=== PATIENT | male | born 1945 | race Caucasian/White ===

== ENCOUNTER 2023-02-03 17:55 | Outpatient (RCR) | payer MEDICARE, SELFPAY | END 2023-02-28 23:59 | disposition home or self-care (01) | LOC: MM 17:55 | PROVIDERS: PCP Internal Medicine; Visit Provider Internal Medicine | DX: Z51.81 Encounter for therapeutic drug level monitoring (principal); Z79.01 Long term (current) use of anticoagulants; I48.91 Unspecified atrial fibrillation | CPT/HCPCS: 85610; G0463 ==

== ENCOUNTER 2023-03-05 10:58 | Outpatient (RCR) | payer MEDICARE, SELFPAY | END 2023-03-31 16:46 | disposition home or self-care (01) | LOC: MM 10:58 | PROVIDERS: PCP Internal Medicine; Visit Provider Internal Medicine | DX: Z51.81 Encounter for therapeutic drug level monitoring (principal); Z79.01 Long term (current) use of anticoagulants; I48.91 Unspecified atrial fibrillation ==

== ENCOUNTER 2023-04-01 08:58 | Outpatient (RCR) | payer MEDICARE, SELFPAY | END 2023-05-01 15:48 | disposition home or self-care (01) | LOC: MM 08:58 | PROVIDERS: Visit Provider Internal Medicine | DX: Z51.81 Encounter for therapeutic drug level monitoring (principal); Z79.01 Long term (current) use of anticoagulants; I48.91 Unspecified atrial fibrillation | CPT/HCPCS: 85610; G0463 ==

== ENCOUNTER 2023-05-02 08:03 | Outpatient (RCR) | payer MEDICARE, SELFPAY | END 2023-05-30 16:32 | disposition home or self-care (01) | LOC: MM 08:03 | PROVIDERS: Visit Provider Internal Medicine | DX: Z51.81 Encounter for therapeutic drug level monitoring (principal); Z79.01 Long term (current) use of anticoagulants; I48.91 Unspecified atrial fibrillation | CPT/HCPCS: 85610; G0463 ==

== ENCOUNTER 2023-06-02 01:28 | Outpatient (RCR) | payer MEDICARE, SELFPAY | END 2023-07-01 17:11 | disposition home or self-care (01) | LOC: MM 01:28 | PROVIDERS: Visit Provider Internal Medicine | DX: Z51.81 Encounter for therapeutic drug level monitoring (principal); Z79.01 Long term (current) use of anticoagulants; I48.91 Unspecified atrial fibrillation | CPT/HCPCS: 85610; G0463 ==

== ENCOUNTER 2023-07-02 00:33 | Outpatient (RCR) | payer MEDICARE, SELFPAY | END 2023-07-31 16:35 | disposition home or self-care (01) | LOC: MM 00:33 | PROVIDERS: Visit Provider Internal Medicine | DX: Z51.81 Encounter for therapeutic drug level monitoring (principal); Z79.01 Long term (current) use of anticoagulants; I48.91 Unspecified atrial fibrillation ==

== ENCOUNTER 2023-08-01 08:57 | Outpatient (RCR) | payer MEDICARE, SELFPAY | END 2023-08-29 15:00 | disposition home or self-care (01) | LOC: MM 08:57 | PROVIDERS: Visit Provider Internal Medicine | DX: Z51.81 Encounter for therapeutic drug level monitoring (principal); Z79.01 Long term (current) use of anticoagulants; I48.91 Unspecified atrial fibrillation | CPT/HCPCS: 85610; G0463 ==

== ENCOUNTER 2023-08-14 09:03 | Outpatient (OUT) | payer MEDICARE, SELFPAY ==
[2023-08-14 09:14] LABS: Basophils Absolute Auto 0.1 10^3/uL (0.0-0.1); Basophils Percent Auto 1.1 % (0.2-2.0); Eosinophils Absolute Auto 0.1 10^3/uL (0.0-0.7); Eosinophils Percent Auto 1.8 % (0.9-7.0); Hematocrit 47.2 % (42.0-54.0); Hemoglobin 15.5 g/dL (14.0-18.0); Immature Granulocytes Abs Auto 0.02 10^3/uL (0.00-0.03); Immature Granulocytes Pct Auto 0.4 % (0.0-0.5); Lymphocytes Absolute Auto 1.3 10^3/uL (1.2-3.8); Lymphocytes Percent Auto 22.4 % (20.5-60.0); Mean Corpuscular HGB Conc 32.8 g/dL (29.9-35.2); Mean Corpuscular Volume 97.3 fL (80.0-94.0); Mean Platelet Volume 10.3 fL (9.5-13.5); Monocytes Absolute Auto 0.5 10^3/uL (0.3-0.8); Monocytes Percent Auto 9.3 % (1.7-12.0); Neutrophils Absolute Auto 3.7 10^3/uL (1.4-6.5); Platelet Count 161 10^3/uL (150-450); Red Blood Count 4.85 10^6/uL (4.70-6.10); Red Cell Distribution Width 12.5 % (11.0-15.0); White Blood Count 5.7 10^3/uL (4.0-11.0)
[2023-08-14 09:49] LABS: Anion Gap 10.3; BUN Creatinine Ratio 14.2; Calcium 8.8 mg/dL (8.5-10.1); Carbon Dioxide 29.8 mmol/L (21.0-32.0); Chloride 102 mmol/L (98-107); Chol HDL Ratio 3.8; Cholesterol 226 mg/dL (<=200); Estimated GFR (African America >60 (>=60); Estimated GFR (Non-African Ame >60 (>=60); Glucose 100 mg/dL (74-106); HDL Cholesterol 60 mg/dL (40-60); Potassium 4.1 mmol/L (3.5-5.1); Sodium 138 mmol/L (136-145); Triglycerides 73 mg/dL (<=150); VLDL CHOLESTEROL 14.6 mg/dL
== END 2023-08-14 09:04 | disposition home or self-care (01) ==
LOC: LAB 09:03
PROVIDERS: PCP Internal Medicine; Visit Provider Internal Medicine
DX: E78.00 Pure hypercholesterolemia, unspecified (principal); I25.10 Atherosclerotic heart disease of native coronary artery without angina pectoris; Z12.5 Encounter for screening for malignant neoplasm of prostate; Z79.01 Long term (current) use of anticoagulants; Z79.899 Other long term (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
CPT/HCPCS: 36415; 80048; 80061; 85025; G0103

== ENCOUNTER 2023-09-01 00:32 | Outpatient (RCR) | payer MEDICARE, SELFPAY | END 2023-10-01 15:44 | disposition home or self-care (01) | LOC: MM 00:32 | PROVIDERS: PCP Internal Medicine; Visit Provider Internal Medicine | DX: Z51.81 Encounter for therapeutic drug level monitoring (principal); Z79.01 Long term (current) use of anticoagulants | CPT/HCPCS: 85610; G0463 ==

== ENCOUNTER 2023-10-02 01:27 | Outpatient (RCR) | payer MEDICARE, SELFPAY | END 2023-10-30 17:07 | disposition home or self-care (01) | LOC: MM 01:27 | PROVIDERS: PCP Internal Medicine; Visit Provider Internal Medicine | DX: Z51.81 Encounter for therapeutic drug level monitoring (principal); Z79.01 Long term (current) use of anticoagulants ==

== ENCOUNTER 2023-10-31 01:02 | Outpatient (RCR) | payer MEDICARE, SELFPAY | END 2023-11-28 12:59 | disposition home or self-care (01) | LOC: MM 01:02 | PROVIDERS: PCP Internal Medicine; Visit Provider Internal Medicine | DX: Z51.81 Encounter for therapeutic drug level monitoring (principal); Z79.01 Long term (current) use of anticoagulants | CPT/HCPCS: 85610; G0463 ==

== ENCOUNTER 2023-12-01 00:04 | Outpatient (RCR) | payer MEDICARE, SELFPAY | END 2023-12-30 17:44 | disposition home or self-care (01) | LOC: MM 00:04 | PROVIDERS: PCP Internal Medicine; Visit Provider Internal Medicine | DX: Z51.81 Encounter for therapeutic drug level monitoring (principal); Z79.01 Long term (current) use of anticoagulants | CPT/HCPCS: 85610; G0463 ==

== ENCOUNTER 2023-12-11 11:00 | Outpatient (OUT) | payer MEDICARE, SELFPAY ==
--- NOTE | 2023-12-11 11:08 | XR_ITS ---
The [address] [address] Patient Name: MCKAYLA JAMA MRN: [id number] date: 1945 Sex: M Assigned Patient Location: [facility] Current Patient Location: Accession/Order Number: [id number] Exam Date: 12/11/2023 11:10 Report Date: 12/12/2023 07:06 At the request of: HEIKE BACON Procedure: XR knee LT 4V PROCEDURE: XR knee LT 4V HISTORY: left knee pain M25.562 ; chronic COMPARISON: None. FINDINGS: BONES:Mild and medial joint space and small periarticular degenerative osteophytes involving all 3 compartments. Prominent degenerative enthesophyte at quadriceps tendon insertion into the patella. No fracture, dislocation, bone lesion. SOFT TISSUES:No visible soft tissue swelling. EFFUSION:Small joint effusion. OTHER: Negative. XR/XR knee LT 4V IMPRESSION: 1. Mild to moderate degenerative joint disease and small joint effusion. Electronically authenticated by: KELLE FISHER Date: 12/12/2023 07:06
== END 2023-12-11 11:01 | disposition home or self-care (01) ==
LOC: RAD 11:02
PROVIDERS: PCP Internal Medicine; Visit Provider Internal Medicine
DX: M25.562 Pain in left knee (principal); M17.12 Unilateral primary osteoarthritis, left knee; M25.462 Effusion, left knee
CPT/HCPCS: 73564

== ENCOUNTER 2023-12-31 00:13 | Outpatient (RCR) | payer MEDICARE, SELFPAY | END 2024-01-30 11:07 | disposition home or self-care (01) | LOC: MM 00:13 | PROVIDERS: PCP Internal Medicine; Visit Provider Internal Medicine | DX: Z51.81 Encounter for therapeutic drug level monitoring (principal); Z79.01 Long term (current) use of anticoagulants ==

== ENCOUNTER 2024-01-07 08:24 | Outpatient (OUT) | payer MEDICARE, SELFPAY ==
--- NOTE | 2024-01-07 08:00 | NM_ITS ---
Patient Name: MCKAYLA JAMA MR#: [id number] : 1945 Exam Date: 01/07/2024 Ordering Doctor: DR Domingo Patterson D.O. RADIOLOGY REPORT PROCEDURE: NM SHANTE PERF SPECT REST STR COMPARISON: None. INDICATIONS: DYSPNEA, CORONARY ARTERY DISEASE, ATRIAL FIBRILLATION TECHNIQUE: Exam Description: Stress/Rest two day protocol gated SPECT Rest Imagin.5 mCi Tc-99m Cardiolite IV on 01/07/2024 Stress Imaging 27.0 mCi Tc-99m Cardiolite IV on 01/08/2024 Exercise Protocol: 0.4 mg Lexiscan given IV Heart Rate (bpm): Rest: 82 Max: 105 PMHR: 73 Blood Pressure: Rest: 172/86 Max: 192/102 Symptoms: Chest pain Rest and peak stress ECG findings were abnormal and the exercise portion of the study was abnormal per attending physician Dr. Walter Patterson due toEKG changes. For more details please see separate cardiac stress test report. FINDINGS: QUALITY OF STUDY: Good. PERFUSION DEFECT: LOCATION: Basal inferolateral. Mid-inferior. Mid-anterolateral. Apical lateral. SIZE: SEVERITY: Moderate. TYPE: Reversible. WALL MOTION: Dyskinesis: Mid-anterior. LV SIZE: Enlarged; EDV 124 mL. TID / TCD: None; 1.1 LVEF: Abnormal. Calculated EF 51%. SUMMARY: Myocardial perfusion imaging study has ABNORMAL findings. CONCLUSION: 1. Reversible moderate acute ischemia involving mid inferior and basal inferior lateral segments. 2. Reversible mild acute ischemia involving mid anterior lateral and apically lateral segments. 3. Wall motion demonstrates dyskinesis of mid anterior wall. 4. Borderline enlarged left ventricle, 124 mL. 5. Low left ventricle ejection fraction, 51%. Dictated by: Benji Louie M.D. on 01/08/2024 at 15:55 Approved by: Benji Louie M.D. on 01/08/2024 at 16:04
--- NOTE | 2024-01-07 08:30 | CA_ITS ---
Patient Name: MCKAYLA JAMA MR#: [id number] : 1945 Exam Date: 01/07/2024 Ordering Doctor: DR Domingo Patterson D.O. ECHOCARDIOGRAM REPORT PROCEDURE: CA ECHO DOPPLER COMPLETE INDICATIONS: Chest pain, atrial fibrillation, CABGx2. hypertension COMPARISON: None. DESCRIPTION: COMPLETE ECHOCARDIOGRAM Real-time transthoracic echocardiography with 2D, M-mode, spectral and color flow Doppler performed. QUALITY: Technical quality was limited due to poor sound transmission. 71 , 230#, BSA 2.24 m2, BP 162/88 LEFT VENTRICLE: Normal chamber size. Thickened septal wall. Abnormal septal motion, not uncommonly seen post open heart status. Systolic function is difficult to assess but appears at the lower limits of normal. LV EF: Lower limits of normal left ventricular ejection fraction, (50%). DIASTOLIC: Not adequately assessed due to heart rhythm. ATRIAL SEPTUM: Visually appears intact. LEFT ATRIUM: Mild dilatation. RIGHT ATRIUM: Moderate dilatation. RIGHT VENTRICLE: Mild dilatation. Low normal right ventricular systolic function. TRICUSPID VALVE: Normal mobility and thickness. No stenosis with trivial regurgitation. Doppler studies reveal moderately (45-60) elevated right sided pressures. RVSP 55 mmHg MITRAL VALVE: Normal mobility and thickness. No evidence of mitral valve stenosis. There is no mitral annular calcification. Trivial mitral regurgitation. AORTIC VALVE: Normal trileaflet appearance. Mildly calcified aortic valve. Mildly diminished mobility. No evidence of aortic valve stenosis. DVI 0.5, JOSE DANIEL 2.1 cm2. No aortic regurgitation. AORTIC ROOT: Normal diameter and appearance. PULMONIC VALVE: Not well visualized. PERICARDIUM: No evidence of pericardial effusion. IVC: IVC is dilated (3.4 cm), does not fully collapse. PLEURA: CONCLUSION: 1. Technically limited study due to poor sound transmission. 2. Left ventricular systolic function is at the lower limits of normal. LVEF is 50%. 3. The right ventricle is moderately dilated with low normal systolic function. 4. No significant valvular dysfunction. 5. Mild to moderate biatrial dilatation. 6. Moderately elevated right sided pressures. RVSP is 55 mmHg. 7. The patient appears to be in atrial fibrillation during the exam. Adult Echocardiography Procedure Report Left Ventricle LVEDD (3.7 - 5.6 cm): 5.23 cm LVESD (2.2 - 4.0 cm): 3.92 cm LVIVS thickness (0.6 - 1.2 cm): 1.16 cm LVPW thickness (0.5 - 1.0 cm): 0.95 cm LVOT Max Gradient: 2.32 mm[Hg] LVOT Area (cm2): 0.76 m/s Peak Velocity (LVOT): 0.76 m/s Mean Velocity (LVOT): 0.54 m/s LVOT Diameter 2.08 cm Left Atrium LA Volume Index (2D A2C): 40.76 ml/m2 Left Atrium Systolic Dimension: 4.53 cm Mitral Valve Mitral Valve E-Wave Peak Velocity: 0.97 m/s Right Ventricle Aorta AO Root Diam: 3.04 cm Aortic Valve AoV Area (Peak Servando): 1.84 cm2, 1.84 cm2, 3.34 cm2, 3.34 cm2 AoV Area (VTI): 2.08 cm2, 2.08 cm2 Peak Velocity(Antegrade Flow): 1.41 m/s, 0.78 m/s Peak Gradient(Antegrade Flow): 2.40 mm[Hg], 7.94 mm[Hg] Mean Velocity(Antegrade Flow): 0.99 m/s Mean Gradient(Antegrade Flow): 4.49 mm[Hg] Velocity Time Integral: 28.88 cm Tricuspid Valve Peak Velocity (Regurgitant Flow): 3.16 m/s, 3.07 m/s Pulmonic Valve Peak Velocity: 0.51 m/s Peak Gradient: 1.06 mm[Hg] Right Atrium Right Atrium Systolic Pressure: 121.32 ml, 121.32 ml Dictated by: Colton Weiss M.D. on 01/08/2024 at 17:17 Approved by: Colton Weiss M.D. on 01/08/2024 at 17:28
--- OUTSIDE RECORDS SUMMARY | 2024-01-07 08:44 | XMS_ITS | CCD ---
Author Organization [facility] Care Team Providers Care Head Of Data Name Role Phone DOMINGO PATTERSON Primary Care Physician JOAQUÍN SAUL Attending Unavailable MAURO COELHO Referring Unavailab MYA Baird Attending Unavailable MAURO COELHO Referring Unavailab Domingo Quesada Primary Care Unavailable Ilir Mack Jr Admitting Unavailable Ilir Mack Jr Attending Unavailable Ilir Mack Jr Admitting Unavailable Domingo Patterson Primary Care Unavailable Ilir Mack Jr Attending Unavailable Domingo Patterson Primary Care Unavailable Frederick Cabrera, Ilir Attending Unavailable Frederick Cabrera, Ilir Admitting Unavailable Domingo Patterson Unavailable Sukhjinder MONTEMAYOR Attending Unavailable Sukhjinder MONTEMAYOR Attending Unavailable LEONARDO, DR BURROUGHS Primary Care Unavailable FAWWAD, DA SILVA H Admitting Unavailable ASHISHWVALERIED, DA SILVA H Attending Unavailable LEONARDO, DR BURROUGHS Primary Care Unavailable FAWWAD, DA SILVA H Admitting Unavailable FAWWAD, DA SILVA H Attending Unavailable LEONARDO, DR BURROUGHS Primary Care Unavailable FAWWAD, DA SILVA H Admitting Unavailable FAWWAD, DA SILVA H Attending Unavailable FAWWAD, DA SILVA H Admitting Unavailable BALL, DR BURROUGHS Primary Care Unavailable FAWWAD, DA SILVA H Attending Unavailable FAWWAD, DA SILVA H Attending Unavailable BALL, DR BURROUGHS Primary Care Unavailable FAWWAD, DA SILVA H Admitting Unavailable FAWWAD, DA SILVA H Attending Unavailable BALL, DR BURROUGHS Primary Care Unavailable FAWWAD, DA SILVA H Admitting Unavailable BALL, DR BURROUGHS Primary Care Unavailable FAWWAD, DA SILVA H Attending Unavailable FAWWAD, DA SILVA H Admitting Unavailable FAWWAD, DA SILVA H Attending Unavailable LEONARDO, DR BURROUGHS Primary Care Unavailable FAWWAD, DA SILVA H Admitting Unavailable BALL, DR BURROUGHS Admitting Unavailable BALL, DR BURROUGHS Attending Unavailable BALL, DR BURROUGHS Consulting Unavailable BALL, DR BURROUGHS Primary Care Unavailable WADESBORO, DR LEDA Dennis Consulting Unavailable PETROS, DA SILVA H Attending Unavailable LEONARDO, DR BURROUGHS Primary Care Unavailable FAWWAD, DA SILVA H Admitting Unavailable FAWVALERIED, DA SILVA H Attending Unavailable LEONARDO, DR BURROUGHS Primary Care Unavailable FAWFABIAN, DA SILVA H Admitting Unavailable LEONARDO, DR BURRUOGHS Primary Care Unavailable FAWVALERIED, DA SILVA H Admitting Unavailable FAWWAD, DA SILVA H Attending Unavailable RUI DORSEY Attending Unavailable WILEY ABAD Attending Unavailable Allergies Allergy Classification Reported Allergen(s) Allergy Type Date of Onset Reaction(s) Facility (4 sources) atorvastatin Drug Allergy Unknown Clip Other (1 source) patient allergy list reviewed by nurse or physicia Propensity to adverse reactions 3 Comment:Done Clip Other Medications Current Medications Medication Drug Class(es) Dates Sig (Normalized) Sig (Original) ALPRAZolam 0.25 mg oral tablet (20 sources) Benzodiazepine Start: 12-04-2023 take 0.25 mg by mouth every six hours Alprazolam Active 0.25 MG PO Every 6 hours December 04, 2023 12:00am Start: 08-21-2023 ALPRAZolam 0.2 5 mg TAKE 1 TABLET BY MOUTH EVERY 6 HOURS NEEDED FOR ANXIETY *MUST LAST 30 DAYS* for 30 Aug, Active Start: 02-18-2023 take 1 tablet by daryl th every six hours as needed for anxiety ALPRAZolam 0.25 mg 1 tablet orally EVERY 6 HOURS NEEDED FOR ANXIETY MUST LAST 30 DAYS Jan, Active Start: 11-02-2021 End: 12-04-2023 take 1 tablet by mouth twice daily Alprazolam (Xanax) 0.25 mg Tablet Discontinued 0.25 MG PO Twice daily November 02, 2021 1:00am December 04, 2023 10:43am Start: 09-30-2019 Xanax Oral, TI D, Refills(s) 0 Start Date: 09/30/19 Status: Ordered aspirin 81 mg delayed release oral tablet (13 sources) Platelet Aggregation Inhibitor, Nonsteroidal Anti-inflammatory Drug Start: 11-02-2021 take 1 tablet by mouth once daily Aspirin (Aspirin Low Dose) 81 mg Tablet,Delayed Release (Dr/Ec) Active 81 MG PO Daily November 02, 2021 1:00am Start: 09-30-2019 aspirin Refill s(s) 0 Start Date: 09/30/19 Status: Ordered Aspirin 81 Activ e Losartan (17 sources) Angiotensin 2 Receptor Fabiola Start: 10-28-2023 take 1 tablet by mouth once daily Losartan Active 0 .ROUTE .COMPLEX 90 October 28, 2023 2:37pm TAKE 1 TABLET BY MOUTH EVERY DAY Start: 11-02-2021 End: 10-28-2023 take 25 mg by mouth once daily in the morning Losartan Discontinued 25 MG PO Every morning November 02, 2021 1:00am October 28, 2023 2:37pm Start: 09-30-2019 losartan Oral, Daily, Refills(s) 0 Start Date: 09/30/19 Status: Ordered metoprolol tartrate 75 mg oral tablet (17 sources) beta-Adrenergic Fabiola Start: 10-28-2023 take 1 tablet by mouth twice daily at mealtime Metoprolol Tartrate Active 0 .ROUTE .COMPLEX 180 October 28, 2023 2:36pm TAKE 1 TABLET BY MOUTH TWICE DAILY WITH FOOD Start: 11-02-2021 End: 10-28-2023 take 75 mg by mouth twice daily Metoprolol Tartrate Di scontinued 75 MG PO Twice daily November 02, 2021 1:00am October 28, 2023 2:37pm Start: 09-30-2019 take 1 mg by mouth once daily metoprolol 25 mg ER Tab mg tab(s), Oral, Daily, Refills(s) 0 Start Date: 09/30/19 Status: Ordered take 1 tablet by daryl th every twelve hours Metoprolol Tartrate 75 MG 1 tablet with food Orally Twice a day Active Multi Vitamin+ (2 sources) Start: 09-30-2019 Multi Vitamin+ Refill(s) 0 Start Date: 09/30/19 Status: Ordered Camden 3 (7 sources) Camden 3 Active Camden-3 (2 sources) Start: 09-30-2019 Camden-3 Refill (s) 0 Start Date: 09/30/19 Status: Ordered paxlovid (300/100) 20 x 150 mg & 10 x 100mg tablet therapy pack (3 sources) Start: 12-03-2022 take 3 tablets by mouth every twelve hours Paxlovid (300/100) 20 x 150 MG & 10 x 100MG 3 tablets Orally Twice a day for 5 day(s) Nov, Active warfarin sodium 4 mg oral tablet (17 sources) Vitamin K Antagonist Start: 11-02-2021 take 4 mg by mouth five times weekly Warfarin Active 4 MG PO 5 TIMES PER WEEK November 02, 2021 1:00am Sun/Fri/Fri/Fri/S at Start: 11-02-2021 take 6 mg by mouth t wo times weekly Warfarin Active 6 MG PO Twice a Week November 02, 2021 1:00am Tue and Thurs Start: 09-30-2019 warfarin Oral, Daily, Refills(s) 0 Start Date: 09/30/19 Status: Ordered take 1 tablet by mouth once chata y Warfarin Sodium 4 mg TAKE 1 & 1/2 (ONE AND ONE-HALF) TABLETS BY MOUTH ONCE DAILY Active {20 (nirmatrelvir 150 MG Oral Tablet) / 10 (ritonavir 100 MG Oral Tablet) } Pack [Paxlovid 5-Day] (4 sources) Start: 12-03-2022 take 3 tablets by mouth every twelve hours Paxlovid (300/100) 20 x 150 MG & 10 x 100MG 3 tablets Orally Twice a day for 5 day(s) Nov, Active Completed/Discontinued Medications Medication Drug Class(es) Dates Sig (Normalized) Sig (Original) cephalexin 500 mg oral capsule (4 sources) Cephalosporin Antibacterial Start: 11-07-2021 End: 12-04-2023 take 500 mg by mouth every twelve hours Cephalexin Discontinued 500 MG PO Q12H 4 2 November 07, 2021 1:00am December 04, 2023 10:44am Multivitamin preparation (11 sources) Start: 11-02-2021 End: 12-04-2023 take 1 tablet by mouth once daily Multivitamin Discontinued 1 TAB PO Daily November 02, 2021 1:00am December 04, 2023 10:44am Multivitamin Act josh Triamcinolone (7 sources) Corticosteroid Start: 10-09-2021 Kenalog -40 mg Oct, 40 mg Problems Active Problems Problem Classification Problem Date Documented Da te Episodic/Chronic Acute bronchitis (1 source) Acute bronchitis; Translations: [Acute bronchitis due to other specified organisms] Episodic Acute posthemorrhagic anemia (1 source) Acute posthemorrhagic anemia; Translations: [Acute posthemorrhagic anemia] Episodic Anxiety disorders (11 sources) Anxiety; Translations: [Generalized anxiety disorder] 09-30-2019 Chronic Cardiac dysrhythmias (10 sources) Permanent atrial fibrillation; Translations: [Permanent atrial fibrillation] Chronic Cataract (1 source) Other secondary cataract, bilateral; Translations: [PCO (posterior capsular opacification), bilateral] Onset: 08-13-2022 Chronic Coronary atherosclerosis and other heart disease (16 sources) Coronary arteriosclerosis; Translations: [Atherosclerotic heart disease of [place] coronary artery without angina pectoris] Onset: 03-23-2019 Chronic Disorders of lipid metabolism (13 sources) Hyperlipidemia; Translations: [Pure hypercholesterolemia] Onset: 08-01-2018 09-30-2019 Chronic Essential hypertension (4 sources) Hypertensive disorder; Translations: [Essential (primary) hypertension] 12-04-2023 Chronic Genitourinary symptoms and ill-defined conditions (2 sources) Post-micturition incontinence 10-05-2019 Chronic Genitourinary symptoms and ill-defined conditions (8 sources) Microscopic hematuria; Translations: [Asymptomatic microscopic hematuria] Onset: 11-27-2021 Episodic Hyperplasia of prostate (5 sources) Benign prostatic hypertrophy with outflow obstruction; Translations: [Benign prostatic hyperplasia with lower urinary tract symptoms] Onset: 11-27-2021 Chronic Immunizations and screening for infectious disease (1 source) Vaccination given; Translations: [Encounter for immunization] Episodic Joint disorders and dislocations; trauma-related (1 source) Current tear of medial cartilage AND/OR meniscus of knee; Translations: [Other tear of medial meniscus, current injury, unspecified knee, initial encounter] Episodic Nonspecific chest pain (1 source) Chest pain; Translations: [Chest pain, unspecified] Episodic Osteoarthritis (12 sources) Arthritis of right wrist; Translations: [Primary osteoarthritis, right wrist] 12-05-2023 Chronic Other aftercare (1 source) Long-term current use of anticoagulant; Translations: [long term care pharmacist (current) use of anticoagulants] Onset: 11-27-2021 Episodic Other aftercare (5 sources) Encounter for therapeutic drug level monitoring; Translations: [ENC THERAPEUTC DRUG LEVL MONITORING] Onset: 12-28-2022 Episodic Other aftercare (6 sources) [facility] (current) use of anticoagulants; Translations: [Long-term (current) use of anticoagulants] Onset: 01-29-2023 Episodic Other aftercare (1 source) Long-term current use of drug therapy; Translations: [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] Episodic Other aftercare (3 sources) Anticoagulant effect; Translations: [long term care pharmacist (current) use of anticoagulants] Episodic Other aftercare (1 source) Other fci (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 Episodic Other circulatory disease (1 source) Cardiovascular symptoms; Translations: [Other specified symptoms and signs involving the circulatory and respiratory systems] Episodic Other ear and sense organ disorders (1 source) Sensorineural hearing loss; Translations: [Unspecified sensorineural hearing loss] Chronic Other ear and sense organ disorders (1 source) Tinnitus; Translations: [Tinnitus, unspecified ear] Episodic Other gastrointestinal disorders (3 sources) Irritable bowel syndrome; Translations: [Irritable bowel syndrome] 09-30-2019 Chronic Other injuries and conditions due to external causes (2 sources) History of fall; Translations: [Personal history of fall] Onset: 09-24-2016 Episodic Other lower respiratory disease (1 source) Disorder of lung; Translations: [Other diseases of lung, not elsewhere classified] Episodic Other lower respiratory disease (1 source) Solitary nodule of lung; Translations: [Solitary pulmonary nodule] Episodic Other lower respiratory disease (1 source) Dyspnea; Translations: [Dyspnea, unspecified] Episodic Other non-traumatic joint disorders (1 source) Pain in wrist; Translations: [Pain in right wrist] Episodic Other non-traumatic joint disorders (1 source) Arthralgia of the lower leg; Translations: [Pain in right knee] Episodic Other non-traumatic joint disorders (4 sources) Pain in left knee; Translations: [Pain in joint, lower leg] 12-05-2023 Episodic Other nutritional; endocrine; and metabolic disorders (1 source) Body mass index 30+ - obesity; Translations: [Body mass index 30.0-30.9, adult] Onset: 09-24-2016 Chronic Other nutritional; endocrine; and metabolic disorders (1 source) Obese class I; Translations: [Body mass index 33.0-33.9, adult] Onset: 09-24-2016 Chronic Other nutritional; endocrine; and metabolic disorders (1 source) Obesity; Translations: [Obesity, unspecified] Chronic Other nutritional; endocrine; and metabolic disorders (1 source) Simple obesity ; Translations: [Other obesity due to excess calories] Onset: 07-31-2018 Chronic Other screening for suspected conditions (not mental disorders or infectious disease) (6 sources) Raised prostate specific antigen; Translations: [Elevated prostate specific antigen [PSA]] Onset: 11-27-2021 Episodic Poisoning by other medications and drugs (1 source) Poisoning by cardiotonic glycoside; Translations: [Poisoning by cardiotonic glycosides and drugs of similar action] Episodic Pulmonary heart disease (2 sources) H/O: pulmonary embolus; Translations: [Personal history of pulmonary embolism] Episodic Residual codes; unclassified (1 source) Other specified personal risk factors, not elsewhere classified; Translations: [Personal risk factor] Episodic Spondylosis; intervertebral disc disorders; other back problems (2 sources) Lumbosacral spondylosis without myelopathy; Translations: [Lumbosacral spondylosis without myelopathy] Chronic Sprains and strains (1 source) Sprain of left knee; Translations: [Sprain of other specified parts of left knee, initial encounter] Episodic Unclassified (2 sources) Asymptomatic microscopic hematuria 11-27-2021 Unclassified (2 sources) Drug therapy finding 11-27-2021 Unclassified (1 source) R97.20 - Elevated prostate specific antigen [PSA]; Translations: [R97.20 - Elevated prostate specific antigen [PSA]] Onset: 11-07-2021 Unclassified (1 source) Z01.812 - Encounter for preprocedural laboratory examination; Translations: [Z01.812 - Encounter for preprocedural laboratory examination] Onset: 11-05-2021 Unclassified (5 sources) Chronic atrial fibrillation, unspecified; Translations: [CHRONIC ATRIAL FIBRILLATION UNSPEC] Onset: 12-02-2022 Past or Other Problems Problem Classification Problem Date Documented Da te Episodic/Chronic Abdominal pain (1 source) Left lower quadrant pain; Translations: [Left lower quadrant pain] Onset: 06-22-2015 Episodic Anxiety disorders (1 source) Anhedonia; Translations: [Anhedonia] Onset: 06-22-2015 Episodic Bacterial infection; unspecified site (1 source) Bacterial infectious disease; Translations: [Bacterial infection, unspecified, in conditions classified elsewhere and of unspecified site] Onset: 09-24-2016 Episodic Malaise and fatigue (1 source) Malaise and fatigue; Translations: [Other malaise and fatigue] Onset: 06-21-2016 Episodic Other circulatory disease (4 sources) Other specified symptoms and signs involving the circulatory and respiratory systems; Translations: [OTH SPEC SX SIGNS INVLV CIRC RS] Onset: 07-05-2022 Episodic Other upper respiratory infections (1 source) Acute maxillary sinusitis; Translations: [Acute maxillary sinusitis, unspecified] Onset: 09-24-2016 Episodic Residual codes; unclassified (1 source) Requires influenza virus vaccination; Translations: [Need for prophylactic vaccination and inoculation, Influenza] Onset: 06-30-2017 Episodic Residual codes; unclassified (1 source) Tobacco user; Translations: [Nondependent tobacco use disorder] Onset: 05-21-2013 Episodic Screening and history of mental health and substance abuse codes (1 source) History of tobacco use; Translations: [Personal history of tobacco use, presenting hazards to health] Onset: 09-24-2016 Episodic Unclassified (3 sources) Permanent atrial fibrillation Unclassified (1 source) Long-term current use of drug therapy; Translations: [Long-term (current) use of other medications] Onset: 06-30-2017 Viral infection (2 sources) COVID-19 Results Test Name Value Interpretation Reference Range Facil ity Provider Letteron 11-21-2022 Provider Letter November 21, 2022 DAVID JAMA [id number] [id number] DAVID JAMA 1945 Dear Roselia Jama, We have been trying to reach you with no success. You have an appointment with Dr. Ilir Mack on December 03, 3022 at 8am which will need to be rescheduled since he will be out of the office that day. Please contact the office at the number listed below to get this appointment rescheduled at your earliest convenience. Thank you for your prompt attention to this matter. Please call [phone] before end october to reschedule! Sincerely, [facility] [address], [place] [address] [facility] US CAROTID ART BILon 2 022 US CAROTID ART MICH EXAMINATION: US CAROTID ART MICH HISTORY: Cardiovascular symptoms COMPARISON: No relevant comparison available. TECHNIQUE: Duplex Doppler ultrasound analysis of carotid and vertebral arteries. . Bilateral carotid arterial duplex examination was performed using B-mode, color flow and spectral analysis. Carotid stenosis is reported according to validated velocity parameters, similar to NASCET criteria. FINDINGS: RIGHT CAROTID ARTERY Mild atherosclerotic plaque Subclavian: PSV: 80.1 cm/s cm/s EDV: 0.0 cm/s cm/s CCA: Prox: PSV: 86.6 cm/s cm/s EDV: 18.0 cm/s cm/s Mid: PSV: 84.9 cm/s cm/s EDV: 16.3 cm/s cm/s Distal: PSV: 69.3 cm/s cm/s EDV: 25.4 cm/s cm/s BULB: PSV: 67.7 cm/s cm/s EDV: 19.3 cm/s cm/s ICA: Prox: PSV: 77.6 cm/s cm/s EDV: 22.6 cm/s cm/s Mid: PSV: 68.8 cm/s cm/s EDV: 22.6 cm/s cm/s Distal: PSV: 79.8 cm/s cm/s EDV: 27.0 cm/s cm/s ECA: PSV: 109.2 cm/s cm/s EDV: 26.8 cm/s cm/s VERTEBRAL: PSV: 38.2 cm/s cm/s EDV: 12.5 cm/s cm/s ICA/CCA ratio: PSV: 0.9 EDV: 1.7 LEFT CAROTID ARTERY Mild atherosclerotic plaque Subclavian: PSV: 92.7 cm/s cm/s EDV: 0.0 cm/s CCA: Prox: PSV: 106.0 cm/s cm/s EDV: 26.8 cm/s Mid: PSV: 94.7 cm/s cm/s EDV: 26.8 cm/s Distal: PSV: 78.4 cm/s cm/s EDV: 21.5 cm/s BULB: PSV: 70.7 cm/s cm/s EDV: 16.3 cm/s ICA: Prox: PSV: 66.8 cm/s cm/s EDV: 22.8 cm/s Mid: PSV: 69.9 cm/s cm/s EDV: 25.9 cm/s Distal: PSV: 75.4 cm/s cm/s EDV: 27.0 cm/s ECA: PSV: 109.2 cm/s cm/s EDV: 20.4 cm/s VERTEBRAL: PSV: 46.8 cm/s cm/s EDV: 14.5 cm/s ICA/CCA ratio: PSV: 0.8 EDV: 1.0 IMPRESSION: 0-49% flow stenosis bilateral internal carotid arteries Spectral Doppler US Thresholds (Reference: José Manuel EG, et al. Radiology 2000; 214:247-252) Stenosis (%) PSV (cm/sec) VICA/VCCA 0-49 <150 <2.5 50-69 150-225 2.5-4.0 >70 >225 >4.0 Electronically authenticated by: LEDA MORALES Date: 2022-07-05 17:14 Normal [facility] RAD - CT Reporton 01-30-2022 RAD - CT Report [id number] Normal [facility] 11-07-2021 L - -------- Specimen: [id number] Received: 11/07/21 Status: RODRIGO Rose Num: [id number] Spec Type: Surgical Subm Dr: Ilir Mack Jr, MD, FACS Tissues: A Prostate - Needle Biopsy (REGION OF INTEREST) Procedures: HE Stain/2, Gross/Micro L4 -------- Patient Age/Sex Location Account Attending Physician -------- David Jama 76/M [place] [id number] Ilir Mack Jr, MD, FACS -------- SPEC NUM: [id number] RECD: 11/07/21 STATUS: RODRIGO ROSE NUM: [id number] YOVANI: 11/07/21- DR: Ilir Mack Jr, MD, FACS ENTERED: 11/07/[address]: FELICITA TYPE: Surgical DEPT: S ORDERED: HE Stain/2, Gross/Micro L4 ORDERED: HE Stain/2, Gross/Micro L4, Unstained Slide/2 Pathological Diagnosis Prostate biopsy: - Benign prostatic tissue, areas of glandular atrophy and chronic prostatitis. Clinical Information BPH Gross Description Received in formalin labeled with the patient's name, number and region of interest are multiple tamayo, cylindrical tissue fragments, 0.1 cm to 1.7 cm in length x 0.1 cm in diameter. The specimen is entirely submitted in one cassette labeled A1. (/WK) Microscopic Description Two H E reviewed. PIN immunostain cocktail demonstrates absence of adenocarcinoma. Immunostain control is adequate. CPT Codes 19651, 22104 -------- -------- Specimen: [id number] Received: 11/07/21 Status: RODRIGO Milton Num: [id number] Spec Type: Surgical Subm Dr: Ilir Mack Jr, MD, FACS Tissues: A Prostate - Needle Biopsy (REGION OF INTEREST) Procedures: HE Stain/2, Gross/Micro L4 -------- Patient: David Jama [id number] (Continued) -------- Signed (signature on file) Kamari Candelario MD 11/08/21 [address] [facility] Partial Thromboplastin Timeo n 11-07-2021 aPTT Coag (Bld) [Time] 29.9 s Normal 25.1-36.5 [facility] Comment on above: Result Comment: PERF ORMED BY: [place] [address] PATHOLOGIST FINANCIAL PLANNER ERICK AMARO M.D. Performed By: #### P T, PTT #### [facility] [address] [place] [address] Prothrombin Time INRon 11-07 INR Coag (PPP) [Relative time] 1.2 {INR} Normal [facility] Comment on above: Result Comment: INR Therapeutic Range A) Pre- and Peroperative OAT started two weeks before surgery. NOT HIP SURGERY: 1.5 - 2.5 HIP SURGERY: 2 - 3 B) Primary and secondary prevention of venous THROMBOSIS: 2 - 3 C) Active venous thrombosis, pulmonary embolism and prevention of recurrent venous thrombosis: 2 - 3 D) Prevention of arterial thromboembolism including patients with mechanical heart valves: 3 - 4.5 Performed By: #### P T, PTT #### [facility] [address] [place] [address] PT Coag (PPP) [Time] 13.1 s High 9.0-12.9 [facility] Comment on above: Performed By: #### P T, PTT #### [address] COVID-19 FRMCon 11-05-2021 SARS-CoV-2 (COVID-19) RNA MAC+probe Ql (Unsp spec) Negative Normal Negative [facility] Comment on above: Order Comment: Healt hcare Worker?: N Result Comment: Testing for SARS-CoV-2 by RT-PCR This test was developed and its performance characteristics determined by [employer] and validated at the [facility]. This test has not been FDA cleared or approved. This test has been authorized by FDA under an Emergency Use Authorization (EUA). This test has been validated in accordance with the FDA's Guidance Document (Policy for Diagnostics Testing in Laboratories Certified to Perform High Complexity Testing under CLIA prior to Emergency Use Authorization for Coronavirus Disease-2019 during the Public Health Emergency) issued on December 02, 2019. This test is only authorized for the duration of time the declaration that circumstances exist justifying the authorization of the emergency use of in vitro diagnostic tests for detection of SARS-CoV-2 virus and/or diagnosis of COVID-19 infection under section 564(b)(1) of the Act, 21 U.S.C. 360bbb-3(b)(1), unless the authorization is terminated or revoked sooner. PERFORMED BY: [place] [address] PATHOLOGIST FINANCIAL PLANNER ERICK AMARO M.D. Performed By: #### C OVID 19 [facility] #### [address] Basic Metabolic Panelon 03-0 Calcium [Mass/Vol] 9.5 mg/dL Normal 8.2-10.2 [facility] Comment on above: Result Comment: PERF ORMED BY: [place] [address] PATHOLOGIST FINANCIAL PLANNER ERICK AMARO M.D. Performed By: #### C BC, BMP #### [address] Chloride [Moles/Vol] 99 mmol/L Normal 95-114 [facility] Comment on above: Performed By: #### C BC, BMP #### [place] [id number] [facility] CO2 [Moles/Vol] 28.7 mmol/L Normal 22.0-30.0 [facility] Comment on above: Performed By: #### C BC, BMP #### [address] Creatinine [Mass/Vol] 1.23 mg/dL Normal 0.64-1.27 [facility] Comment on above: Performed By: #### C BC, BMP #### [facility] [address] Estimated GFR ( An > 60 Normal [facility] Comment on above: Result Comment: GFR estimated reference range: According to KDOQI guidelines, <60 ml/min/1.73m2 is sufficient to diagnose a patient with chronic kidney disease. Performed By: #### C BC, BMP #### [address] Estimated GFR (Non- Am 57 Normal [facility] Comment on above: Performed By: #### C BC, BMP #### [address] Glucose [Mass/Vol] 83 mg/dL Normal 70-100 [facility] Comment on above: Result Comment: [place] Glucose Reference Range is dependent on time and content of last meal. Glucose of more than 200 mg/dL in a nonstressed, ambulatory subject supports the diagnosis of Diabetes Mellitus. ADA recommended reference range Performed By: #### C BC, BMP #### [address] Potassium [Moles/Vol] 4.7 mmol/L Normal 3.5-5.1 [facility] Comment on above: Performed By: #### C BC, BMP #### [address] Sodium [Moles/Vol] 136 mmol/L Normal 136-146 [facility] Comment on above: Performed By: #### C BC, BMP #### [address] Urea nitrogen [Mass/Vol] 18 mg/dL Normal 9-23 [facility] Comment on above: Performed By: #### C BC, BMP #### [address] Complete Blood Count Auto Di ffon 11-02-2021 Basophils (Bld) [#/Vol] 0.0 10*3/uL Normal 0.0-0.2 [facility] Comment on above: Result Comment: PERF ORMED BY: [place] [address] PATHOLOGIST [employer]CIAL PLANNER ERICK AMARO M.D. Performed By: #### C BC, BMP #### [place] [address] [place] Basophils/100 WBC (Bld) 0.7 % Normal . [facility] Comment on above: Performed By: #### C BC, BMP #### [facility] [address] [place] [address] [place] Eosinophils (Bld) [#/Vol] 0.1 10*3/uL Normal 0.0-0.45 [facility] Comment on above: Performed By: #### C BC, BMP #### [facility] [address] [place] [address] [place] Eosinophils/100 WBC (Bld) 1.7 % Normal . [facility] Comment on above: Performed By: #### C BC, BMP #### [address] Erythrocyte distribution width (RBC) [Ratio] 13.1 % Normal 12.0-14.8 [facility] Comment on above: Performed By: #### C BC, BMP #### [address] Hematocrit (Bld) [Volume fraction] 47.8 % Normal 38.8-50.0 [facility] Comment on above: Performed By: #### C BC, BMP #### [address] Hemoglobin (Bld) [Mass/Vol] 16.3 g/dL Normal 13.0-17.0 [facility] Comment on above: Performed By: #### C BC, BMP #### [place] [address] [place] Lymphocytes (Bld) [#/Vol] 1.3 10*3/uL Normal 1.00-4.8 [facility] Comment on above: Performed By: #### C BC, BMP #### [place] [address] [place] Lymphocytes/100 WBC (Bld) 19.6 % Normal . [facility] Comment on above: Performed By: #### C BC, BMP #### [address] MCH (RBC) [Entitic mass] 32.5 pg Normal 27.5-35.2 [facility] Comment on above: Performed By: #### C BC, BMP #### [facility] [address] MCV (RBC) [Entitic vol] 95.0 fL Normal 83.5-101 [facility] Comment on above: Performed By: #### C BC, BMP #### [facility] [address] Mean Corpuscular HGB Conc 34.2 g/dL Normal 32.5-35.6 [facility] Comment on above: Performed By: #### C BC, BMP #### [facility] [address] Monocytes (Bld) [#/Vol] 0.7 10*3/uL Normal 0.0-0.8 [facility] Comment on above: Performed By: #### C BC, BMP #### [facility] [address] Monocytes/100 WBC (Bld) 10.0 % Normal . [facility] Comment on above: Performed By: #### C BC, BMP #### [facility] [address] [place] [address] [place] Neutrophils (Bld) [#/Vol] 4.4 10*3/uL Normal 1.8-7.7 [facility] Comment on above: Performed By: #### C BC, BMP #### [facility] [address] [place] [address] [place] Neutrophils/100 WBC (Bld) 68.0 % Normal . [facility] Comment on above: Performed By: #### C BC, BMP #### [facility] [address] [place] [address] [place] Nucleated RBC/100 WBC (Bld) [Ratio] 0.2 % Normal 0-0.5 [facility] Comment on above: Performed By: #### C BC, BMP #### [facility] [address] Platelet mean volume (Bld) [Entitic vol] 8.9 fL Normal 6.6-10.1 [facility] Comment on above: Performed By: #### C BC, BMP #### [facility] [address] Platelets (Bld) [#/Vol] 173 10*3/uL Normal 150-450 [facility] Comment on above: Performed By: #### C BC, BMP #### [facility] [address] RBC (Bld) [#/Vol] 5.03 10*6/uL Normal 3.90-5.60 [facility] Comment on above: Performed By: #### C BC, BMP #### [facility] [address] [place] [id number] [facility] WBC (Bld) [#/Vol] 6.5 10*3/uL Normal 4.5-11.0 [facility] Comment on above: Performed By: #### C BC, BMP #### [facility] [address] ECG 12 lead ECGon 11-02-2021 ECG 12 lead ECG [facility] [address] [place] [address] [place] [address] Electrocardiograph Report Signed Patient: David Jama MR#: [id number] : 1945 Acct:[id number] Age/Sex: 76 / M ADM Date: 11/02/21 Loc: Room: Type: [facility] Attending Dr: Ilir Mack Jr, MD Ordering Provider: Ilir Mack Jr, MD, FACS Date of Service: 11/02/2112/21/699 ECG/ECG 12 lead ECG: Urology Surgery Copies to: Test Reason : Blood Pressure : / mmHG Vent. Rate : 079 BPM Atrial Rate : 089 BPM P-R Int : 000 ms QRS Dur : 080 ms QT Int : 378 ms P-R-T Axes : 000 048 -07 degrees QTc Int : 433 ms Atrial fibrillation Abnormal ECG No previous ECGs available Confirmed by KRISTEN GARSIA, ROBERTO ([id number]) on 11/02/2021 8:55:32 PM Referred By: LEONARDO MACK Electronically Signed By:ROBERTO PINTO MD Transcribed By: MUS Signed By Roberto Pinto MD 0 11/02/212054 Normal [facility] Vital Signs Date Time Vital Sign Value Performing Clinician Facility 12-15-2023 15:16-0400 Body height 180.[address] [facility] 12-15-2023 15:16-0400 Body mass index (BMI) [Ratio] 32.8 kg/m2 [facility] 12-15-2023 15:16-0400 Body weight 106.[address] [facility] 12-15-2023 15:16-0400 Diastolic blood pressure 74 mm[Hg] [facility] 12-15-2023 15:16-0400 Heart rate 85 /min [facility] 12-15-2023 15:16-0400 Respiratory rate 12 /min [facility] 12-15-2023 15:16-0400 Systolic blood pressure 170 mm[Hg] [facility] 12-05-2023 13:33-0400 Body height 180.[address] [facility] 12-05-2023 13:33-0400 Body mass index (BMI) [Ratio] 34 kg/m2 [facility] 12-05-2023 13:33-0400 Body weight 110.[address] [facility] 12-05-2023 13:33-0400 Diastolic blood pressure 88 mm[Hg] [facility] 12-05-2023 13:33-0400 Heart rate 80 /min [facility] 12-05-2023 13:33-0400 Respiratory rate 12 /min [facility] 12-05-2023 13:33-0400 Systolic blood pressure 138 mm[Hg] [facility] 08-13-2023 09:00-0500 Body height 180.34 cm Domingo Ball Other [employer] [facility] [employer] Other 08-13-2023 09:00-0500 Body mass index (BMI) [Ratio] 32.66 kg/m2 Domingo Ball Other [employer] Other 08-13-2023 09:00-0500 Body weight 106.23 kg Domingo Ball Other [employer] Other 08-13-2023 09:00-0500 Diastolic blood pressure 88 mm[Hg] Domingo Ball Other [employer] Other 08-13-2023 09:00-0500 Respiratory rate 12 /min Domingo Ball Other [employer] Other 08-13-2023 09:00-0500 Systolic blood pressure 139 mm[Hg] Domingo Patterson Other [employer] Other Encounters Encounter Date Encounter Type Care Provider Facility Start: 12-22-2023 End: 12-22-2023 ambulatory RUI B APLING Not Available Start: 12-15-2023 End: 12-15-2023 ambulatory [facility] Work Phone: Start: 12-15-2023 End: 12-15-2023 Patient encounter procedure [facility] [employer] [facility] Work Phone: Start: 12-12-2023 ambulatory [facility] Work Phone: Start: 12-12-2023 Non-patient / Non-visit [facility] Physician [facility] [employer] Work Phone: Start: 12-10-2023 ambulatory [facility] Work Phone: Start: 12-10-2023 Non-patient / Non-visit [facility] Phys[facility] [employer] Work Phone: Start: 12-05-2023 End: 12-05-2023 ambulatory [facility] Work Phone: Start: 12-05-2023 End: 12-05-2023 Patient encounter procedure [facility] Physician [facility] [employer] [facility] Work Phone: Start: 09-30-2023 End: 09-30-2023 ambulatory Domingo Ball Other [employer] Other Start: 09-30-2023 Telephone encounter Domingo DELGADO [facility] Start: 08-21-2023 End: 08-21-2023 ambulatory WILEY ABAD Not Available Start: 08-15-2023 End: 08-15-2023 ambulatory Domingo Patterson Other [employer] Other Start: 08-15-2023 Telephone encounter Domingo DELGADO [facility] Start: 08-13-2023 End: 08-13-2023 ambulatory Domingo Patterson Other [employer] Other Start: 08-13-2023 Patient encounter procedure Domingo Patterson [facility] Start: 07-29-2023 End: 07-29-2023 ambulatory Domingo Patterson Other [employer] Other Start: 07-29-2023 Telephone encounter Domingo DELGADO [facility] Start: 02-18-2023 End: 02-18-2023 ambulatory Domingo Patterson Other [employer] Other Start: 02-18-2023 Telephone encounter Domingo DELGADO [facility] Start: 12-30-2022 End: 01-29-2023 ambulatory SHAIKH Reilly MORRELL Facility:[facility] Start: 12-03-2022 Office outpatient vi sit 15 minutes Domingo Patterson [facility] Start: 12-03-2022 End: 12-04-[address] [facility] [employer] Other Start: 12-03-2022 End: 12-03-2022 Patient encounter procedure Ilir Mack Jr. [facility] Start: 12-02-2022 End: 12-27-2022 ambulatory SHAIKH Reilly MORRELL Facility:[facility] Start: 10-30-2022 End: 03-31-[address] DOMINGO PATTERSON Facility:[facility] Start: 10-02-2022 End: 10-30-2022 ambulatory SHAIKH Reilly MORRELL Facility:[facility] Start: 09-02-2022 End: 10-02-2022 ambulatory SHAIKH Reilly MORRELL Facility:[facility] Start: 08-13-2022 End: 08-13-2022 ambulatory MYA ODEN Facility:[facility] Start: 08-01-2022 End: 09-01-2022 ambulatory SHAIKH Reilly MORRELL Facility:[facility] Start: 07-08-2022 End: 07-08-2022 ambulatory JOAQUÍN A CLAIRE Facility:[facility] Start: 07-05-2022 End: 07-06-[address] DOMINGO PATTERSON Facility:[facility] Start: 07-02-2022 End: 07-31-[address] DOMINGO PATTERSON Facility:[facility] Start: 06-02-2022 End: 07-01-[address] DOMINGO PATTERSON Facility:[facility] Start: 05-02-2022 End: 06-01-[address] DOMINGO PATTERSON Facility:[facility] Start: 04-01-2022 End: 05-01-[address] DOMINGO PATTERSON Facility:[facility] Start: 03-01-2022 End: 03-29-2022 ambulatory SHAIKH Reilly MORRELL Facility:[facility] Start: 02-19-2022 ambulatory Sukhjinder Acevedo ty:[employer] [place] Start: 11-27-2021 End: 11-27-2021 Patient encounter procedure Ilir Mack Jr. [facility] Start: 11-07-2021 End: 11-07-2021 ambulatory Domingo Patterson Facility:[facility] Start: 11-05-2021 End: 11-05-2021 ambulatory Ilir Mack Jr Facility:[facility] Start: 11-02-2021 End: 11-02-2021 ambulatory Domingo Patterson Facility:[facility] Start: 09-20-2021 Adult health examination Domingo Patterson Other [employer] Other Procedures Date Procedure Procedure Detail Performing Clinician Start: 11-07-2021 Transrectal biopsy o f prostate using ultrasound guidance Ilir Mack Jr. Comment on above: MRI fusion bx Start: 06-21-2016 Screening for malign ant neoplasm of colon Domingo Patterson Other Start: 06-21-2016 Screening for malign ant neoplasm of prostate Domingo Patterson Other Start: 07-15-2015 Screening for malign ant neoplasm of colon Domingo Patterson Other Start: 11-16-2014 cysto/bladder fulgeration Ilir Mack Jr. Start: 07-08-2014 Cystoscopy Ilir Julia iqbal Start: 05-09-2010 Cysto/ TURP Ilir iqbal Jr. Start: 04-24-2010 Cystoscopy [address] [facility] Start: 04-20-2010 Urodynamic studies Jyothi aMck Jr. Start: 04-06-2010 TRUS/BX Ilir Julia iqbal Start: 09-01-2001 TRUS/BX Ilir [facility] Coronary artery bypa ss graft operation planned Ilir Mack Jr. Depression screening Vern Patterson Other Plan of Treatment Date Care Activity Detail Author Start: 12-12-2023 Patient referral [facility] Work Phone: Start: 12-10-2023 Patient referral [facility] Work Phone: Patient referral [facility] Work Phone: Immunizations Immunization Date Immunization Notes Care Provider Ashish cervantes 06-09-2023 influenza virus vaccine, unspecified formulation [facility] 06-09-2023 influenza, high dose seasonal, preservative-free Domingo Patterson Other [employer] Other 06-24-2022 influenza virus vaccine, split virus (incl. purified surface antigen) Domingo Patterson Other [facility] [employer] Other 06-24-2022 influenza virus vaccine, unspecified formulation [facility] 07-09-2021 influenza virus vaccine, split virus (incl. purified surface antigen) Domingo Patterson Other [facility] [employer] Other 07-09-2021 influenza virus vaccine, unspecified formulation [facility] 06-10-2021 COVID-19 mRNA, Comirnaty (Pfizer) [facility] 06-03-2021 SARS-CoV-2 (COVID-19 ) Ad26 vaccine, recombinant Ilir Mack Jr. [facility] 11-10-2020 SARS-CoV-2 (COVID-19 ) Ad26 vaccine, recombinant Ilir Mack Jr. [facility] 10-27-2020 COVID-19 mRNA, Comirnaty (Pfizer) [facility] 10-13-2020 SARS-CoV-2 (COVID-19 ) Ad26 vaccine, recombinant Ilir Mack Jr. [facility] 10-06-2020 COVID-19 mRNA, Comirnaty (Pfizer) [facility] 06-06-2020 influenza virus vaccine, split virus (incl. purified surface antigen) Domingo Patterson Other [facility] [employer] Other 06-06-2020 influenza virus vaccine, unspecified formulation [facility] 06-04-2019 influenza virus vaccine, split virus (incl. purified surface antigen) Domingo Patterson Other [facility] [employer] Other 06-04-2019 influenza virus vaccine, unspecified formulation [facility] 06-12-2018 influenza virus vaccine, split virus (incl. purified surface antigen) Domingo Patterson Other [facility] [employer] Other 06-12-2018 influenza virus vaccine, unspecified formulation [facility] 06-30-2017 influenza virus vaccine, split virus (incl. purified surface antigen) Domingo Patterson Other [facility] [employer] Other 06-30-2017 influenza virus vaccine, unspecified formulation [facility] 06-27-2016 influenza virus vaccine, split virus (incl. purified surface antigen) Domingo Patterson Other [facility] [employer] Other 06-27-2016 influenza virus vaccine, unspecified formulation [facility] 08-21-2015 pneumococcal conjuga te vaccine, 13 valent Domingo Patterson Other [facility] 06-22-2015 tetanus and diphther ia toxoids, adsorbed, preservative free, for adult use (5 Lf of tetanus toxoid and 2 Lf of diphtheria toxoid) Domingo Leonardo Other [facility] 07-08-2014 influenza virus vaccine, split virus (incl. purified surface antigen) Domingo Leonardo Other [facility] [employer] Other 07-08-2014 influenza virus vaccine, unspecified formulation [facility] 07-08-2014 pneumococcal Conjuga te, unspecified formulation; Translations: [Need for prophylactic vaccination against Streptococcus pneumoniae (pneumococcus)] Domingo Leonardo Other [facility] [employer] Other 07-08-2014 pneumococcal polysaccharide vaccine, 23 valent Domingo Patterson Other [facility] Payers Date Payer Category Payer Self-pay 1958 Medicare [id number] 1945 Unknown [id number] 2.16.8 [id number] 1945 Unknown [id number] 2.16.8 40.1.286621.3.579.2.727 1945 Unknown [id number] 2.16.84 0.1.782947.3.579.2.593 1945 Unknown [id number] 2.16.84 0.1.206850.3.579.2.593 1945 Unknown [id number] 2.16.84 0.1.082803.3.579.2.593 1945 Unknown [id number] 2.16.84 0.1.235574.3.579.2.593 1945 Unknown [id number] 2.16.84 0.1.565768.3.579.2.593 1945 Unknown [id number] 2.16.84 0.1.085881.3.579.2.593 1945 Unknown [id number] 2.16.84 0.1.204336.3.579.2.593 1945 Unknown [id number] 2.16.84 0.1.255172.3.579.2.593 1945 Unknown [id number] 2.16.84 0.1.332419.3.579.2.593 1945 Unknown [id number] 2.16.84 0.1.464629.3.579.2.593 1945 Unknown [id number] 2.16.84 0.1.439063.3.579.2.593 1945 Unknown [id number] 2.16.84 0.1.319416.3.579.2.593 1945 Unknown [id number] 2.16.84 0.1.355840.3.579.2.1259 1945 Unknown [id number] 2.16.840 .1.888792.3.579.2.1259 Unknown [id number] 2.16.8 40.1.165475.3.579.2.531 Unknown [id number] 2.16.8 40.1.474244.3.579.2.531 Unknown [id number] 2.16.8 40.1.513972.3.579.2.531 Social History Date Type Detail Facility Start: 08-14-2021 End: 11-07-2021 Tobacco smoking status Ex-smoker (finding) [facility] Sex Assigned At Male [facility] Start: 1945 Sex Assigned At Male [facility] Clinical Notes 11-27-2021 to 08-13-2023 Note Date & Type Note Facility 08-13-2023 Evaluation note Encounter Date Diagnosis Assessment Notes Aug, Medicare annual wellness visit, subsequent (ICD-10 - Z00.00) Personalized health advice was given to the beneficiary including a written plan for screenings discussed and provided. Advanced care planning reviewed and/or information given as requested. Additional counseling was provided here today in regards to, [ ]. The above visit was performed by [ ], under direct supervision of [ ]. Document reviewed and amended by provider signed below. Aug, ASHD (arteriosclerotic heart disease) (ICD-10 - I25.10) This patient is stable without activity related CP, dyspnea or lightheadedness. They are instructed to continue exercise and AHA diet plan. Continue secondary prevention measures. Aug, Permanent atrial fibrillation (ICD-10 - I48.21) This patient is in NSR or rate controlled. This patient is anticoagulated to prevent thromboembolic events. They are maintaining regular scheduled appts with their lay out carpenter. Aug, Hypercholesteremia (ICD-10 - E78.00) Instructed on diet and exercise with continued statin therapy.Discussed the beneficial effects of lowering cholesterol in reducing the risk for cerebrovascular and cardiovascular disease. Aug, CHRISTINE (generalized anxiety disorder) (ICD-10 - F41.1) Healthy diet and exercise. Aug, Warfarin anticoagulation (ICD-10 - Z79.01) No bleeding complications. Continue w/ goal INR 2-3. f/u Coumadin clinic Aug, Screening PSA (prostate specific antigen) (ICD-10 - Z12.5) Yearly PSA - hx of elevate PSA - s/p TRUS/Bx and TURP w/o dx of malignancy Aug, High risk medication use (ICD-10 - Z79.899) Check labs: CBC [facility] Other 04-04-2023 Evaluation note* Encounter Date Diagnosis Assessment Notes Treatment Notes Treatment Clinical Notes Nov, COVID (ICD-10 - U07.1) Aware of quarantine guidelines. Self isolate at home. - Cannot work - avoid contact with others - avoid pets - wipe counters, door knobs if touched - if can't avoid leaving home, must wear mask to protect others - need to stay isolated for 10 days from onset of symptoms or contact with COVID positive individual - to discontinue isolation must be 10 days AND must be without fever for 24 hours AND symptoms must be improving. Always wear a mask in public places. Nov, ASHD (arteriosclerotic heart disease) (ICD-10 - I25.10) This patient is stable without activity related CP, dyspnea or lightheadedness. They are instructed to continue exercise and AHA diet plan. Nov, Permanent atrial fibrillation (ICD-10 - I48.21) Instructed to notify Coumadin clinic as Warfarin can be affected by Paxlovid [facility] Other 12-13-2022 NoteHNO ID: [id number] Author: Mya Oden V, MD Service: ? Author Type: Physician Type: Progress Notes Filed: 08/13/2022 12:32 PM Note Text: The documentation for this note was completed by Lisa Baez, COA acting as a scribe for Mya ODEN MD. 08/13/2022 12:27 PM. ASSESSMENT / PLAN: 1. Posterior capsular opacity Both eyes -YAG capsulotomy Both eyes today (surgical care only; -54 modifier) -Patient educated on posterior capsular opacity following cataract surgery. The risks, benefits, alternatives, personnel, and possible complications related to yttrium aluminum garnet (YAG) capsulotomy discussed with patient. Explained that risks include but are not limited to: increase in intraocular pressure, retinal tears/detachment, dislocation of the intraocular lens, and/or need for further procedures. Patient expresses understanding and elects to proceed with YAG capsulotomy of Both eyes performed by Dr. Oden. Informed consent form signed by physician and patient. Literature regarding signs and symptoms of retinal detachment offered. -The patient was offered a surgery/procedure at a [facility] facility. The surgeon/proceduralist and patient have discussed in detail the risk of exposure to and/or potential harm posed by the COVID-19 virus with having a surgery/procedure at this time versus the risk of delaying the surgery/procedure. It is not possible to know either the risk of delaying the surgery or procedure or chance of getting an infection with perfect accuracy, but a joint decision was made between the patient and the surgeon/proceduralist to proceed at this time with the scheduled surgery/procedure as indicated on the consent form. -F/U [address] Coelho ([facility]) The documentation recorded by the scribe accurately reflects the service I personally performed and the decisions made by me. I have confirmed and edited as necessary the relevant ophthalmic history, ROS, and the exam findings as obtained by others. I have seen and examined David Jama. I also have reviewed and agree with the assessment and plan as stated above and agree with all of its relevant components. Mya ODEN MD August 13, 2022 12:27 [facility]12-13-2022 NoteHNO ID: [id number] Author: Chon Andersen OD Service: ? Author Type: COMMERCIAL COUNSEL Type: Progress Notes Filed: 08/13/2022 12:32 PM Note Text: ASSESSMENT/PLAN: 1. 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 Pseudophakia of both eyes - ICD9: V43.1, ICD10: Z96.1 Dr Mya Oden YAG evaluation today 3. 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 I have seen and examined this patient. I also have reviewed and agree with the assessment and plan as stated above and agree with all of its relevant components. Chon Andersen, OD August 13, 2022 12:05 [facility]11-07-2022 NoteHNO ID: [id number] Author: Joaquín Saul MD Service: ? Author Type: Physician Type: Progress Notes Filed: 07/08/2022 2:54 PM Note Text: Referred by Dr. 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 I have seen and examined this patient. I have discussed the case and the management of this patient's care with the Resident, if applicable. I also have reviewed and agree with the assessment and plan as stated above and agree with all of its relevant components. Joaquín Saul MD Vitreoretinal Surgery AND Ocular Inflammatory Diseases [facility]03-29-2022 Hospital Discharge instructions Patient Education 11/27/2021 12:13:58 Benign Prostatic Hyperplasia Benign Prostatic Hyperplasia Benign prostatic hyperplasia (BPH) is an enlarged prostate gland that is caused by the normal agingprocess and not by cancer. The prostate is a walnut-sized gland that is involved in the production of semen. It is located in front of the rectum and below the bladder. The bladder stores urine and the urethra is the tube that carries the urine out of the body. The prostate may get bigger as a man gets older. An enlarged prostate can press on the urethra. This can make it harder to pass urine. The build-up of urine in the bladder can cause infection. Back pressure and infection may progress to bladder damage and kidney (renal) failure. What are the causes? This condition is part of a normal aging process. However, not all men develop problems from this condition. If the prostate enlarges away from the urethra, urine flow will not be blocked. If it enlarges toward the urethra and compresses it, there will be problems passing urine. What increases the risk? This condition is more likely to develop in men over the age of 50 years. What are the signs or symptoms? Symptoms of this condition include: Getting up often during the night to urinate. Needing to urinate frequently during the day. Difficulty starting urine flow. Decrease in size and strength of your urine stream. Leaking (dribbling) after urinating. Inability to pass urine. This needs immediate treatment. Inability to completely empty your bladder. Pain when you pass urine. This is more common if there is also an infection. Urinary tract infection (UTI). How is this diagnosed? This condition is diagnosed based on your medical history, a physical exam, and your symptoms. Tests will also be done, such as: A post-void bladder scan. This measures any amount of urine that may remain in your bladder after you finish urinating. A digital rectal exam. In a rectal exam, your health care provider checks your prostate by putting a lubricated, gloved finger into your rectum to feel the back of your prostate gland. This exam detects the size of your gland and any abnormal lumps or growths. An exam of your urine (urinalysis). A prostate specific antigen (PSA) screening. This is a blood test used to screen for prostate cancer. An ultrasound. This test uses sound waves to electronically produce a picture of your prostate gland. Your health care provider may refer you to a specialist in kidney and prostate diseases (urologist). How is this treated? Once symptoms begin, your health care provider will monitor your condition (active surveillance or watchful waiting). Treatment for this condition will depend on the severity of your condition. Treatment may include: Observation and yearly exams. This may be the only treatment needed if your condition and symptoms are mild. Medicines to relieve your symptoms, including: ?Medicines to shrink the prostate. ?Medicines to relax the muscle of the prostate. Surgery in severe cases. Surgery may include: ?Prostatectomy. In this procedure, the prostate tissue is removed completely through an open incision or with a laparoscope or robotics. ?Transurethral resection of the prostate (TURP). In this procedure, a tool is inserted through the opening at the tip of the penis (urethra). It is used to cut away tissue of the inner core of the prostate. The pieces are removed through the same opening of the penis. This removes the blockage. ?Transurethral incision (TUIP). In this procedure, small cuts are made in the prostate. This lessens the prostate's pressure on the urethra. ?Transurethral microwave thermotherapy (TUMT). This procedure uses microwaves to create heat. The heat destroys and removes a small amount of prostate tissue. ?Transurethral needle ablation (TUNA). This procedure uses radio frequencies to destroy and remove a small amount of prostate tissue. ?Interstitial laser coagulation (ILC). This procedure uses a laser to destroy and remove a small amount of prostate tissue. ?Transurethral electrovaporization (TUVP). This procedure uses electrodes to destroy and remove a small amount of prostate tissue. ?Prostatic urethral lift. This procedure inserts an implant to push the lobes of the prostate away from the urethra. Follow these instructions at home: Take eida-qvw-vlmpdka and prescription medicines only as told by your health care provider. Monitor your symptoms for any changes. Contact your health care provider with any changes. Avoid drinking large amounts of liquid before going to bed or out in public. Avoid or reduce how much caffeine or alcohol you drink. Give yourself time when you urinate. Keep all follow-up visits as told by your health care provider. This is important. Contact a health care provider if: You have unexplained back pain. Your symptoms do not get better with treatment. You develop side effects from the medicine you are taking. Your urine becomes very dark or has a bad smell. Your lower abdomen becomes distended and you have trouble passing your urine. Get help right away if: You have a fever or chills. You suddenly cannot urinate. You feel lightheaded, or very dizzy, or you faint. There are large amounts of blood or clots in the urine. Your urinary problems become hard to manage. You develop moderate to severe low back or flank pain. The flank is the side of your body between the ribs and the hip. These symptoms may represent a serious problem that is an emergency. Do not wait to see if the symptoms will go away. Get medical help right away. Call your local emergency services (911 in the [place] Do not drive yourself to the hospital. Summary Benign prostatic hyperplasia (BPH) is an enlarged prostate that is caused by the normal aging process and not by cancer. An enlarged prostate can press on the urethra. This can make it hard to pass urine. This condition is part of a normal aging process and is more likely to develop in men over the age of 50 years. Get help right away if you suddenly cannot urinate. This information is not intended to replace advice given to you by your health care provider. Make sure you discuss any questions you have with your health care provider. Document Released: 08/18/2006 Document Revised: 07/13/2019 Document Reviewed: 09/22/2017 [employer] Patient Education [employer] Follow Up Care 11/05/2021 16:15:55 With:Frederick Eckert MD, Ilir Leach, URO Address: When:1 year Comments:w/psa [facility] evaluation + Plan note Future Appointments Appointment Date:12/03/2022 08:00:00 AM Scheduled Provider:Ilir Mack Jr., MD Location:[facility] Appointment Type:URO Office Visit Diagnostic Tests Pending * PSA Total 11/27/21 [facility] evalfqetqh noteNo InformationNort Appy Couple Other Evaluation note* Diagnosis Onset Date Resolution Status Primary osteoarthritis of left knee noneactive Left knee pain noneactive Anticoagulated on Coumadin n oneactive [facility] Work Phone: Histvvq general Narrative - Reported* Type Description Date Medical History hypertension Medical History BPH Surgical History open heart surgery 2008 Surgical History prostate surgery Clip Other History general Narrative - Reported* Type Description Date Medical History hypertension Medical History BPH Surgical History open heart surgery 2007 Surgical History prostate surgery Hospitalization History see surgical hx Clip Other Hospital course Narrative No data available for this section [facility] Hospital Discharge instructions No data available for this section [facility] Hospital Discharge instructionsAmbulatory Orders* Referral to Orthopedic Surgery Location: None Selected [facility] Work Phone: Progress note No data available for this section [facility] Summary Purpose Family History No Family History Records Found Relationship Condition Age at Onset Recorded Date/T [place] Not Specified Cerebrovascular accident (CVA) Unknown father Cerebrovascular accident (CVA) Unknown brother Carotid artery disease Unknown Advance Directives No Advanced Directives Records Found Advance Directive Response Recorded Date/ Time Advance Directives No August 10:49am Chief Complaint and Reason for Visit Chief Complaint Pain in Knee Reason for Visit Primary osteoarthrit is of left knee Left knee pain Anticoagulated on Coumadin Chief Complaint Pain in Knee increased BP Reason for Visit Primary osteoarthrit is of left knee Left knee pain Anticoagulated on Coumadin Additional Source Comments (unrecognized sect ion and content) No Status Records FoundNo Status Records FoundNo Status Records FoundNo Status Records FoundNo Status Records Found INFORMATION SOURCE (unrecogn ized section and content) DATE CREATED AUTHOR 08/14/2022 [facility] DATE CREATED AUTHOR AUTHOR'S ORGANIZ ATION 10/05/2022 [facility] DATE CREATED AUTHOR AUTHOR'S ORGANIZ ATION 12/04/2022 [facility] DATE CREATED AUTHOR AUTHOR'S ORGANIZ ATION 02/07/2023 [facility] DATE CREATED AUTHOR AUTHOR'S ORGANIZ ATION 12/22/2023 [facility] EPIC REASON FOR VISIT (unrecogniz ed section and content) [phone] COVID [phone] COVID +RefillNo InformationWellnessLab resultsMedication Question Patient Care team informatio n (unrecognized section and content) Team Status: Active Member Role Status Dates Domingo Patterson DO Primary Care Provider Active Team Status: Inactive Member Role Status Dates Domingo Patterson DO Primary Care Provide r, Attending Provider Active Start: December 05, 2023 End: Fannie 5th, 2024 Team Status: Active Member Role Status Dates Domingo Patterson , DO Primary Care Provide r, Attending Provider Active Start: December 10, 2023 Team Status: Active Member Role Status Dates Domingo Patterson , DO Primary Care Provide r, Attending Provider Active Start: December 12, 2023 Team Status: Inactive Member Role Status Dates Domingo Patterson , DO Primary Care Provide r, Attending Provider Active Start: December 15, 2023 End: December 15, 2023 Goals (unrecognized section and content) Goals may be documented in a n alternate section FOR RECORDS PERTAINING TO PATIENTS WHO ARE OR HAVE BEEN ENROLLED IN A CHEMICAL DEPENDENCY/SUBSTANCEABUSE PROGRAM, SOME INFORMATION MAY BE OMITTED. This clinical summary was aggregated from multiple sources. Caution should be exercised in using it in the provision of clinical care. This summary normalizes information from multiple sources, and as a consequence, information in this document may materially change the coding, format and clinical context of patient data. In addition, data may be omitted in some cases. CLINICAL DECISIONS SHOULD BE BASED ON THE PRIMARY CLINICAL RECORDS. [facility]. provides no warranty or guarantee of the accuracy or completeness of information in this document.
[2024-01-07 10:34] LABS: Alanine Aminotransferase 38 U/L (16-63); Albumin Globulin Ratio 1.1; Albumin Level 3.7 g/dL (3.4-5.0); Alkaline Phosphatase 85 U/L (46-116); Anion Gap 9.3; Aspartate Amino Transferase 29 U/L (15-37); Bilirubin Total 0.8 mg/dL (0.2-1.0); Calcium 9.1 mg/dL (8.5-10.1); Carbon Dioxide 31.4 mmol/L (21.0-32.0); Chloride 104 mmol/L (98-107); Estimated GFR (African America >60 (>=60); Estimated GFR (Non-African Ame >60 (>=60); Globulin 3.3 g/dL; Glucose 100 mg/dL (74-106); Potassium 4.7 mmol/L (3.5-5.1); Sodium 140 mmol/L (136-145); Thyroid Stimulating Hormone 1.839 uIU/mL (0.358-3.740)
[2024-01-07 10:45] LABS: Basophils Absolute Auto 0.1 10^3/uL (0.0-0.1); Basophils Percent Auto 0.8 % (0.2-2.0); Eosinophils Absolute Auto 0.1 10^3/uL (0.0-0.7); Hematocrit 47.3 % (42.0-54.0); Hemoglobin 15.6 g/dL (14.0-18.0); Immature Granulocytes Abs Auto 0.03 10^3/uL (0.00-0.03); Immature Granulocytes Pct Auto 0.4 % (0.0-0.5); Lymphocytes Absolute Auto 1.1 10^3/uL (1.2-3.8); Lymphocytes Percent Auto 15.3 % (20.5-60.0); Mean Corpuscular Hemoglobin 31.6 pg (25.9-34.0); Mean Corpuscular Volume 95.7 fL (80.0-94.0); Mean Platelet Volume 10.3 fL (9.5-13.5); Monocytes Absolute Auto 0.6 10^3/uL (0.3-0.8); Monocytes Percent Auto 7.5 % (1.7-12.0); Neutrophils Absolute Auto 5.5 10^3/uL (1.4-6.5); Platelet Count 172 10^3/uL (150-450); Red Blood Count 4.94 10^6/uL (4.70-6.10); Red Cell Distribution Width 12.4 % (11.0-15.0); White Blood Count 7.3 10^3/uL (4.0-11.0)
== END 2024-01-07 08:25 | disposition home or self-care (01) ==
LOC: NM 08:24
PROVIDERS: PCP Internal Medicine; Visit Provider Internal Medicine
DX: I25.10 Atherosclerotic heart disease of native coronary artery without angina pectoris (principal); I10 Essential (primary) hypertension; I48.91 Unspecified atrial fibrillation; R53.83 Other fatigue; R07.9 Chest pain, unspecified
CPT/HCPCS: 36415; 78452; 80053; 84443; 85025; 93306; A9500

== ENCOUNTER 2024-01-08 11:46 | Outpatient (OUT) | payer MEDICARE, SELFPAY ==
--- OUTSIDE RECORDS SUMMARY | 2024-01-08 12:00 | XMS_ITS | CCD ---
Author Organization [facility] Care Team Providers Care Editor Name Role Phone DOMINGO PATTERSON Primary Care Physician [phone] JOAQUÍN SAUL Attending Unavailable MAURO COELHO Referring [...] Unavailable BALL, DR BURROUGHS Primary Care Unavailable DAYTON, DR LEDA Dennis Consulting Unavailable PETROS, DA SILVA H Attending Unavailable LEONARDO, DR BURROUGHS Primary Care Unavailable FAWWAD, DA SILVA H Admitting Unavailable FAWVALERIED, DA SILVA H Attending Unavailable LEONARDO, DR BURROUGHS Primary Care Unavailable FAWFABIAN, DA SILVA H Admitting Unavailable LEONARDO, DR BURROUGHS Primary Care Unavailable FAWVALERIED, DA SILVA H Admitting Unavailable FAWWAD, DA SILVA H Attending Unavailable RUI DORSEY Attending Unavailable WILEY ABAD Attending Unavailable Allergies Allergy Classification Reported Allergen(s) Allergy Type Date of Onset Reaction(s) Facility (4 sources) atorvastatin Drug Allergy Unknown [facility] Other (1 source) patient allergy list reviewed by nurse or physicia Propensity to adverse reactions 3 Comment:Done [facility] Other Medications Current Medications Medication Drug Class(es) [...] Refill(s) 0 Start Date: 09/30/19 Status: Ordered [place] 3 (7 sources) [place] 3 Active [place]-3 (2 sources) Start: 09-30-2019 [place]-3 Refill (s) 0 Start Date: 09/30/19 Status: [...] Coronary arteriosclerosis; Translations: [Atherosclerotic heart disease of [place] coronary artery without angina pectoris] Onset: 03-23-2019 [...] source) Long-term current use of anticoagulant; Translations: [intermediate card tender (current) use of anticoagulants] Onset: 11-27-2021 Episodic Other aftercare (5 sources) Encounter for therapeutic drug level monitoring; Translations: [ENC THERAPEUTC DRUG LEVL MONITORING] Onset: 12-28-2022 Episodic Other aftercare (6 sources) penitentiary (current) use of anticoagulants; Translations: [Long-term (current) use of anticoagulants] Onset: 01-29-2023 Episodic Other aftercare (1 source) Long-term current use of drug therapy; Translations: [Other intermodal customer service (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] Episodic Other aftercare (3 sources) Anticoagulant effect; Translations: [intermediate card tender (current) use of anticoagulants] Episodic Other aftercare (1 source) Other chcf (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 Episodic Other circulatory disease [...] Provider Letter November 21, 2022 DAVID JAMA [address] [address] DAVID JAMA 1945 Dear Roselia Jama, We [...] prompt attention to this matter. Please call [phone] before end october to reschedule! Sincerely, [facility] [address] [facility], [place] [address] [facility] US CAROTID ART BILon 2 022 [...] by: LEDA MORALES Date: 2022-07-05 17:14 Normal [facility] RAD - CT Reporton 01-30-2022 RAD - CT Report [id number] Normal [facility] Calixto 11-07-2021 L - -------- Specimen: [id number] Received: 11/07/21 Status: RODRIGO Rose Num: [id number] Spec Type: Surgical Subm Dr: Ilir Mack Jr, MD, FACS Tissues: A Prostate - Needle Biopsy (REG[place]) Procedures: HE Stain/2, Gross/Micro L4 -------- Patient Age/Sex Location Account Attending Physician -------- David Jama 76/M [place] [id number] Ilir Mack Jr, MD, FACS -------- SPEC NUM: [id number] RECD: 11/07/21 STATUS: RODRIGO ROSE NUM: [id number] YOVANI: 11/07/21- DR: Ilir Mack Jr, MD, [...] adenocarcinoma. Immunostain control is adequate. CPT Codes 44829, 32134 -------- -------- Specimen: [id number] Received: 11/07/21 Status: RODRIGO [place] Num: [id number] Spec Type: Surgical Subm Dr: Ilir Mack Jr, MD, FACS Tissues: A Prostate - Needle Biopsy ([place]) Procedures: HE Stain/2, Gross/Micro L4 -------- Patient: David Jama [id number] (Continued) -------- Signed (signature on file) Kamari Candelario MD 11/08/21 0545 [facility] Partial Thromboplastin Timeo n 11-07-2021 aPTT Coag (Bld) [Time] 29.9 s Normal 25.1-36.5 [facility] Comment on above: Result Comment: PERF ORMED BY: [place] [address] PATHOLOGIST COLORING CHECKER ERICK AMARO M.D. Performed By: #### P T, PTT #### [facility] [address] [place] [address] Prothrombin Time INRon 11-07 INR Coag (PPP) [Relative time] 1.2 {INR} Normal [facility] Comment on above: Result Comment: INR Therapeutic [...] Performed By: #### P T, PTT #### [facility] [address] [place] [address] PT Coag (PPP) [Time] 13.1 s High 9.0-12.[address] [facility] Comment on above: Performed By: #### P T, PTT #### [address] COVID-19 FRMCon 11-05-2021 SARS-CoV-2 (COVID-19) RNA MAC+probe Ql (Unsp spec) Negative Normal Negative [facility] Comment on above: Order Comment: Healt hcare Worker?: N Result Comment: Testing for SARS-CoV-2 by RT-PCR This test was developed and its performance characteristics determined by [employer]) and validated at the [facility]. This test has not been FDA cleared [...] is terminated or revoked sooner. PERFORMED BY: [place] [address] PATHOLOGIST COLORING CHECKER ERICK AMARO M.D. Performed By: #### C OVID 19 [facility] #### [address] Basic Metabolic Panelon 03-0 Calcium [Mass/Vol] 9.5 mg/dL Normal 8.2-10.2 [facility] Comment on above: Result Comment: PERF ORMED BY: [place] [address] PATHOLOGIST COLORING CHECKER ERICK AMARO M.D. Performed By: #### C BC, BMP #### [address] Chloride [Moles/Vol] 99 mmol/L Normal 95-[address] [facility] Comment on above: Performed By: #### C BC, BMP #### [place] [id number] [facility] CO2 [Moles/Vol] 28.7 mmol/L Normal 22.0-30.0 [facility] Comment on above: Performed By: #### C BC, BMP #### [address] Creatinine [Mass/Vol] 1.23 mg/dL Normal 0.64-1.27 [facility] Comment on above: Performed By: #### C BC, BMP #### [facility] [address] Estimated GFR ( An > 60 Normal [facility] Comment on above: Result Comment: GFR estimated reference range: According to KDOQI guidelines, <60 ml/min/1.73m2 is sufficient to diagnose a patient with chronic kidney disease. Performed By: #### C BC, BMP #### [address] Estimated GFR (Non- Am 57 Normal [facility] Comment on above: Performed By: #### C BC, BMP #### [address] Glucose [Mass/Vol] 83 mg/dL Normal 70-100 [facility] Comment on above: Result Comment: [place] Glucose Reference Range is dependent on time and content of last meal. Glucose of more than 200 mg/dL in a nonstressed, ambulatory subject supports the diagnosis of Diabetes Mellitus. ADA recommended reference range Performed By: #### C BC, BMP #### [address] Potassium [Moles/Vol] 4.7 mmol/L Normal 3.5-5.1 [facility] Comment on above: Performed By: #### C BC, BMP #### [address] Sodium [Moles/Vol] 136 mmol/L Normal 136-146 [facility] Comment on above: Performed By: #### C BC, BMP #### [address] Urea nitrogen [Mass/Vol] 18 mg/dL Normal 9-23 [facility] Comment on above: Performed By: #### C BC, BMP #### [address] Complete Blood Count Auto Di ffon 11-02-2021 Basophils (Bld) [#/Vol] 0.0 10*3/uL Normal 0.0-0.2 [facility] Comment on above: Result Comment: PERF ORMED BY: [place] [address] PATHOLOGIST COLORING CHECKER ERICK AMARO M.D. Performed By: #### C BC, BMP #### [place] [address] [place] Basophils/100 WBC (Bld) 0.7 % Normal . [facility] Comment on above: Performed By: #### C BC, BMP #### [facility] [address] [place] [address] [place] Eosinophils (Bld) [#/Vol] 0.1 10*3/uL Normal 0.0-0.45 [facility] Comment on above: Performed By: #### C BC, BMP #### [facility] [address] [place] [address] [place] Eosinophils/100 WBC (Bld) 1.7 % Normal . [facility] Comment on above: Performed By: #### C BC, BMP #### [address] Erythrocyte distribution width (RBC) [Ratio] 13.1 % Normal 12.0-14.8 [facility] Comment on above: Performed By: #### C BC, BMP #### [address] Hematocrit (Bld) [Volume fraction] 47.8 % Normal 38.8-50.0 [facility] Comment on above: Performed By: #### C BC, BMP #### [address] Hemoglobin (Bld) [Mass/Vol] 16.3 g/dL Normal 13.0-17.0 [facility] Comment on above: Performed By: #### C BC, BMP #### [place] [address] [place] Lymphocytes (Bld) [#/Vol] 1.3 10*3/uL Normal 1.00-4.8 [facility] Comment on above: Performed By: #### C BC, BMP #### [place] [address] [place] Lymphocytes/100 WBC (Bld) 19.6 % Normal . [facility] Comment on above: Performed By: #### C BC, BMP #### [address] MCH (RBC) [Entitic mass] 32.5 pg Normal 27.5-35.2 [facility] Comment on above: Performed By: #### C BC, BMP #### [facility] [address] MCV (RBC) [Entitic vol] 95.0 fL Normal 83.5-101 [facility] Comment on above: Performed By: #### C BC, BMP #### [facility] [address] Mean Corpuscular HGB Conc 34.2 g/dL Normal 32.5-35.6 [facility] Comment on above: Performed By: #### C BC, BMP #### [facility] [address] Monocytes (Bld) [#/Vol] 0.7 10*3/uL Normal 0.0-0.8 [facility] Comment on above: Performed By: #### C BC, BMP #### [facility] [address] Monocytes/100 WBC (Bld) 10.0 % Normal . [facility] Comment on above: Performed By: #### C BC, BMP #### [facility] [address] [place] [address] [place] Neutrophils (Bld) [#/Vol] 4.4 10*3/uL Normal 1.8-7.7 [facility] Comment on above: Performed By: #### C BC, BMP #### [facility] [address] [place] [address] [place] Neutrophils/100 WBC (Bld) 68.0 % Normal . [facility] Comment on above: Performed By: #### C BC, BMP #### [facility] [address] [place] [address] [place] Nucleated RBC/100 WBC (Bld) [Ratio] 0.2 % Normal 0-0.5 [facility] Comment on above: Performed By: #### C BC, BMP #### [facility] [address] Platelet mean volume (Bld) [Entitic vol] 8.9 fL Normal 6.6-10.1 [facility] Comment on above: Performed By: #### C BC, BMP #### [facility] [address] Platelets (Bld) [#/Vol] 173 10*3/uL Normal 150-450 [facility] Comment on above: Performed By: #### C BC, BMP #### [facility] [address] RBC (Bld) [#/Vol] 5.03 10*6/uL Normal 3.90-5.60 [facility] Comment on above: Performed By: #### C BC, BMP #### [facility] [address] [place] [id number] [facility] WBC (Bld) [#/Vol] 6.5 10*3/uL Normal 4.5-11.0 [facility] Comment on above: Performed By: #### C BC, BMP #### [facility] [address] ECG 12 lead ECGon 11-02-2021 ECG 12 lead ECG [facility] [place] [address] [place] [address] Electrocardiograph Report Signed Patient: David Jama MR#: [id number] : 1945 Acct:[id number] Age/Sex: 76 / M ADM Date: 11/02/21 Loc: Room: Type: [facility] Attending Dr: Ilir Mack Jr, MD [...] By Roberto Pinto MD 0 11/02/212054 Normal [facility] Vital Signs Date Time Vital Sign Value Performing Clinician Facility 12-15-2023 15:16-0400 Body height 180.34 cm [facility] 12-15-2023 15:16-0400 Body mass index (BMI) [Ratio] 32.8 kg/m2 [facility] 12-15-2023 15:16-0400 Body weight 106.7 kg [facility] 12-15-2023 15:16-0400 Diastolic blood pressure 74 mm[Hg] [facility] 12-15-2023 15:16-0400 Heart rate 85 /min [facility] 12-15-2023 15:16-0400 Respiratory rate 12 /min [facility] 12-15-2023 15:16-0400 Systolic blood pressure 170 mm[Hg] [facility] 12-05-2023 13:33-0400 Body height 180.34 cm [facility] 12-05-2023 13:33-0400 Body mass index (BMI) [Ratio] 34 kg/m2 [facility] 12-05-2023 13:33-0400 Body weight 110.67 kg [facility] 12-05-2023 13:33-0400 Diastolic blood pressure 88 mm[Hg] [facility] 12-05-2023 13:33-0400 Heart rate 80 /min [facility] 12-05-2023 13:33-0400 Respiratory rate 12 /min [facility] 12-05-2023 13:33-0400 Systolic blood pressure 138 mm[Hg] [facility] 08-13-2023 09:00-0500 Body height 180.34 cm Domingo Ball Other [employer] [facility] [employer] Other 08-13-2023 09:00-0500 Body mass index (BMI) [Ratio] 32.66 kg/m2 Domingo Ball Other [facility] Other 08-13-2023 09:00-0500 Body weight 106.23 kg Domingo Ball Other [facility] Other 08-13-2023 09:00-0500 Diastolic blood pressure 88 mm[Hg] Domingo Ball Other [facility] Other 08-13-2023 09:00-0500 Respiratory rate 12 /min Domingo Ball Other [facility] Other 08-13-2023 09:00-0500 Systolic blood pressure 139 mm[Hg] Domingo Patterson Other [facility] Other Encounters Encounter Date Encounter Type Care Provider Facility Start: 12-22-2023 End: 12-22-2023 ambulatory RUI B APLING Not Available Start: 12-15-2023 End: 12-15-2023 ambulatory [facility] Work Phone: Start: 12-15-2023 End: 12-15-2023 Patient encounter procedure [facility] Physician [facility] Work Phone: Start: 12-12-2023 ambulatory [facility] Work Phone: Start: 12-12-2023 Non-patient / Non-visit [facility] Physician [facility] Work Phone: Start: 12-10-2023 ambulatory [facility] Work Phone: Start: 12-10-2023 Non-patient / Non-visit [facility] Physician [facility] Work Phone: Start: 12-05-2023 End: 12-05-2023 ambulatory [facility] Work Phone: Start: 12-05-2023 End: 12-05-2023 Patient encounter procedure [facility] Physician [facility] Work Phone: Start: 09-30-2023 End: 09-30-2023 ambulatory Domingo Ball Other [facility] Other Start: 09-30-2023 Telephone encounter Domingo DELGADO G [facility] Start: 08-21-2023 End: 08-21-2023 ambulatory WILEY ABAD Not Available Start: 08-15-2023 End: 08-15-2023 ambulatory Domingo Patterson Other [facility] Other Start: 08-15-2023 Telephone encounter Domingo DELGADO G [facility] Start: 08-13-2023 End: 08-13-2023 ambulatory Domingo Patterson Other [facility] Other Start: 08-13-2023 Patient encounter procedure Domingo Patterson [facility] Start: 07-29-2023 End: 07-29-2023 ambulatory Domingo Patterson Other [facility] Other Start: 07-29-2023 Telephone encounter Domingo DELGADO G [facility] Start: 02-18-2023 End: 02-18-2023 ambulatory Domingo Patterson Other [facility] Other Start: 02-18-2023 Telephone encounter Domingo DELGADO G [facility] Start: 12-30-2022 End: 01-29-2023 ambulatory SHAIKH Reilly MORRELL Facility:[facility] Start: 12-03-2022 Office outpatient vi sit 15 minutes Domingo Patterson [facility] Start: 12-03-2022 End: 12-04-2022 ambulatory Sukhjinder MONTEMAYOR [facility] [employer] Other Start: 12-03-2022 End: 12-03-2022 Patient encounter procedure Ilir Mack Jr. [facility] Start: 12-02-2022 End: 12-27-2022 ambulatory SHAIKH Reilly MORRELL Facility:[facility] Start: 10-30-2022 End: 03-31-[address] DOMINGO PATTERSON Facility:[facility] Start: 10-02-2022 End: 10-30-2022 ambulatory SHAIKH Reilly MORRELL Facility:[facility] Start: 09-02-2022 End: 10-02-2022 ambulatory SHAIKH Reilly MORRELL Facility:[facility] Start: 08-13-2022 End: 08-13-2022 ambulatory MYA ODEN Facility:[facility] Start: 08-01-2022 End: 09-01-2022 ambulatory SHAIKH Reilly MORRELL Facility:[facility] Start: 07-08-2022 End: 07-08-2022 ambulatory JOAQUÍN A CLAIRE Facility:[facility] Start: 07-05-2022 End: 07-06-[address] DOMINGO PATTERSON Facility:[facility] Start: 07-02-2022 End: 07-31-[address] DOMINGO PATTERSON Facility:[facility] Start: 06-02-2022 End: 07-01-[address] DOMINGO PATTERSON Facility:[facility] Start: 05-02-2022 End: 06-01-[address] DOMINGO PATTERSON Facility:[facility] Start: 04-01-2022 End: 05-01-[address] DOMINGO PATTERSON Facility:[facility] Start: 03-01-2022 End: 03-29-2022 ambulatory SHAIKH Reilly MORRELL Facility:[facility] Start: 02-19-2022 ambulatory Sukhjinder Acevedo ty:[facility] [place] Start: 11-27-2021 End: 11-27-2021 Patient encounter procedure Ilir Mack Jr. [facility] Start: 11-07-2021 End: 11-07-2021 ambulatory Domingo Patterson Facility:[facility] Start: 11-05-2021 End: 11-05-2021 ambulatory Ilir Mack Jr Facility:[facility] Start: 11-02-2021 End: 11-02-2021 ambulatory Domingo Patterson Facility:[facility] Start: 09-20-2021 Adult health examination Domingo Patterson Other [facility] Other Procedures Date Procedure Procedure Detail Performing [...] Ilir iqbal Jr. Start: 04-24-2010 Cystoscopy Ilir [facility] [place] Start: 04-20-2010 Urodynamic studies Jyothi Mack Jr. Start: 04-06-2010 TRUS/BX Ilir Julia iqbal Start: 09-01-2001 TRUS/BX Ilir [facility] [place] Coronary artery bypa ss graft operation planned Ilir Mack Jr. Depression screening Vern Patterson Other Plan of Treatment Date Care Activity Detail Author Start: 12-12-2023 Patient referral [facility] Work Phone: Start: 12-10-2023 Patient referral [facility] Work Phone: Patient referral [facility] Work Phone: Immunizations Immunization Date Immunization Notes Care Provider Ashish cervantes 06-09-2023 influenza virus vaccine, unspecified formulation [facility] 06-09-2023 influenza, high dose seasonal, preservative-free Domingo Patterson Other [facility] Other 06-24-2022 influenza virus vaccine, split virus (incl. purified surface antigen) Domingo Patterson Other [facility] [employer] Other 06-24-2022 influenza virus vaccine, unspecified formulation [facility] 07-09-2021 influenza virus vaccine, split virus (incl. purified surface antigen) Domingo Patterson Other [facility] [employer] Other 07-09-2021 influenza virus vaccine, unspecified formulation [facility] 06-10-2021 COVID-19 mRNA, Comirnaty (Pfizer) [facility] 06-03-2021 SARS-CoV-2 (COVID-19 ) Ad26 vaccine, recombinant Ilir Mack Jr. [facility] 11-10-2020 SARS-CoV-2 (COVID-19 ) Ad26 vaccine, recombinant Ilir Mack Jr. [facility] 10-27-2020 COVID-19 mRNA, Comirnaty (Pfizer) [facility] 10-13-2020 SARS-CoV-2 (COVID-19 ) Ad26 vaccine, recombinant Ilir Mack Jr. [facility] 10-06-2020 COVID-19 mRNA, Comirnaty (Pfizer) [facility] 06-06-2020 influenza virus vaccine, split virus (incl. purified surface antigen) Domingo Patterson Other [facility] [employer] Other 06-06-2020 influenza virus vaccine, unspecified formulation [facility] 06-04-2019 influenza virus vaccine, split virus (incl. purified surface antigen) Domingo Patterson Other [facility] [employer] Other 06-04-2019 influenza virus vaccine, unspecified formulation [facility] 06-12-2018 influenza virus vaccine, split virus (incl. purified surface antigen) Domingo Patterson Other [facility] [employer] Other 06-12-2018 influenza virus vaccine, unspecified formulation [facility] 06-30-2017 influenza virus vaccine, split virus (incl. purified surface antigen) Domingo Patterson Other [facility] [employer] Other 06-30-2017 influenza virus vaccine, unspecified formulation [facility] 06-27-2016 influenza virus vaccine, split virus (incl. purified surface antigen) Domingo Patterson Other [facility] [employer] Other 06-27-2016 influenza virus vaccine, unspecified formulation [facility] 08-21-2015 pneumococcal conjuga te vaccine, 13 valent Domingo Patterson Other [facility] 06-22-2015 tetanus and diphther ia toxoids, adsorbed, preservative free, for adult use (5 Lf of tetanus toxoid and 2 Lf of diphtheria toxoid) Domingo Leonardo Other [facility] 07-08-2014 influenza virus vaccine, split virus (incl. purified surface antigen) Domingo Leonardo Other [facility] [employer] Other 07-08-2014 influenza virus vaccine, unspecified formulation [facility] 07-08-2014 pneumococcal Conjuga te, unspecified formulation; Translations: [Need for prophylactic vaccination against Streptococcus pneumoniae (pneumococcus)] Domingo Leonardo Other [facility] [employer] Other 07-08-2014 pneumococcal polysaccharide vaccine, 23 valent Domingo Patterson Other [facility] Payers Date Payer Category Payer Self-pay 1958 Medicare [id number] 1945 Unknown [id number] 2.16.8 [id number] 1945 Unknown [id number] 2.16.8 40.1.920117.3.579.2.727 1945 Unknown [id number] 2.16.84 0.1.048933.3.579.2.593 1945 Unknown [id number] 2.16.84 0.1.375154.3.579.2.593 1945 Unknown [id number] 2.16.84 0.1.840455.3.579.2.593 1945 Unknown [id number] 2.16.84 0.1.053460.3.579.2.593 1945 Unknown [id number] 2.16.84 0.1.064322.3.579.2.593 1945 Unknown [id number] 2.16.84 0.1.316282.3.579.2.593 1945 Unknown [id number] 2.16.84 0.1.552258.3.579.2.593 1945 Unknown [id number] 2.16.84 0.1.237244.3.579.2.593 1945 Unknown [id number] 2.16.84 0.1.015559.3.579.2.593 1945 Unknown [id number] 2.16.84 0.1.139623.3.579.2.593 1945 Unknown [id number] 2.16.84 0.1.591423.3.579.2.593 1945 Unknown [id number] 2.16.84 0.1.920731.3.579.2.593 1945 Unknown [id number] 2.16.84 0.1.660184.3.579.2.1259 1945 Unknown [id number] 2.16.840 .1.904890.3.579.2.1259 Unknown [id number] 2.16.8 40.1.931901.3.579.2.531 Unknown [id number] 2.16.8 40.1.265667.3.579.2.531 Unknown [id number] 2.16.8 40.1.300470.3.579.2.531 Social History Date Type Detail Facility Start: 08-14-2021 End: 11-07-2021 Tobacco smoking status Ex-smoker (finding) [facility] Sex Assigned At Male [facility] Start: 1945 Sex Assigned At Male F [facility] Clinical Notes 11-27-2021 to 08-13-2023 Note [...] are maintaining regular scheduled appts with their legal research analyst. Aug, Hypercholesteremia (ICD-10 - E78.00) Instructed on [...] use (ICD-10 - Z79.899) Check labs: CBC [facility] Other 04-04-2023 Evaluation note* Encounter Date Diagnosis [...] as Warfarin can be affected by [employer] Other 12-13-2022 NoteHNO ID: [id number] Author: Mya Oden V, MD Service: ? [...] patient was offered a surgery/procedure at a [facility] facility. The surgeon/proceduralist and patient have [...] form. -F/U [address] Coelho ([facility]) The documentation recorded by the scribe [...] Mya ODEN MD August 13, 2022 12:27 [facility]12-13-2022 NoteHNO ID: [id number] Author: Chon Andersen OD Service: ? Author Type: LEGAL EXECUTIVE Type: Progress Notes Filed: 08/13/2022 12:32 PM [...] Chon Andersen, OD August 13, 2022 12:05 [facility]11-07-2022 NoteHNO ID: [id number] Author: Joaquín Saul MD Service: ? Author [...] at night; likely PVD related - Outside agricultural engineering technician recommend carotids, they were normal I have [...] MD Vitreoretinal Surgery AND Ocular Inflammatory Diseases [facility]03-29-2022 Hospital Discharge instructions Patient Education 11/27/2021 12:13:58 [...] urethra. Follow these instructions at home: Take [id number]-ugl-xlwtcjy and prescription medicines only as told by [...] 08/18/2006 Document Revised: 07/13/2019 Document Reviewed: 09/22/2017 [employer] Patient Education [employer]. Follow Up Care 11/05/2021 16:15:55 With:Frederick Eckert MD, Ilir Leach, URO Address: When:1 year Comments:w/psa [facility] evaluation + Plan note Future Appointments Appointment Date:12/03/2022 08:00:00 AM Scheduled Provider:Ilir Mack Jr., MD Location:[facility] Appointment Type:URO Office Visit Diagnostic Tests Pending * PSA Total 11/27/21 [facility] evalnnamdy noteNo InformationNort Dom[employer] Other Evaluation note* Diagnosis Onset Date Resolution Status Primary osteoarthritis of left knee noneactive Left knee pain noneactive Anticoagulated on Coumadin n oneactive [facility] Work Phone: Hise[employer] general Narrative - Reported* Type Description Date Medical History hypertension Medical History BPH Surgical History open heart surgery 2008 Surgical History prostate surgery [employer] Other History general Narrative - Reported* Type Description Date Medical History hypertension Medical History BPH Surgical History open heart surgery 2007 Surgical History prostate surgery Hospitalization History see surgical hx [employer] Other Hospital course Narrative No data available for this section [facility] Hospital Discharge instructions No data available for this section [facility] Hospital Discharge instructionsAmbulatory Orders* Referral to Orthopedic Surgery Location: None Selected [facility] Work Phone: Progress note No data available for this section [facility] Summary Purpose Family History No Family History [...] section and content) DATE CREATED AUTHOR 08/14/2022 [facility] DATE CREATED AUTHOR AUTHOR'S ORGANIZ ATION 10/05/2022 [facility] DATE CREATED AUTHOR AUTHOR'S ORGANIZ ATION 12/04/2022 [facility] DATE CREATED AUTHOR AUTHOR'S ORGANIZ ATION 02/07/2023 [facility] DATE CREATED AUTHOR AUTHOR'S ORGANIZ ATION 12/22/2023 [facility] EPIC REASON FOR VISIT (unrecogniz ed section and content) [phone] COVID [phone] COVID +RefillNo InformationWellnessLab resultsMedication Question Patient Care [...] BE BASED ON THE PRIMARY CLINICAL RECORDS. [facility] [employer] [facility]. provides no warranty or guarantee of the accuracy or completeness of information in this document.
[2024-01-08] MEDS: REGADENOSON 0.4 MG/5 ML SYRINGE 0.400000000000000022 MG IV (12:59)
[2024-01-08] MEDS: AMINOPHYLLINE 250 MG/10 ML VIAL 25 MG IVP (13:05)
[2024-01-08] MEDS: NITROGLYCERIN 0.4 MG BOTTLE 0.400000000000000022 MG SL (13:06)
--- NOTE | 2024-01-08 13:25 | P.STRESS_ITS ---
Stress Test Stress Test Requesting physician: Domingo Patterson Procedure: Treadmill exercise test General Information: Reason for Stress Test: Evaluation of a patient with known coronary disease and symptoms of substernal chest discomfort described as burning and shortness of breath. Cardiac History and Risk Factors: Mr. Cai is a 78-year-old patient with known coronary arrtery disease. He is status post coronary artery bypass gerald ting ?2 with associated risk factors of essential hypertension, hyperlipidemia and persistent atrial fibrillation. Resting 12 - Lead Electrocardiogram: Atrial fibrillation with a ventricular rate of 75 bpm. 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 There is nonspecific ST-T wave changes noted in the inferior leads. Stress Test: Protocol: Lexiscan protocol Exercise Capacity: not applicable Blood Pressure Response: Mr. Cai's heart rate increased with a slight decrease in blood pressure which is appropriate for Lexiscan infusion. Rhythm: Patient remained in atrial fibrillation during infusion with occasional ventricular couplets and PVCs ST - Response: During infusion the patient developed ST elevation in lead III with downsloping ST depression in leads I, aVL, V4-6. Aminophylline and sublin gual nitroglycerin were given with complete resolution of the ST/T wave abnormalities. Patient Response: The patient complained of substernal chest tightness with shortness of breath during infusion, which resolved prior to giving NTG. Interpretation: There was both subjective and objective evidence suspicious for myocardial ischemia during infusion. Aminophylline and sublingual nitroglycerin were required to reverse the ischemic EKG changes. Cardilate images and interpretation are pending
== END 2024-01-08 11:47 | disposition home or self-care (01) ==
LOC: CARD 11:47
PROVIDERS: PCP Internal Medicine; Visit Provider Internal Medicine
DX: I25.10 Atherosclerotic heart disease of native coronary artery without angina pectoris (principal); I10 Essential (primary) hypertension; I48.91 Unspecified atrial fibrillation; R53.83 Other fatigue; R07.9 Chest pain, unspecified
CPT/HCPCS: 93017; J2785

== ENCOUNTER 2024-01-20 16:52 | Emergency (ER) | payer MEDICARE, SELFPAY ==
[2024-01-20 16:57] VITALS: BP 167/86; PULSE 75; TEMP 36.5; O2SAT 98; BMI 32.1
--- OUTSIDE RECORDS SUMMARY | 2024-01-20 17:02 | XMS_ITS | CCD ---
Author Organization [facility] Care Team Providers Care Manuscript Editor Name Role Phone DOMINGO PATTERSON Primary Care Physician JOAQUÍN SAUL Attending Unavailable MAURO COELHO Referring Unavailab MYA Baird Attending Unavailable MAURO COELHO Referring Unavailab Domingo Quesada Unavailable Sukhjinder MONTEMAYOR Attending Unavailable Sukhjinder MONTEMAYOR Attending Unavailable ARLEEN, DR BURROUGHS Primary Care Unavailable FAWWAD, DA [...] Unavailable BALL, DR BURROUGHS Primary Care Unavailable WEST, DR LEDA Dennis Consulting Unavailable FAWWAD, DA SILVA H Attending Unavailable BALL, DR BURROUGHS Primary Care Unavailable FAWWAD, DA SILVA H Admitting Unavailable CINDI MORRELLIKH H Attending Unavailable DR DOMINGO PATTERSON Primary Care Unavailable PETROS, H Admitting Unavailable ARLEEN, DR BURROUGHS Primary Care Unavailable FATANGELA, DA SILVA H Admitting Unavailable FANICHOLASD, DA SILVA H Attending Unavailable RUI DORSEY Attending Unavailable WILEY ABAD Attending Unavailable Yolanda Barrientos Admitting Unavailable Yolanda Barrientos Attending Unavailable Domingo Patterson Primary Care Unavailable Allergies Allergy Classification Reported Allergen(s) Allergy Type Date of Onset Reaction(s) Facility (4 sources) atorvastatin Drug Allergy Unknown [employer] Other (1 source) patient allergy list reviewed by nurse or physicia Propensity to adverse reactions 3 Comment:Done [employer] Other (1 source) atorvastatin Drug Allergy 4 [place] Repository (1 source) Egeefnq-[id number]-CsD Reductase Inhibitor Drug allergy (disorder) [address] [place] [address] Repository Medications Current Medications Medication Drug Class(es) Dates [...] aspirin 81 mg delayed release oral tablet (14 sources) Platelet Aggregation Inhibitor, Nonsteroidal Anti-inflammatory Drug Start: 11-02-2021 take 1 tablet by mouth once daily Aspirin (Aspirin Low Dose) 81 mg Tablet,Delayed Release (Dr/Ec) Active 81 MG PO Daily November 02, 2021 1:00am Start: 09-30-2019 aspirin Refill s(s) 0 Start Date: 09/30/19 Status: Ordered Aspirin 81 Activ e 24 hr isosorbide mononitrate 30 mg extended release oral tablet (1 source) Nitrate Vasodilator Start: 01-08-2024 take 30 mg by mouth once daily Isosorbide Mononitrate Active 30 MG PO Daily January 08, 2024 12:00am losartan potassium 25 mg oral tablet (20 sources) Angiotensin 2 Receptor [employer] Start: 12-25-2023 take 25 mg by mouth twice daily Losartan Active 25 MG PO Twice daily 180 December 25, 2023 5:13pm Start: 10-28-2023 End: 12-25-2023 take 1 tablet by mouth once daily Losartan Discontinued 0 .ROUTE .COMPLEX 90 October 28, 2023 2:37pm December 25, 2023 5:15pm TAKE 1 TABLET BY MOUTH EVERY DAY Start: 10-28-2023 take 1 tablet by daryl th once daily Losartan Active 0 .ROUTE .COMPLEX [...] Ordered metoprolol tartrate 75 mg oral tablet (20 sources) beta-Adrenergic Fabiola Start: 01-08-2024 take 75 mg by mouth twice daily Metoprolol Tartrate Active 75 MG PO Twice daily 180 January 08, 2024 4:33pm Start: 10-28-2023 End: 01-08-2024 take 1 tablet by mouth twice daily at mealtime Metoprolol Tartrate Discontinued 0 .ROUTE .COMPLEX 180 October 28, 2023 2:36pm January 08, 2024 4:34pm TAKE 1 TABLET BY MOUTH TWICE DAILY [...] Refill(s) 0 Start Date: 09/30/19 Status: Ordered Rothschild 3 (7 sources) Rothschild 3 Active Rothschild-3 (2 sources) Start: 09-30-2019 Rothschild-3 Refill (s) 0 Start Date: 09/30/19 Status: Ordered paxlovid (300/100) 20 x 150 mg & 10 x 100mg tablet therapy pack (3 sources) Start: 12-03-2022 take 3 tablets by mouth every twelve hours Paxlovid (300/100) 20 x 150 MG & 10 x 100MG 3 tablets Orally Twice a day for 5 day(s) Nov, Active warfarin sodium 4 mg oral tablet (19 sources) Vitamin K Antagonist Start: 11-02-2021 take 4 mg by mouth five times weekly Warfarin Active 4 MG PO 5 TIMES PER WEEK November 02, 2021 1:00am Sun/Mon/Fri/Fri/S at Start: 11-02-2021 take 6 mg by [...] Sig (Original) cephalexin 500 mg oral capsule (5 sources) Cephalosporin Antibacterial Start: 11-07-2021 End: 12-04-2023 take 500 mg by mouth every twelve hours Cephalexin Discontinued 500 MG PO Q12H 4 2 November 07, 2021 1:00am December 04, 2023 10:44am Multivitamin preparation (12 sources) Start: 11-02-2021 End: 12-04-2023 take 1 [...] Translations: [Acute posthemorrhagic anemia] Episodic Anxiety disorders (12 sources) Anxiety; Translations: [Generalized anxiety disorder] 09-30-2019 Chronic Cardiac dysrhythmias (12 sources) Permanent atrial fibrillation; Translations: [Permanent atrial fibrillation] 12-15-2023 Chronic Cataract (1 source) Other secondary cataract, bilateral; Translations: [PCO (posterior capsular opacification), bilateral] Onset: 08-13-2022 Chronic Coronary atherosclerosis and other heart disease (18 sources) Coronary arteriosclerosis; Translations: [Atherosclerotic heart disease of [place] coronary artery without angina pectoris] Onset: 03-23-2019 Chronic Disorders of lipid metabolism (15 sources) Hyperlipidemia; Translations: [Pure hypercholesterolemia] Onset: 08-01-2018 09-30-2019 Chronic Essential hypertension (6 sources) Hypertensive disorder; Translations: [Essential (primary) hypertension] [...] knee, initial encounter] Episodic Nonspecific chest pain (3 sources) Chest pain; Translations: [Chest pain, unspecified] 12-15-2023 Episodic Osteoarthritis (13 sources) Arthritis of right wrist; Translations: [Primary osteoarthritis, right wrist] 12-05-2023 Chronic Other aftercare (1 source) Long-term current use of anticoagulant; 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] Onset: 11-27-2021 Episodic Other aftercare (5 sources) Encounter for therapeutic drug level monitoring; Translations: [ENC THERAPEUTC DRUG LEVL MONITORING] Onset: 12-28-2022 Episodic Other aftercare (7 sources) alf (current) use of anticoagulants; Translations: [Long-term (current) use of anticoagulants] Onset: 01-29-2023 Episodic Other aftercare (1 source) Long-term current use of drug therapy; Translations: [Other senior care (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] Episodic Other aftercare (3 sources) Anticoagulant effect; Translations: [alf (current) use of anticoagulants] Episodic Other aftercare (1 source) Other 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 (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 Episodic Other circulatory disease [...] source) Dyspnea; Translations: [Dyspnea, unspecified] Episodic Other lower respiratory disease (1 source) Dyspnea on exertion; Translations: [Other forms of dyspnea] 12-15-2023 Episodic Other lower respiratory disease (1 source) Other forms of dyspnea; Translations: [Other respiratory abnormalities] 12-15-2023 Episodic Other non-traumatic joint disorders (1 source) Pain in wrist; Translations: [Pain in right wrist] Episodic Other non-traumatic joint disorders (1 source) Arthralgia of the lower leg; Translations: [Pain in right knee] Episodic Other non-traumatic joint disorders (5 sources) Pain in left knee; Translations: [Pain [...] conditions (not mental disorders or infectious disease) (7 sources) Raised prostate specific antigen; Translations: [Elevated [...] (2 sources) Drug therapy finding 11-27-2021 Unclassified (5 sources) Chronic atrial fibrillation, unspecified; [...] Results Test Name Value Interpretation Reference Range Facility Basophils Auto (Bld) [#/Vol] on 01-07-2024 Basophils (Bld) [#/Vol] 0.1 10 3/uL 0.0-0.1 [place] Basophils/100 WBC Auto (Bld) on 01-07-2024 Basophils/100 WBC (Bld) 0.8 % 0.2-2.0 [place] Eosinophils/100 WBC Auto (Bl d)on 01-07-2024 Eosinophils/100 WBC (Bld) 1.0 % 0.9-7.0 [place] Erythrocyte distribution wid th Auto (RBC) [Ratio]on 01-07-2024 Erythrocyte distribution width (RBC) [Ratio] 12.4 % 11.0-15.0 [place] Estimated glomerular filtrat ion rate (GFR) non- Americanon 01-07-2024 GFR/1.73 sq M.predicted among non-blacks MDRD (S/P/Bld) [Vol rate/Area] mL/min/{1.73_m2} >=60 [place] Globulin Calc (S) [Mass/Vol] on 01-07-2024 Globulin (S) [Mass/Vol] 3.3 g/dL [place] Hematocrit Auto (Bld) [Volum e fraction]on 01-07-2024 Hematocrit (Bld) [Volume fraction] 47.3 % 42.0-54.0 [place] Hemoglobin [Mass/volume] in Bloodon 01-07-2024 Hemoglobin (Bld) [Mass/Vol] 15.6 g/dL 14.0-18.0 [place] Laboratory - Chemistry and C hemistry - challengeon 01-07-2024 Albumin [Mass/Vol] 3.7 g/dL 3.4-5.0 [facility] ALP [Catalytic activity/Vol] 85 U/L 46-116 [place] ALT [Catalytic activity/Vol] 38 U/L 16-63 [place] AST [Catalytic activity/Vol] 29 U/L 15-37 [place] Bilirubin [Mass/Vol] 0.8 mg/dL 0.2-1.0 [facility] Calcium [Mass/Vol] 9.1 mg/dL 8.5-10.1 [facility] Chloride [Moles/Vol] 104 mmol/L 98-107 [facility] CO2 [Moles/Vol] 31.4 mmol/L 21.0-32.0 [facility] Creatinine [Mass/Vol] 1.00 mg/dL 0.70-1.30 [facility] GFR/1.73 sq M.predicted MDRD (S/P/Bld) [Vol rate/Area] mL/min/{1.73_m2} >=60 [place] Glucose [Mass/Vol] 100 mg/dL 74-106 [facility] Potassium [Moles/Vol] 4.7 mmol/L 3.5-5.1 [facility] Protein [Mass/Vol] 7.0 g/dL 6.4-8.2 [facility] Sodium [Moles/Vol] 140 mmol/L 136-145 [facility] TSH Qn 1.839 m[IU]/L 0.358-3.740 [place] Urea nitrogen [Mass/Vol] 15.0 mg/dL 7.0-18.0 [place] Urea nitrogen/Creatinine [Mass ratio] 15.0 mg/mg [place] [facility] - Hematology and Cell countson 01-07-2024 Immature granulocytes/100 WBC (Bld) 0.4 % 0.0-0.5 [place] Leukocytes [#/volume] correc cee for nucleated erythrocytes in Blood by Automated counon 01-07-2024 WBC corrected for nucl RBC Auto (Bld) [#/Vol] 7.3 10 3/uL 4.0-11.0 [place] Lymphocytes Auto (Bld) [#/Vo l]on 01-07-2024 Lymphocytes (Bld) [#/Vol] 1.1 10 3/uL 1.2-3.8 [place] Lymphocytes/100 WBC Auto (Bl d)on 01-07-2024 Lymphocytes/100 WBC (Bld) 15.3 % 20.5-60.0 [place] MCH Auto (RBC) [Entitic mass ]on 01-07-2024 MCH (RBC) [Entitic mass] 31.6 pg 25.9-34.0 [place] MCHC Auto (RBC) [Mass/Vol]on 01-07-2024 MCHC (RBC) [Mass/Vol] 33.0 g/dL 29.9-35.2 [facility] MCV Auto (RBC) [Entitic vol] on 01-07-2024 MCV (RBC) [Entitic vol] 95.7 fL 80.0-94.0 [place] Monocytes Auto (Bld) [#/Vol] on 01-07-2024 Monocytes (Bld) [#/Vol] 0.6 10 3/uL 0.3-0.8 [place] Monocytes/100 WBC Auto (Bld) on 01-07-2024 Monocytes/100 WBC (Bld) 7.5 % 1.7-12.0 [place] Neutrophils Auto (Bld) [#/Vo l]on 01-07-2024 Neutrophils (Bld) [#/Vol] 5.5 10 3/uL 1.4-6.5 [place] Neutrophils/100 WBC Auto (Bl d)on 01-07-2024 Neutrophils/100 WBC (Bld) 75.0 % 43.0-75.0 [place] No Panel Informationon 01-06 Eosinophils # (Auto) 0.1 10 3/uL 0.0-0.7 [facility] Immature Granulocyte # (Auto) 0.03 10 3/uL 0.00-0.03 [place] Platelet mean volume Auto (B ld) [Entitic vol]on 01-07-2024 Platelet mean volume (Bld) [Entitic vol] 10.3 fL 9.5-13.5 [place] Platelets Auto (Bld) [#/Vol] on 01-07-2024 Platelets (Bld) [#/Vol] 172 10 3/uL 150-450 [place] RBC Auto (Bld) [#/Vol]on RBC (Bld) [#/Vol] 4.94 10 6/uL 4.70-6.10 [facility] Serum or plasma albumin/glob ulin mass ratioon 01-07-2024 Albumin/Globulin [Mass ratio] 1.1 {ratio} [place] Serum or plasma anion gap de terminationon 01-07-2024 Anion gap [Moles/Vol] 9.3 mmol/L [facility] Provider Letteron 11-21-2022 Provider Letter November 21, 2022 WILEY DAVID Leach [id number] [address] DAVID JAMA 1945 Dear Mr. Jama, We have been trying to reach [...] prompt attention to this matter. Please call [phone] before end october to reschedule! Sincerely, [facility] [address], [place] [address] [facility] US CAROTID ART BILon 022 US CAROTID ART MICH EXAMINATION: US [...] by: LEDA MORALES Date: 2022-07-05 17:14 Normal [facility] RAD - CT Reporton 01-30-2022 RAD - CT Report [id number] .[id number]:[address] [facility] Vital Signs Date Time Vital Sign Value Performing Clinician Facility 01-09-2024 15:25-0400 Body height 180.34 cm [facility] 01-09-2024 15:25-0400 Body mass index (BMI) [Ratio] 32.5 kg/m2 [place] 01-09-2024 15:25-0400 Body weight 105.68 kg [facility] 01-09-2024 15:25-0400 Diastolic blood pressure 66 mm[Hg] [place] 01-09-2024 15:25-0400 Heart rate 76 /min [facility] 01-09-2024 15:25-0400 Respiratory rate 12 /min [facility] 01-09-2024 15:25-0400 Systolic blood pressure 114 mm[Hg] [place] 12-15-2023 15:16-0400 Body height 180.34 cm [facility] 12-15-2023 15:16-0400 Body mass index (BMI) [Ratio] 32.8 kg/m2 [place] 12-15-2023 15:16-0400 Body weight 106.7 kg [facility] 12-15-2023 15:16-0400 Diastolic blood pressure 74 mm[Hg] [place] 12-15-2023 15:16-0400 Heart rate 85 /min [facility] 12-15-2023 15:16-0400 Respiratory rate 12 /min [facility] 12-15-2023 15:16-0400 Systolic blood pressure 170 mm[Hg] [place] 12-05-2023 13:33-0400 Body height 180.34 cm [facility] 12-05-2023 13:33-0400 Body mass index (BMI) [Ratio] 34 kg/m2 [place] 12-05-2023 13:33-0400 Body weight 110.67 kg [facility] 12-05-2023 13:33-0400 Diastolic blood pressure 88 mm[Hg] [place] 12-05-2023 13:33-0400 Heart rate 80 /min [facility] 12-05-2023 13:33-0400 Respiratory rate 12 /min [facility] 12-05-2023 13:33-0400 Systolic blood pressure 138 mm[Hg] [place] 08-13-2023 09:00-0500 Body height 180.34 cm Domingo [email or web address] Other [employer] Other 08-13-2023 09:00-0500 Body mass index (BMI) [Ratio] 32.66 kg/m2 Domingo [email or web address] Other [employer] Other 08-13-2023 09:00-0500 Body weight 106.23 kg Domingo [email or web address] Other [employer] Other 08-13-2023 09:00-0500 Diastolic blood pressure 88 mm[Hg] Domingo [email or web address] Other [employer] Other 08-13-2023 09:00-0500 Respiratory rate 12 /min Domingo [email or web address] Other [employer] Other 08-13-2023 09:00-0500 Systolic blood pressure 139 mm[Hg] Domingo [email or web address] Other [employer] Other Encounters Encounter Date Encounter Type Care Provider Facility Start: 01-15-2024 End: 01-15-2024 ambulatory Yolanda Floyd Facility:[place] Start: 01-09-2024 End: 01-09-2024 ambulatory [facility] Work Phone: Start: 01-09-2024 End: 01-09-2024 Patient encounter procedure Replaced By [email or web address] Work Phone: Start: 01-07-2024 Non-patient / Non-visit Replaced By [facility] Work Phone: Start: 12-22-2023 End: 12-22-2023 ambulatory RUI NORWOODING Not Available Start: 12-15-2023 End: 12-15-2023 ambulatory [facility] Work Phone: Start: 12-15-2023 End: 12-15-2023 Patient encounter procedure Replaced By [facility] Work Phone: Start: 12-12-2023 ambulatory [facility] Work Phone: Start: 12-12-2023 Non-patient / Non-visit Replaced By [facility] Work Phone: Start: 12-10-2023 ambulatory [facility] Work Phone: Start: 12-10-2023 Non-patient / Non-visit Replaced By [facility] Work Phone: Start: 12-05-2023 End: 12-05-2023 ambulatory [facility] Work Phone: Start: 12-05-2023 End: 12-05-2023 Patient encounter procedure Replaced By [facility] Work Phone: Start: 09-30-2023 End: 09-30-2023 ambulatory Domingo Patterson Other [employer] Other Start: 09-30-2023 Telephone encounter Domingo DELGADO [facility] Start: 08-21-2023 End: 08-21-2023 ambulatory WILEY ABAD Not Available Start: 08-15-2023 End: 08-15-2023 ambulatory Domingo Patterson Other [employer] Other Start: 08-15-2023 Telephone encounter Domingo DELGADO [facility] Start: 08-13-2023 End: 08-13-2023 ambulatory Domingo Patterson Other [employer] Other Start: 08-13-2023 Patient encounter procedure Domingo Patterson [facility] Start: 07-29-2023 End: 07-29-2023 ambulatory Domingo Patterson Other [employer] Other Start: 07-29-2023 Telephone encounter Domingo DELGADO [facility] Start: 02-18-2023 End: 02-18-2023 ambulatory Domingo Patterson Other [employer] Other Start: 02-18-2023 Telephone encounter Domingo DELGADO [facility] Start: 12-30-2022 End: 01-29-2023 ambulatory DA SILVA H FAWWAD Facility:[facility] Start: 12-03-2022 Office outpatient vi sit 15 minutes Domingo Patterson [facility] Start: 12-03-2022 End: 12-04-2022 ambulatory Sukhjinder Agnes MONTEMAYOR [facility] Other Start: 12-03-2022 End: 12-03-2022 Patient encounter procedure Ilir Mack Jr. [facility] Start: 12-02-2022 End: 12-27-2022 ambulatory DA SILVA H NGUYỄND Facility:[facility] Start: 10-30-2022 End: 11-29-[address] DOMINGO PATTERSON Facility:[facility] Start: 10-02-2022 End: 10-30-2022 ambulatory DA SILVA Reilly MORRELL Facility:[facility] Start: 09-02-2022 End: 10-02-2022 ambulatory DA SILVA Reilly MORRELL Facility:[facility] Start: 08-13-2022 End: 08-13-2022 ambulatory MYA ODEN Facility:[facility] Start: 08-01-2022 End: 09-01-2022 ambulatory DA SILVA H PETROS Facility:[facility] Start: 07-08-2022 End: 07-08-2022 ambulatory JOAQUÍN SAUL Facility:[facility] Start: 07-05-2022 End: 07-06-[address] DOMINGO PATTERSON Facility:[facility] Start: 07-02-2022 End: 07-31-[address] DOMINGO PATTERSON Facility:[facility] Start: 06-02-2022 End: 07-01-[address] DOMINGO PATTERSON Facility:[facility] Start: 05-02-2022 End: 06-01-[address] DOMINGO PATTERSON Facility:[facility] Start: 04-01-2022 End: 05-01-[address] DOMINGO PATTERSON Facility:[facility] Start: 03-01-2022 End: 03-29-2022 ambulatory SHAIKH Reilly MORRELL Facility:[facility] Start: 02-19-2022 ambulatory Sukhjinder Alarcon SIM Lindseyhans ty:[facility] Start: 11-27-2021 End: 11-27-2021 Patient encounter procedure Ilir Mack Jr. [facility] Start: 09-20-2021 Adult health examination Domingo Patterson Other [employer] Other Procedures Date Procedure Procedure Detail Performing [...] Ilir Mack Jr. Start: 07-08-2014 Cystoscopy Ilir iqbal Jr. Start: 05-09-2010 Cysto/ TURP Ilir iqbal Jr. Start: 04-24-2010 Cystoscopy Ilir iqbal Jr. Start: 04-20-2010 Urodynamic studies Jyothi Mack Jr. Start: 04-06-2010 TRUS/BX Ilir iqbal Jr. Start: 09-01-2001 TRUS/BX Ilir iqbal Jr. Coronary artery bypa ss graft operation planned Ilir Mack Jr. Depression screening Vern Patterson Other Plan of Treatment Date Care Activity Detail Author Start: 12-12-2023 Patient referral [facility] Work Phone: Start: 12-10-2023 Patient referral [facility] Work Phone: Comprehensive metabo lic 2000 panel - Serum or Plasma [place] Patient referral [facility] Work Phone: US Heart Transthoracic [facility] Immunizations Immunization Date Immunization Notes Care Provider Fa cility 06-09-2023 influenza virus vaccine, unspecified formulation [place] 06-09-2023 influenza, high dose seasonal, preservative-free Domingo Patterson Other [facility] [employer] Other 06-24-2022 influenza virus vaccine, split virus (incl. purified surface antigen) Domingo Patterson Other [facility] [employer] Other 06-24-2022 influenza virus vaccine, unspecified formulation [place] 07-09-2021 influenza virus vaccine, split virus (incl. purified surface antigen) Domingo Patterson Other [facility] [employer] Other 07-09-2021 influenza virus vaccine, unspecified formulation [place] 06-10-2021 COVID-19 mRNA, Comirnaty (Pfizer) [place] 06-03-2021 SARS-CoV-2 (COVID-19 ) Ad26 vaccine, recombinant Ilir Mack Jr. [facility] 11-10-2020 SARS-CoV-2 (COVID-19 ) Ad26 vaccine, recombinant Ilir Mack Jr. [facility] 10-27-2020 COVID-19 mRNA, Comirnaty (Pfizer) [place] 10-13-2020 SARS-CoV-2 (COVID-19 ) Ad26 vaccine, recombinant Ilir Frederick Eckert [facility] 10-06-2020 COVID-19 mRNA, Comirnaty (Pfizer) [place] 06-06-2020 influenza virus vaccine, split virus (incl. purified surface antigen) Domingo Patterson Other [facility] [employer] Other 06-06-2020 influenza virus vaccine, unspecified formulation [place] 06-04-2019 influenza virus vaccine, split virus (incl. purified surface antigen) Domingo Patterson Other [facility] [employer] Other 06-04-2019 influenza virus vaccine, unspecified formulation [place] 06-12-2018 influenza virus vaccine, split virus (incl. purified surface antigen) Domingo Patterson Other [facility] [employer] Other 06-12-2018 influenza virus vaccine, unspecified formulation [place] 06-30-2017 influenza virus vaccine, split virus (incl. purified surface antigen) Domingo Patterson Other [facility] [employer] Other 06-30-2017 influenza virus vaccine, unspecified formulation [place] 06-27-2016 influenza virus vaccine, split virus (incl. purified surface antigen) Domingo Patterson Other [facility] [employer] Other 06-27-2016 influenza virus vaccine, unspecified formulation [place] 08-21-2015 pneumococcal conjuga te vaccine, 13 valent Domingo Patterson Other [place] 06-22-2015 tetanus and diphther ia toxoids, adsorbed, preservative free, for adult use (5 Lf of tetanus toxoid and 2 Lf of diphtheria toxoid) Domingo Patterson Other [place] 07-08-2014 influenza virus vaccine, split virus (incl. purified surface antigen) Domingo Patterson Other [employer] Other 07-08-2014 influenza virus vaccine, unspecified formulation [place] 07-08-2014 pneumococcal Conjuga te, unspecified formulation; Translations: [Need for prophylactic vaccination against Streptococcus pneumoniae (pneumococcus)] Domingo Patterson Other [employer] Other 07-08-2014 pneumococcal polysaccharide vaccine, 23 valent Domingo Patterson Other [place] Payers Date Payer Category Payer Self-pay [id number] 1958 Medicare [id number] 1945 Unknown [id number] 2.16.8 [id number] 1945 Unknown [id number] 2.16.8 40.1.247192.3.579.2.727 1945 Unknown [id number] 2.16.84 0.1.442323.3.579.2.593 1945 Unknown [id number] 2.16.84 0.1.312589.3.579.2.593 1945 Unknown [id number] 2.16.84 0.1.217932.3.579.2.593 1945 Unknown [id number] 2.16.84 0.1.160282.3.579.2.593 1945 Unknown [id number] 2.16.84 0.1.301781.3.579.2.593 1945 Unknown [id number] 2.16.84 0.1.300209.3.579.2.59 1945 Unknown [id number] 2.16.84 0.1.246457.3.579.2.593 1945 Unknown [id number] 2.16.84 0.1.997930.3.579.2.593 1945 Unknown [id number] 2.16.84 0.1.727885.3.579.2.593 1945 Unknown [id number] 2.16.84 0.1.536303.3.579.2.593 1945 Unknown [id number] 2.16.84 0.1.692937.3.579.2.593 1945 Unknown [id number] 2.16.84 0.1.051900.3.579.2.593 1945 Unknown [id number] 2.16.84 0.1.878497.3.579.2.1259 1945 Unknown [id number] 2.16.840 .1.861309.3.579.2.1259 Unknown [id number] 2.16.8 40.1.182836.3.579.2.531 Social History Date Type Detail Facility Start: 08-14-2021 End: 11-07-2021 Tobacco smoking status Ex-smoker (finding) [facility] Sex Assigned At Male [facility] Start: 1945 Sex Assigned At Male F [facility] Clinical Notes 11-27-2021 to 08-13-2023 Note Date [...] are maintaining 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 Aug, Hypercholesteremia (ICD-10 - E78.00) Instructed on [...] use (ICD-10 - Z79.899) Check labs: CBC [employer] Other 04-04-2023 Evaluation note* Encounter Date Diagnosis [...] as Warfarin can be affected by Paxlovid [employer] Other [id number] ID: [id number] Author: Mya Oden V, MD Service: ? Author Type: Physician Type: Progress Notes Filed: 08/13/2022 12:32 PM Note Text: The documentation for this note was completed by SAVITA Dasilva acting as a scribe for Mya ODEN [...] patient was offered a surgery/procedure at a [facility] facility. The surgeon/proceduralist and patient have [...] form. -F/U [address] Coelho ([facility]) The documentation recorded by the [...] Mya ODEN MD August 13, 2022 12:27 [facility]12-13-2022 NoteHNO ID: [id number] Author: Chon Andersen OD Service: ? Author Type: VICE PRESIDENT OF TALENT ACQUISITION Type: Progress Notes Filed: 08/13/2022 12:32 PM [...] all of its relevant components. Chon Andersen, ALAN August 13, 2022 12:05 [facility]11-07-2022 NoteHNO ID: [id number] Author: Joaquín Saul MD Service: ? Author [...] at night; likely PVD related - Outside professor in family studies recommend carotids, they were normal I have [...] MD Vitreoretinal Surgery AND Ocular Inflammatory Diseases [facility]03-29-2022 Hospital Discharge instructions Patient Education 11/27/2021 12:13:58 [...] urethra. Follow these instructions at home: Take smto-ybf-srgsbns and prescription medicines only as told by [...] 08/18/2006 Document Revised: 07/13/2019 Document Reviewed: 09/22/2017 SEAT 4a Patient Education 2020 1d4 Pty. Follow Up Care 11/05/2021 16:15:55 With:Ilir Mack Jr., MD, URO Address: When:1 year Comments:sarah/leanna [facility] evaluation + Plan note Future Appointments Appointment Date:12/03/2022 08:00:00 AM Scheduled Provider:Ilir Mack Jr., MD Location:[facility] Appointment Type:URO Office Visit Diagnostic Tests Pending * PSA Total 11/27/21 [facility] evaluation noteNo InformationN[facility] Other Evaluation note* Diagnosis Onset Date Resolution Status Primary osteoarthritis of left knee noneactive Left knee pain noneactive Anticoagulated on Coumadin n oneactive [facility] Work Phone: Evaluation note* Diagnosis Onset Date Resolution Status Primary osteoarthritis of left knee noneactive Left knee pain noneactive Anticoagulated on Coumadin n oneactive ASHD (arteriosclerotic heart disease) acute Atrial fibrillation acute Chest pain acute [facility] (dyspnea on exertion) [place] Hypercholesteremia acute Hypertension acute [facility] Work Phone: History general Narrative - Reported* Type Description Date Medical History hypertension Medical History BPH Surgical History open heart surgery 2007 Surgical History prostate surgery [employer] Other [facility] general Narrative - Reported* Type Description Date Medical History hypertension Medical History BPH Surgical History open heart surgery 2007 Surgical History prostate surgery Hospitalization History see surgical hx Medicine in Practice [facility] [employer] Other Hospital course Narrative No data available for this section [facility] Hospital Discharge instructions No data available for this section [facility] Hospital Discharge instructionsAmbulatory Orders* Referral to Orthopedic Surgery Location: None Selected [facility] Work Phone: Progress note No data available for this section [facility] Summary Purpose Family History No Family [...] Chief Complaint Pain in Knee increased BP discuss recent testing results Reason for Visit Primary osteoarthrit is of left knee Left knee pain Anticoagulated on Coumadin ASHD (arteriosclerotic heart disease) Atrial fibrillation Chest pain [facility] (dyspnea on exertion) Hypercholesteremia Hypertension Additional Source Comments (unrecognized sect ion and content) No Status Records FoundNo Status Records FoundNo Status Records FoundNo Status Records FoundNo Status Records Found INFORMATION SOURCE (unrecogn ized section and content) DATE CREATED AUTHOR 08/14/2022 [facility] DATE CREATED AUTHOR AUTHOR'S ORGANIZ ATION 12/04/2022 [facility] DATE CREATED AUTHOR AUTHOR'S ORGANIZ ATION 02/07/2023 [facility] DATE CREATED AUTHOR AUTHOR'S ORGANIZ ATION 12/22/2023 [facility] EPIC DATE CREATED AUTHOR AUTHOR'S ORGANIZ ATION 01/18/2024 [facility] REASON FOR VISIT (unrecogniz ed section and content) [phone] COVID [phone] COVID +RefillNo InformationWellnessLab resultsMedication Question Patient Care team informatio n (unrecognized section and content) Team Status: Active Member Role Status Dates Domingo Patterson , DO Primary Care Provider Active Team Status: Inactive Member Role Status Dates Domingo Patterson DO Primary Care Provide r, Attending Provider Active Start: December 05, 2023 End: December 05, 2023 Team Status: Active Member Role Status [...] December 15, 2023 End: December 15, 2023 Team Status: Active Member Role Status Dates Domingo Patterson DO Primary Care Provide r, Attending Provider Active Start: January 07, 2024 Team Status: Inactive Member Role Status Dates Domingo Patterson DO Primary Care Provide r, Attending Provider Active Start: January 09, 2024 End: January 09, 2024 Goals (unrecognized section and content) Goals may [...] BE BASED ON THE PRIMARY CLINICAL RECORDS. [facility]. provides no warranty or guarantee of the accuracy or completeness of information in this document.
--- NOTE | 2024-01-20 17:17 | ED_ITS ---
HPI - Wound/Laceration General Chief Complaint: Wound/Laceration Stated Complaint: Laceration/Puncture Lower Extremity Time Seen by Provider: 01/20/24 17:06 Source: patient Mode of arrival: Wheelchair Limitations: no limitations History of Present Illness HPI narrative: 78-year-old male presents for a bleeding wound on his left lower leg anteriorly. He thought he had a tick on his leg so he got a pair of tweezers and pulled on it. It turns out it was a scab and he started bleeding. He is on Coumadin for A-fib. The bleeding has now stopped and he came in to get checked out. He has had no other bleeding such as from his gums or in his stool or other wounds. Related Data Home Medications ?Medication ?Instructions ?Recorded ?Confirmed warfarin 4 mg tablet 4 mg PO DAILY 01/20/24 01/20/24 Allergies Allergy/AdvReac Type Severity Reaction Status Date / Time No Known Drug Allergies Allergy Verified 01/20/24 17:00 Review of Systems ROS Narrative A ten point review of systems is negative except as noted above. Exam Narrative Exam Narrative: Nurses note and vital signs reviewed and patient is not hypoxic. General: The patient appears well and in no apparent distress. Patient is resting comfortably on cart. Skin: Warm, dry, no pallor noted. There is no rash noted but he has a few small bruises on various areas of his extremities.. Head: Normocephalic, atraumatic Eye: Normal conjunctiva, no drainage Ears, Nose, Mouth, and Throat: oral mucosa is moist. Nares patent. Cardiovascular: Irregularly irregular Respiratory: Patient is in no distress, no accessory muscle use, lungs are clear to auscultation, no wheezing, rales or rhonchi Back: non-tender GI: Soft and nontender Musculoskeletal: The left lower leg is examined. There are a few bruises but no active bleeding. The site of the bleeding is adjacent to a superficial vein. Neurological: A&O, normal speech Psychiatric: Cooperative Constitutional Vital Signs, click to edit/add: Last Vital Signs Temp 97.7 F 01/20/24 16:57 Pulse 75 01/20/24 16:57 Resp 20 01/20/24 16:57 BP 167/86 H 01/20/24 16:57 Pulse Ox 98 01/20/24 16:57 O2 Del Method Room Air 01/20/24 16:57 Course Vital Signs Vital signs: Vital Signs Temperature 97.7 F 01/20/24 16:57 Pulse Rate 75 01/20/24 16:57 Respiratory Rate 20 01/20/24 16:57 Blood Pressure 167/86 H 01/20/24 16:57 Pulse Oximetry 98 01/20/24 16:57 Oxygen Delivery Method Room Air 01/20/24 16:57 Temperature 97.7 F 01/20/24 16:57 Pulse Rate 75 01/20/24 16:57 Respiratory Rate 20 01/20/24 16:57 Blood Pressure 167/86 H 01/20/24 16:57 Pulse Oximetry 98 01/20/24 16:57 Oxygen Delivery Method Room Air 01/20/24 16:57 MDM - Wound/Laceration MDM Narrative Medical decision making narrative: He has no active bleeding. Gelfoam and dressing are applied. He will leave it on for 24 hours. Treatment diagnosis and follow-up were discussed with the patient. Differential Diagnosis Differential diagnosis: Likely laceration, avulsion of skin and other (Abrasion) Discharge Plan Discharge Stand Alone Forms: Portal Instructions Chief Complaint: Wound/Laceration Clinical Impression: Abrasion Patient Disposition: Home, Self-Care Time of Disposition Decision: 17:15 Condition: Good Mode of Transportation: Private Vehicle Prescriptions / Home Meds: No Action warfarin 4 mg tablet 4 mg PO DAILY Print Language: [place] Instructions: Abrasion (ED) Referrals: Domingo Patterson DO [Primary Care Provider] - 1 week
[2024-01-20] MEDS: SURGIFOAM GEL SPONGE SIZE 100 1 EACH TOPICAL (17:27)
== END 2024-01-20 17:38 | disposition home or self-care (01) ==
PROVIDERS: Emergency Provider Emergency Medicine; PCP Internal Medicine
DX: S80.812A Abrasion, left lower leg, initial encounter (principal); I48.91 Unspecified atrial fibrillation; Z79.01 Long term (current) use of anticoagulants; X58.XXXA Exposure to other specified factors, initial encounter
CPT/HCPCS: 99281

== ENCOUNTER 2024-02-02 00:12 | Outpatient (RCR) | payer MEDICARE, SELFPAY | END 2024-02-27 10:36 | disposition home or self-care (01) | LOC: MM 00:12 | PROVIDERS: PCP Internal Medicine; Visit Provider Internal Medicine | DX: Z51.81 Encounter for therapeutic drug level monitoring (principal); Z79.01 Long term (current) use of anticoagulants | CPT/HCPCS: 85610; G0463 ==

== ENCOUNTER 2024-03-01 00:32 | Outpatient (RCR) | payer MEDICARE, SELFPAY | END 2024-03-31 09:32 | disposition home or self-care (01) | LOC: MM 00:32 | PROVIDERS: PCP Internal Medicine; Visit Provider Internal Medicine | DX: Z51.81 Encounter for therapeutic drug level monitoring (principal); Z79.01 Long term (current) use of anticoagulants | CPT/HCPCS: 85610; G0463 ==

== ENCOUNTER 2024-04-01 00:15 | Outpatient (RCR) | payer MEDICARE, SELFPAY | END 2024-04-30 08:46 | disposition home or self-care (01) | LOC: MM 00:15 | PROVIDERS: PCP Internal Medicine; Visit Provider Internal Medicine | DX: Z51.81 Encounter for therapeutic drug level monitoring (principal); Z79.01 Long term (current) use of anticoagulants | CPT/HCPCS: 85610; G0463 ==

== ENCOUNTER 2024-04-09 07:15 | Outpatient (RCR) | payer MEDICARE, SELFPAY ==
--- NOTE | 2024-02-13 | CR1_ITS ---
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
--- NOTE | 2024-02-18 09:50 | CR1_ITS ---
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
--- NOTE | 2024-03-12 11:00 | CR1_ITS ---
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
--- NOTE | 2024-04-09 11:54 | CR1_ITS ---
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
== END 2024-04-09 11:53 | disposition home or self-care (01) ==
LOC: CR 07:15
PROVIDERS: PCP Internal Medicine; Visit Provider Internal Medicine
DX: Z95.5 Presence of coronary angioplasty implant and graft (principal)
CPT/HCPCS: 93798

== ENCOUNTER 2024-05-03 00:47 | Outpatient (RCR) | payer MEDICARE, SELFPAY | END 2024-05-31 23:17 | disposition home or self-care (01) | LOC: MM 00:47 | PROVIDERS: PCP Internal Medicine; Visit Provider Internal Medicine | DX: Z51.81 Encounter for therapeutic drug level monitoring (principal); Z79.01 Long term (current) use of anticoagulants ==

== ENCOUNTER 2024-06-01 01:19 | Outpatient (RCR) | payer MEDICARE, SELFPAY | END 2024-07-01 23:36 | disposition home or self-care (01) | LOC: MM 01:19 | PROVIDERS: PCP Internal Medicine; Visit Provider Internal Medicine | DX: Z51.81 Encounter for therapeutic drug level monitoring (principal); Z79.01 Long term (current) use of anticoagulants | CPT/HCPCS: 85610; G0463 ==

== ENCOUNTER 2024-07-02 10:16 | Outpatient (RCR) | payer MEDICARE, SELFPAY | END 2024-07-31 23:59 | disposition home or self-care (01) | LOC: MM 10:16 | PROVIDERS: PCP Internal Medicine; Visit Provider Internal Medicine | DX: Z51.81 Encounter for therapeutic drug level monitoring (principal); Z79.01 Long term (current) use of anticoagulants; I48.91 Unspecified atrial fibrillation | CPT/HCPCS: 85610; G0463 ==

== ENCOUNTER 2024-08-01 10:34 | Outpatient (RCR) | payer MEDICARE, SELFPAY | END 2024-08-31 09:34 | disposition home or self-care (01) | LOC: MM 10:34 | PROVIDERS: PCP Internal Medicine; Visit Provider Internal Medicine | DX: Z51.81 Encounter for therapeutic drug level monitoring (principal); Z79.01 Long term (current) use of anticoagulants ==

== ENCOUNTER 2024-09-02 00:12 | Outpatient (RCR) | payer MEDICARE, SELFPAY | END 2024-10-01 14:52 | disposition home or self-care (01) | LOC: MM 00:12 | PROVIDERS: PCP Internal Medicine; Visit Provider Internal Medicine | DX: Z51.81 Encounter for therapeutic drug level monitoring (principal); Z79.01 Long term (current) use of anticoagulants | CPT/HCPCS: 85610; G0463 ==

== ENCOUNTER 2024-10-04 00:45 | Outpatient (RCR) | payer MEDICARE, SELFPAY | END 2024-10-29 10:36 | disposition home or self-care (01) | LOC: MM 00:45 | PROVIDERS: PCP Internal Medicine; Visit Provider Internal Medicine | DX: Z51.81 Encounter for therapeutic drug level monitoring (principal); Z79.01 Long term (current) use of anticoagulants | CPT/HCPCS: 85610; G0463 ==

== ENCOUNTER 2024-10-31 07:32 | Outpatient (RCR) | payer MEDICARE, SELFPAY | END 2024-11-26 13:35 | disposition home or self-care (01) | LOC: MM 07:32 | PROVIDERS: PCP Internal Medicine; Visit Provider Internal Medicine | DX: Z51.81 Encounter for therapeutic drug level monitoring (principal); Z79.01 Long term (current) use of anticoagulants; I48.91 Unspecified atrial fibrillation | CPT/HCPCS: 85610; G0463 ==

== ENCOUNTER 2024-11-30 04:26 | Outpatient (RCR) | payer MEDICARE, SELFPAY | END 2024-12-29 15:18 | disposition home or self-care (01) | LOC: MM 04:26 | PROVIDERS: PCP Internal Medicine; Visit Provider Internal Medicine | DX: Z51.81 Encounter for therapeutic drug level monitoring (principal); Z79.01 Long term (current) use of anticoagulants | CPT/HCPCS: 85610; G0463 ==

== ENCOUNTER 2024-12-13 09:18 | Outpatient (OUT) | payer MEDICARE, SELFPAY ==
[2024-12-13 09:43] LABS: Basophils Absolute Auto 0.1 10^3/uL (0.0-0.1); Basophils Percent Auto 0.9 % (0.2-2.0); Eosinophils Absolute Auto 0.1 10^3/uL (0.0-0.7); Eosinophils Percent Auto 1.7 % (0.9-7.0); Hematocrit 46.3 % (42.0-54.0); Hemoglobin 15.6 g/dL (14.0-18.0); Immature Granulocytes Abs Auto 0.03 10^3/uL (0.00-0.03); Immature Granulocytes Pct Auto 0.5 % (0.0-0.5); Lymphocytes Absolute Auto 1.2 10^3/uL (1.2-3.8); Lymphocytes Percent Auto 18.8 % (20.5-60.0); Mean Corpuscular HGB Conc 33.7 g/dL (29.9-35.2); Mean Corpuscular Hemoglobin 32.6 pg (25.9-34.0); Mean Corpuscular Volume 96.9 fL (80.0-94.0); Monocytes Absolute Auto 0.6 10^3/uL (0.3-0.8); Monocytes Percent Auto 9.2 % (1.7-12.0); Neutrophils Absolute Auto 4.6 10^3/uL (1.4-6.5); Neutrophils Percent Auto 68.9 % (43.0-75.0); Platelet Count 193 10^3/uL (150-450); Red Blood Count 4.78 10^6/uL (4.70-6.10); White Blood Count 6.6 10^3/uL (4.0-11.0)
--- OUTSIDE RECORDS SUMMARY | 2024-12-13 09:43 | XMS_ITS | CCD ---
Author Organization [facility] Care Team Providers [facility] Director Name Role Phone DOMINGO PATTERSON Primary Care [...] BALL, DR BURROUGHS Admitting Unavailable BALL, DR BURROUGSH Attending Unavailable BALL, DR BURROUGHS Consulting Unavailable BALL, DR BURROUGHS Primary Care Unavailable WEST, DR LEDA Dennis Consulting Unavailable FAWWAD, DA SILVA H Attending Unavailable BALL, DR BURROUGHS Primary Care Unavailable FAWWAD, DA SILVA H Admitting Unavailable FAWWAD, DA SILVA H Attending Unavailable DR DOMINGO PATTERSON Primary Care Unavailable SHAIKH Reilly MORRELL Admitting Unavailable DR DOMINGO PATTERSON Primary Care Unavailable SHAIKH Reilly MORRELL Admitting Unavailable SHAIKH Reilly MORRELL Attending Unavailable DO Domingo Patterson Primary Care Provider [phone] MD Yolanda Barrientos Attending Provider [phone] MD Vic Aquino Attending Provider DO Ying Silva Attending Provider Domingo Patterson Primary Care Unavailable Yolanda Barrientos Admitting Unavailable Yolanda Barrientos Attending Unavailable Domingo Patterson Primary Care Unavailable Vic Aquino Admitting Unavailable Vic Aquino Attending Unavailable Ying Silva Admitting Unavailable Ying Silva Attending Unavailable Domingo Patterson Primary Care Unavailable DO Domingo Patterson Primary Care Provider Domingo Patterson MD Primary Care Provider RUI NOVOA Attending Unavailable RUI NOVOA Attending Unavailable RUI NOVOA Attending Unavailable WILEY RAMOS Attending Unavailable Allergies Allergy Classification Reported Allergen(s) Allergy Type Date of Onset Reaction(s) Facility HMG-CoA Reductase Inhibitors (statins) (2 sources) atorvastatin Drug Allergy 01-22-20 24 Gastrointestinal Upset [facility] (10 sources) atorvastatin Drug Allergy 01-15-20 24 Unknown, Gastrointestinal [facility] (1 source) patient allergy list reviewed by nurse or physicia Propensity to adverse reactions 05-21-20 13 Comment:Done AIM Other (9 sources) Zydgfac-YEU-GoT Reductase Inhibitor; Translations: [Cbjhtme-EYR-Zt A Reductase Inhibitor] Allergy to substance 01-15-20 Gastrointestinal Upset [facility] (1 source) atorvastatin Drug Allergy 02-09-20 [facility] Repository (1 source) rosuvastatin Drug Allergy 11-27-19 25 Muscle Pain [facility] Medications Current Medications Medication Drug Class(es) Dates Sig (Normalized) Sig (Original) ALPRAZolam 0.25 mg oral tablet (20 sources) Benzodiazepine Start: 03-08-2024 End: 10-03-2024 take 1 tablet by mouth twice daily as needed for anxiety Alprazolam 0.25 mg tablet Active 0.25 MG PO Twice daily as needed for anxiety 60 October 03, 2024 10:06am Start: 12-04-2023 End: 03-08-2024 take 1 tablet by mouth every six hours as needed Alprazolam 0.25 mg tablet Discontinued 0.25 MG PO Every 6 hours as needed February 09, 2024 11:45am March 08, 2024 10:26pm Start: 08-21-2023 ALPRAZolam 0.2 5 mg TAKE [...] take 1 tablet by mouth twice daily as needed for anxiety Alprazolam (Xanax) 0.25 mg Tablet Discontinued 0.25 MG PO Twice daily as needed for Anxiety November 02, 2021 1:00am December 04, 2023 10:43am Start: 09-30-2019 Xanax Oral, TI D, Refills(s) 0 Start Date: 09/30/19 Status: Ordered clopidogrel 75 mg oral tablet (20 sources) P2Y12 Platelet Inhibitor Start: 08-13-2024 take 1 tablet by mouth once daily Clopidogrel 75 mg tablet Active 75 MG PO Daily August 13, 2024 9:56am Start: 07-16-2024 End: 08-13-2024 take 1 tablet by mouth once daily Clopidogrel 75 mg tablet Discontinued 0 .ROUTE .COMPLEX July 16, 2024 9:36am August 13, 2024 9:57am TAKE 1 TABLET BY MOUTH DAILY Start: 01-28-2024 End: 07-16-2024 take 1 tablet by mouth once daily Clopidogrel (Plavix) 75 mg tablet Discontinued 75 MG PO Daily 90 April 19, 2024 11:15am July 16, 2024 9:36am 24 hr isosorbide mononitrate 30 mg extended release oral tablet (20 sources) Nitrate Vasodilator Start: 08-13-2024 take 1 tablet by mouth once daily, then take 1 tablet by mouth every twenty-four hours Isosorbide Mononitrate 30 mg tablet extended release 24 hr Active 30 MG PO Daily August 13, 2024 9:57am Start: 01-30-2024 End: 08-13-2024 take 1 tablet by mouth once daily Isosorbide Mononitrate 30 mg tablet extended release 24 hr Discontinued 0 .ROUTE .COMPLEX January 30, 2024 6:15pm August 13, 2024 9:57am TAKE 1 TABLET BY MOUTH EVERY DAY Start: 01-08-2024 End: 01-30-2024 take 1 tablet by mouth once daily in the morning, then take 1 tablet by mouth every twenty-four hours Isosorbide Mononitrate 30 mg tablet extended release 24 hr Discontinued 30 MG PO Every morning January 22, 2024 12:00am January 30, 2024 1:19pm losartan potassium 50 mg oral tablet (20 sources) Angiotensin 2 Receptor Fabiola Start: 08-13-2024 take 1 tablet by mouth twice daily Losartan 50 mg tablet Active 50 MG PO Twice daily August 13, 2024 9:57am Start: 07-20-2024 End: 08-13-2024 take 1 tablet by mouth twice daily Losartan 50 mg tablet Discontinued 0 .ROUTE .COMPLEX 180 July 20, 2024 1:07pm August 13, 2024 9:57am TAKE 1 TABLET BY MOUTH TWICE DAILY Start: 04-19-2024 End: 07-20-2024 take 1 tablet by mouth twice daily Losartan 50 mg tablet Discontinued 50 MG PO Twice daily 180 April 19, 2024 12:00am July 20, 2024 1:07pm Start: 12-25-2023 End: 04-19-2024 take 1 tablet by mouth twice daily Losartan 25 mg tablet Discontinued 25 MG PO Twice daily 180 December 25, 2023 5:13pm April 19, 2024 11:15am Start: 10-28-2023 End: 12-25-2023 take 1 tablet by mouth once daily Losartan 25 mg tablet Discontinued 0 .ROUTE .COMPLEX 90 October 28, 2023 2:37pm December 25, 2023 5:15pm TAKE 1 TABLET BY MOUTH EVERY DAY Start: 10-28-2023 End: 12-25-2023 take 1 tablet by mouth once daily Losartan Discontinued 0 .ROUTE .COMPLEX October 28, 2023 2:37pm December 25, 2023 5:15pm TAKE 1 TABLET BY MOUTH EVERY DAY Start: 10-28-2023 take 1 tablet by daryl th once daily Losartan Active 0 .ROUTE .COMPLEX 90 October 28, 2023 2:37pm TAKE 1 TABLET BY MOUTH EVERY DAY Start: 11-02-2021 End: 10-28-2023 take 1 tablet by mouth once daily in the morning Losartan 25 mg tablet Discontinued 25 MG PO Every morning November 02, 2021 1:00am October 28, 2023 2:37pm Start: 09-30-2019 losartan Oral, Daily, Refills(s) 0 Start Date: 09/30/19 Status: Ordered metoprolol tartrate 75 mg oral tablet (20 sources) beta-Adrenergic Fabiola Start: 10-14-2024 take 1 tablet by mouth twice daily at mealtime Metoprolol Tartrate 75 mg tablet Active 0 .ROUTE .COMPLEX 180 October 14, 2024 9:56am TAKE 1 TABLET BY MOUTH TWICE DAILY WITH FOOD Start: 10-28-2023 End: 01-08-2024 take 1 tablet by mouth twice daily at mealtime Metoprolol Tartrate 75 mg tablet Discontinued 0 .ROUTE .COMPLEX 180 October 28, 2023 2:36pm January 08, 2024 4:34pm TAKE 1 TABLET BY MOUTH TWICE DAILY WITH FOOD Start: 07-29-2023 End: 10-14-2024 take 1 tablet by mouth twice daily Metoprolol Tartrate 75 mg tablet Discontinued 75 MG PO Twice daily 180 January 08, 2024 4:33pm October 14, 2024 9:56am Start: 11-02-2021 End: 10-28-2023 Metoprolol Tartrate 50 mg ta blet Discontinued 75 MG PO Twice daily November 02, 2021 1:00am October 28, 2023 2:37pm Start: 11-02-2021 End: 10-28-2023 take 75 mg by mouth twice daily Metoprolol Tartrate Di scontinued 75 MG PO Twice daily November 02, 2021 1:00am October 28, 2023 2:37pm Start: 09-30-2019 take 1 mg by mouth once daily metoprolol 25 mg ER Tab mg tab(s), Oral, Daily, Refills(s) 0 Start Date: 09/30/19 Status: Ordered metoprolol tartr ate (Lopressor) 50 MG tablet every 12 (twelve) hours Active Multi Vitamin+ (2 sources) Start: 09-30-2019 Multi Vitamin+ Refill(s) 0 Start Date: 09/30/19 Status: Ordered multivitamin (Theragran) tablet (7 sources) take 1 tablet by mouth once daily multivitamin (Theragran) tablet Take 1 tablet by mouth Daily Active Multivitamin preparation (20 sources) Start: 01-15-2024 take 1 tablet by mouth once daily Multivitamin Active 1 TAB PO every day at noon January 15, 2024 12:00am Start: 01-15-2024 take 1 tablet by daryl th once daily Multivitamin Active 1 TAB PO Daily January 15, 2024 12:00am Start: 11-02-2021 End: 12-04-2023 take 1 tablet by mouth once daily Multivitamin Discontinued 1 TAB PO Daily November 02, 2021 1:00am December 04, 2023 10:44am Multivitamin Act josh Multivitamin tablet (1 source) Start: 01-15-2024 take 1 tablet by mouth once daily Multivitamin tablet Active 1 TAB PO every day at noon January 15, 2024 12:00am [place] 3 (7 sources) [place] 3 Active Miami-3 (2 sources) Start: 09-30-2019 [place]-3 Refill (s) 0 Start Date: 09/30/19 Status: Ordered paxlovid (300/100) 20 x 150 mg & 10 x 100mg tablet therapy pack (3 sources) Start: 12-03-2022 take 3 tablets by mouth every twelve hours Paxlovid (300/100) 20 x 150 MG & 10 x 100MG 3 tablets Orally Twice a day for 5 day(s) Nov, Active warfarin sodium 4 mg oral tablet (20 sources) Vitamin K Antagonist Start: 07-19-2024 take 1 tablet by mouth once daily Warfarin 4 mg tablet Active 0 .ROUTE .COMPLEX 135 July 19, 2024 10:44am TAKE 1 & 1/2 (ONE AND ONE-HALF) TABLETS BY MOUTH ONCE DAILY Start: 11-02-2021 take 6 mg by mouth t wo times weekly Warfarin 4 mg tablet Active 6 MG PO Twice a Week November 02, 2021 1:00am Tue and Thurs Start: 11-02-2021 End: 07-19-2024 take 1 tablet by mouth five times weekly Warfarin 4 mg tablet Discontinued 4 MG PO 5 TIMES PER WEEK November 02, 2021 1:00am July 19, 2024 10:44am Sun/Mon/Fri/Fri/Sat Start: 11-02-2021 take 6 mg by mouth t wo times weekly Warfarin Active 6 MG PO Twice a Week November 02, 2021 1:00am Tue and Thurs Start: 09-30-2019 warfarin Oral, Daily, Refills(s) 0 Start Date: 09/30/19 Status: Ordered take 1 tablet by daryl th once daily warfarin (Coumadin) 4 MG tablet TAKE 1 & 1/2 (ONE AND ONE-HALF) [...] Drug Class(es) Dates Sig (Normalized) Sig (Original) aspirin 81 mg delayed release oral tablet (20 sources) Platelet Aggregation Inhibitor, Nonsteroidal Anti-inflammatory Drug Start: 11-02-2021 End: 04-19-2024 Aspirin (Timmy Low Dose Aspirin) 81 mg Tablet,Delayed Release (Dr/Ec) Discontinued 81 MG PO Every morning November 02, 2021 1:00am April 19, 2024 10:41am Start: 09-30-2019 aspirin Refill s(s) 0 Start Date: 09/30/19 Status: Ordered Aspirin 81 Activ e cephalexin 500 mg oral capsule (13 sources) Cephalosporin Antibacterial Start: 11-07-2021 End: 12-04-2023 take 1 capsule by mouth every twelve hours Cephalexin 500 mg capsule Discontinued 500 MG PO Q12H 4 2 November 07, 2021 1:00am December 04, 2023 10:44am 1 ml methylPREDNISolone acetate 40 mg/ml injection (4 sources) Corticosteroid Start: 07-05-2024 End: 07-05-2024 methylPREDNISolone acetate (DEPO-Medrol) injection 40 mg Start: 07-05-2024 End: 07-05-2024 40 mg, Intra-articular, Once PRN Procedure, Starting on Fri07/05/24 at 1039, For 1 dose Multivitamin Tablet (1 source) Start: 11-02-2021 End: 12-04-2023 take 1 tablet by mouth once daily Multivitamin Tablet Discontinued 1 TAB PO Daily November 02, 2021 1:00am December 04, 2023 10:44am predniSONE 20 mg oral tablet (3 sources) Start: 06-15-2024 End: 08-13-2024 take 1 tablet by mouth twice daily Prednisone 20 mg tablet Discontinued 20 MG PO Twice daily 06 05June 15, 2024 5:31pm August 13, 2024 9:56am Start: 06-14-2024 End: 06-15-2024 Prednisone 20 mg tablet Disc ontinued 20 MG PO Twice daily 06 05June 14, 2024 12:00am June 15, 2024 5:31pm 1 tab tid w/ food x 3 days, then bid w/ food x 3 days, then qd w/ food x 3 days rosuvastatin calcium 10 mg oral tablet (3 sources) HMG-CoA Reductase Inhibitor Start: 04-19-2024 End: 06-14-2024 take 1 tablet by mouth once daily Rosuvastatin 10 mg tablet Discontinued 10 MG PO Daily April 19, 2024 12:00am June 14, 2024 1:51pm Triamcinolone (7 sources) Corticosteroid Start: 10-09-2021 Kenalog -40 mg Oct, 40 mg Problems Active Problems Problem Classification Problem Date Documented Da te Episodic/Chronic Acute bronchitis (1 source) Acute bronchitis; Translations: [Acute bronchitis due to other specified organisms] Episodic Acute posthemorrhagic anemia (1 source) Acute posthemorrhagic anemia; Translations: [Acute posthemorrhagic anemia] Episodic Anxiety disorders (20 sources) Anxiety; Translations: [Generalized anxiety disorder] 09-30-2019 Chronic Cardiac dysrhythmias (20 sources) Permanent atrial fibrillation; Translations: [Permanent atrial fibrillation] 12-15-2023 Chronic Cataract (2 sources) Other secondary cataract, bilateral; Translations: [Artificial lens present] Onset: 08-13-2022 09-02-2024 Chronic Coronary atherosclerosis and other heart disease (20 sources) Coronary arteriosclerosis; Translations: [Atherosclerotic heart disease of [place] coronary artery without angina pectoris] Onset: 03-23-2019 Chronic Comment on above: CABG x 2m 2012, PCI/ stent RCA: 12/2023,Echo: LVEF 50%, dilated RV, JAVIER, RVSP 55 - 12/2023,Stress: NM w/ reversible defect inferolateral, anterolateral wall - 12/2023 Coronary atherosclerosis and other heart disease (6 sources) Stented coronary artery; Translations: [Presence of coronary angioplasty implant and graft] Onset: 01-22-2024 01-28-2024 Episodic Disorders of lipid metabolism (20 sources) Hyperlipidemia; Translations: [Pure hypercholesterolemia] Onset: 08-01-2018 09-30-2019 Chronic Essential hypertension (20 sources) Hypertensive disorder; Translations: [Essential (primary) hypertension] [...] knee, initial encounter] Episodic Nonspecific chest pain (20 sources) Chest pain; Translations: [Chest pain, unspecified] 12-15-2023 Episodic Osteoarthritis (20 sources) Arthritis of right wrist; Translations: [Primary osteoarthritis, right wrist] 12-05-2023 Chronic Other aftercare (1 source) Long-term current use of anticoagulant; 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] Onset: 11-27-2021 Episodic Other aftercare (5 sources) Encounter for therapeutic drug level monitoring; Translations: [ENC THERAPEUTC DRUG LEVL MONITORING] Onset: 12-28-2022 Episodic Other aftercare (11 sources) 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; Translations: [Long-term (current) use of anticoagulants] Onset: 01-29-2023 Episodic Other aftercare (1 source) Long-term current use of drug therapy; Translations: [Other chcf (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] Episodic Other aftercare (3 sources) Anticoagulant effect; 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] Episodic Other aftercare (2 sources) Other chcf (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; Translations: [Long-term (current) use of other medications] Episodic Other aftercare (2 sources) Drug therapy finding; Translations: [Other joint sealer (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] 11-26-2024 Episodic Other circulatory disease (1 source) Cardiovascular symptoms; Translations: [Other specified symptoms and signs involving the circulatory and respiratory systems] Episodic Other ear and sense organ disorders (1 source) Sensorineural hearing loss; Translations: [Unspecified sensorineural hearing loss] Chronic Other ear and sense organ disorders (1 source) Tinnitus; Translations: [Tinnitus, unspecified ear] Episodic Other eye disorders (1 source) Posterior vitreous detachment of right eye; Translations: [Vitreous degeneration, right eye] 09-02-2024 Chronic Other gastrointestinal disorders (3 sources) Irritable bowel [...] [Dyspnea, unspecified] Episodic Other lower respiratory disease (8 sources) Dyspnea on exertion; Translations: [Other forms of dyspnea] 12-15-2023 Episodic Other lower respiratory disease (15 sources) Other forms of dyspnea; Translations: [Other respiratory abnormalities] Onset: 01-22-2024 12-15-2023 Episodic Other non-traumatic joint disorders (2 sources) Arthritis of right knee 07-05-2024 Chronic Other non-traumatic joint disorders (1 source) Pain in wrist; Translations: [Pain in right wrist] Episodic Other non-traumatic joint disorders (1 source) Arthralgia of the lower leg; Translations: [Pain in right knee] Episodic Other non-traumatic joint disorders (9 sources) Pain in left knee; Translations: [Pain in joint, lower leg] 12-05-2023 Episodic Other non-traumatic joint disorders (5 sources) Pain in right knee; Translations: [Pain in joint, lower leg] 06-19-2024 Episodic Other nutritional; endocrine; and metabolic disorders [...] conditions (not mental disorders or infectious disease) (20 sources) Raised prostate specific antigen; Translations: [Elevated [...] spondylosis without myelopathy] Chronic Sprains and strains (2 sources) Sprain of left knee; Translations: [Sprain of other specified parts of left knee, initial encounter] 06-14-2024 Episodic Unclassified (2 sources) Asymptomatic microscopic hematuria [...] Test Name Value Interpretation Reference Range Facility No Panel Informationon 07-05 Rui Novoa NP 07/05/2024 10:40 AM L Inj/Asp: R knee on 07/05/2024 10:39 AM Indications: pain Details: 20 G needle, anterolateral approach Medications: 40 mg methylPREDNISolone acetate 40 MG/ML UTILIZING ASEPTIC TECHNIQUE PT GIVEN INJECTION IN RIGHT KNEE, NEUROVASC INTACT S/P INJ, TOLERATED WELL Procedure, treatment alternatives, risks and benefits explained, specific risks discussed. Consent was given by the patient. [facility] ECG 12 lead ECGon 01-28-2024 ECG 12 lead ECG [facility] [place] [address] [place] [address] Electrocardiograph Report Signed Patient: David Jama MR#: [id number] : 1945 Acct:[id number] Age/Sex: 78 / M ADM Date: 01/22/24 Loc: PS Room: Type: [facility] Attending Dr: Vic Aquino MD Ordering Provider: Vic Aquino MD Date of Service: 01/28/24 ECG/ECG 12 lead ECG: Post Angioplasty Procedure Copies to: Test Reason : Blood Pressure : / mmHG Vent. Rate : 064 BPM Atrial Rate : 057 BPM P-R Int : 000 ms QRS Dur : 074 ms QT Int : 380 ms P-R-T Axes : 000 -08 -60 degrees QTc Int : 392 ms Atrial fibrillation Low voltage QRS Nonspecific T wave abnormality , probably digitalis effect Abnormal ECG No previous ECGs available Confirmed by Colton Etienne ([id number]) on 01/29/2024 10:25:39 AM Referred By: Electronically Signed By:Colton Etienne Transcribed By: MUS Signed By Colton Etienne MD 01/29/24 1025 Normal [facility] Activated partial thrombopla stin time (aPTT) in platelet poor plasma by coagulation aOrdered By: Yolanda Barrientos on 01-22-2024 aPTT Coag (PPP) [Time] 35.6 s 25.1-36.5 [facility] Comment on above: A hematocrit value g reater than 55% may lead to inaccurate results in coagulation testing. Patients having hematocrit values >55% require a special collection tube for coagulation studies. Please contact the laboratory at [phone] for redraw instructions. Automated basophil %Ordered By: Yolanda Barrientos on 01-22-2024 Basophils/100 WBC (Bld) 0.8 % . [facility] Comment on above: Performed By: #### P P, CBC, CREAT, BUN, LYTES, LIPID #### [place] [id number] [facility] Automated basophil countOrde red By: Yolanda Barrientos on 05-23-2024 Basophils (Bld) [#/Vol] 0.0 10*3/uL 0.0-0.2 [facility] Comment on above: Result Comment: PERF ORMED BY: [place] [address] PATHOLOGIST CANDLES POURER ERICK AMARO M.D. Performed By: #### P P, CBC, CREAT, BUN, LYTES, LIPID #### [address] Automated blood monocyte cou ntOrdered By: Yolanda Barrientos on 01-22-2024 Monocytes (Bld) [#/Vol] 0.6 10*3/uL 0.0-0.8 [facility] Comment on above: Performed By: #### P P, CBC, CREAT, BUN, LYTES, LIPID #### [address] Automated eosinophil %Ordere d By: Yolanda Barrientos on 01-22-2024 Eosinophils/100 WBC (Bld) 1.4 % . [facility] Comment on above: Performed By: #### P P, CBC, CREAT, BUN, LYTES, LIPID #### [address] Automated eosinophil countOr dered By: Yolanda Barrientos on 01-22-2024 Eosinophils (Bld) [#/Vol] 0.1 10*3/uL 0.0-0.45 [facility] Comment on above: Performed By: #### P P, CBC, CREAT, BUN, LYTES, LIPID #### [address] Automated monocyte %Ordered By: Yolanda Barrientos on 01-22-2024 Monocytes/100 WBC (Bld) 8.5 % . [facility] Comment on above: Performed By: #### P P, CBC, CREAT, BUN, LYTES, LIPID #### [address] Automated neutrophil %Ordere d By: Yolanda Barrientos on 01-22-2024 Neutrophils/100 WBC (Bld) 70.1 % . [facility] Comment on above: Performed By: #### P P, CBC, CREAT, BUN, LYTES, LIPID #### [facility] [address] [place] [address] [place] Carbon dioxide, total [Moles /volume] in Serum or PlasmaOrdered By: Yolanda Barrientos on 01-22-2024 CO2 [Moles/Vol] 30.9 mmol/L 21.0-31.0 [facility] Comment on above: Performed By: #### P P, CBC, CREAT, BUN, LYTES, LIPID #### [facility] [address] [place] [address] [place] Chloride [Moles/volume] in S joana or PlasmaOrdered By: Yolanda Barrientos on 01-22-2024 Chloride [Moles/Vol] 103 mmol/L 98-107 [facility] Comment on above: Performed By: #### P P, CBC, CREAT, BUN, LYTES, LIPID #### [facility] [address] [place] [address] [place] Cholesterol [Mass/volume] in Serum or PlasmaOrdered By: Yolanda Barrientos on 01-22-2024 Cholesterol [Mass/Vol] 214 mg/dL High 140-200 [facility] Comment on above: Chol less than 200 m g/dl low riskChol 201-239 mg/dl borderline riskChol 240 mg/dl and greater high risk Result Comment: Chol less than 200 mg/dl low risk Chol 201-239 mg/dl borderline risk Chol 240 mg/dl and greater high risk Performed By: #### P P, CBC, CREAT, BUN, LYTES, LIPID #### [facility] [address] [place] [id number] [place] Cholesterol in LDL Calc [Mas s/Vol]Ordered By: Yolanda Barrientos on 01-22-2024 Cholesterol in LDL [Mass/Vol] 149 mg/dL High 0-100 [facility] Comment on above: LDL ATP III CLASSIFI CATIONLDL less than 100 mg/dL OptimalLDL 100-129 mg/dL Near or above optimalLDL 130-159 mg/dL Borderline highLDL 160-189 mg/dL HighLDL greater than 189 mg/dL Very high Cholesterol in VLDL Calc [Ma ss/Vol]Ordered By: Yolanda Barrientos on 01-22-2024 Cholesterol in VLDL [Mass/Vol] 14 mg/dL [facility] Coagulation Profileon 2023 aPTT Coag (Bld) [Time] 35.6 s Normal 25.1-36.5 [facility] Comment on above: Result Comment: A he matocrit value greater than 55% may lead to inaccurate results in coagulation testing. Patients having hematocrit values >55% require a special collection tube for coagulation studies. Please contact the laboratory at [phone] for redraw instructions. PERFORMED BY: [place] [address] PATHOLOGIST CANDLES POURER ERICK AMARO M.D. Performed By: #### P P, CBC, CREAT, BUN, LYTES, LIPID #### [address] Complete Blood Count Auto Di ffon 01-22-2024 Mean Corpuscular HGB Conc 33.7 g/dL Normal 32.5-35.6 [facility] Comment on above: Performed By: #### P P, CBC, CREAT, BUN, LYTES, LIPID #### [address] NRBC% 0.1 /100{WBC} Normal 0-0.5 [facility] Comment on above: Performed By: #### P P, CBC, CREAT, BUN, LYTES, LIPID #### [address] Creatinineon 01-22-2024 GFR/1.73 sq M.predicted MDRD (S/P/Bld) [Vol rate/Area] mL/min/{1.73_m2} Normal [facility] Comment on above: Performed By: #### P P, CBC, CREAT, BUN, LYTES, LIPID #### [address] Creatinine [Mass/volume] in Serum or PlasmaOrdered By: Yolanda Barrientos on 01-22-2024 Creatinine [Mass/Vol] 0.99 mg/dL 0.70-1.30 [facility] Comment on above: Performed By: #### P P, CBC, CREAT, BUN, LYTES, LIPID #### [facility] [address] [place] [address] ECG 12 lead ECGon 01-22-2024 ECG 12 lead ECG [facility] [place] [address] [place] [address] Electrocardiograph Report Signed Patient: David Jama MR#: [id number] : 1945 Acct:[id number] Age/Sex: 78 / M ADM Date: 01/22/24 Loc: Room: Type: [facility] Attending Dr: Vic Aquino MD Ordering Provider: Yolanda Barrientos MD Date of Service: 01/22/24 ECG/ECG 12 lead ECG: [facility] Copies to: Test Reason : Blood Pressure : / mmHG Vent. Rate : 065 BPM Atrial Rate : 090 BPM P-R Int : 000 ms QRS Dur : 080 ms QT Int : 388 ms P-R-T Axes : 000 039 -25 degrees QTc Int : 403 ms Atrial fibrillation Abnormal QRS-T angle, consider primary T wave abnormality Abnormal ECG When compared with ECG of 15-JAN-2024 15:00, No significant change was found Confirmed by Yolanda Barrientos ([id number]) on 01/23/2024 1:13:54 PM Referred By: BIANCA Electronically Signed By:Yolanda Barrientos Transcribed By: MUS Signed By Yolanda Barrientos MD 4 1313 Normal [facility] Erythrocyte distribution wid th [Ratio] by Automated countOrdered By: Yolanda Barrientos on 01-22-2024 Erythrocyte distribution width (RBC) [Ratio] 13.7 % 12.0-14.8 [facility] Comment on above: Performed By: #### P P, CBC, CREAT, BUN, LYTES, LIPID #### [facility] [address] [place] [address] Erythrocytes [#/volume] in B lood by Automated countOrdered By: Yolanda Barrientos on 01-22-2024 RBC (Bld) [#/Vol] 4.75 10*6/uL 3.90-5.60 [facility] Comment on above: Performed By: #### P P, CBC, CREAT, BUN, LYTES, LIPID #### [facility] [address] [place] [address] Hematocrit [Volume Fraction] of Blood by Automated countOrdered By: Yolanda Barrientos on 01-22-2024 Hematocrit (Bld) [Volume fraction] 45.5 % 38.8-50.0 [facility] Comment on above: Performed By: #### P P, CBC, CREAT, BUN, LYTES, LIPID #### [facility] [address] [place] [address] Hemoglobin [Mass/volume] in BloodOrdered By: Yolanda Barrientos on 01-22-2024 Hemoglobin (Bld) [Mass/Vol] 15.4 g/dL 13.0-17.0 [facility] Comment on above: Performed By: #### P P, CBC, CREAT, BUN, LYTES, LIPID #### [facility] [address] [place] [address] INR in Platelet poor plasma by Coagulation assayOrdered By: Yolanda Barrientos on 01-22-2024 INR Coag (PPP) [Relative time] 2.1 {INR} [facility] Comment on above: INR Therapeutic Rang e A) Pre- and Peroperative OAT started two weeks before surgery. NOT HIP SURGERY: 1.5 - 2.5 HIP SURGERY: 2 - 3B) Primary and secondary prevention of venous THROMBOSIS: 2 - 3C) Active venous thrombosis, pulmonary embolismand prevention of recurrent venous thrombosis: 2 - 3D) Prevention of arterial thromboembolismincluding patients with mechanical heart valves: 3 - 4.5 Result Comment: INR Therapeutic Range A) Pre- [...] 3 - 4.5 Performed By: #### P P, CBC, CREAT, BUN, LYTES, LIPID #### [facility] [address] Leukocytes [#/volume] correc cee for nucleated erythrocytes in Blood by Automated counOrdered By: Yolanda Barrientos on 01-22-2024 WBC corrected for nucl RBC Auto (Bld) [#/Vol] 6.5 10*3/uL 4.1-10.5 [facility] Leukocytes [#/volume] in Blo od by Automated countOrdered By: Yolanda Barrientos on 01-22-2024 WBC (Bld) [#/Vol] 6.5 10*3/uL 4.1-10.5 [facility] Comment on above: Performed By: #### P P, CBC, CREAT, BUN, LYTES, LIPID #### [address] Lipid Panelon 01-22-2024 LDL Cholesterol,Calculated 149 mg/dL High 0-100 [facility] Comment on above: Result Comment: LDL ATP III CLASSIFICATION LDL less than 100 mg/dL Optimal LDL 100-129 mg/dL Near or above optimal LDL 130-159 mg/dL Borderline high LDL 160-189 mg/dL High LDL greater than 189 mg/dL Very high Performed By: #### P P, CBC, CREAT, BUN, LYTES, LIPID #### [address] Triglyceride w/Reflex 72 mg/dL Normal 0-149 [facility] Comment on above: Result Comment: TRIG ATP III CLASSIFICATION TRIG less than 150 mg/dL Normal TRIG 150-199 mg/dL Borderline high TRIG 200-500 mg/dL High TRIG greater than 500 mg/dL Very high Standard traceable to the Center for Disease Conrtrol and Prevention (CDC) test method. Performed By: #### P P, CBC, CREAT, BUN, LYTES, LIPID #### [facility] [address] VLDL CHOLESTEROL 14 mg/dL Normal [facility] Comment on above: Performed By: #### P P, CBC, CREAT, BUN, LYTES, LIPID #### [facility] [address] Lymphocytes [#/volume] in Bl ood by Automated countOrdered By: Yoalnda Barrientos on 01-22-2024 Lymphocytes (Bld) [#/Vol] 1.2 10*3/uL 1.00-4.8 [facility] Comment on above: Performed By: #### P P, CBC, CREAT, BUN, LYTES, LIPID #### [facility] [address] [place] [address] [place] Lymphocytes/100 leukocytes i n Blood by Automated countOrdered By: Yolanda Barrientos on 01-22-2024 Lymphocytes/100 WBC (Bld) 19.2 % . [facility] Comment on above: Performed By: #### P P, CBC, CREAT, BUN, LYTES, LIPID #### [address] MCH [Entitic mass] by Automa cee countOrdered By: Yolanda Barrientos on 01-22-2024 MCH (RBC) [Entitic mass] 32.3 pg 27.5-35.2 [facility] Comment on above: Performed By: #### P P, CBC, CREAT, BUN, LYTES, LIPID #### [address] MCHC Auto (RBC) [Mass/Vol]Or dered By: Yolanda Barrientos on 01-22-2024 MCHC (RBC) [Mass/Vol] 33.7 g/dL 32.5-35.6 [facility] MCV [Entitic volume] by Auto mated countOrdered By: Yolanda Barrientos on 01-22-2024 MCV (RBC) [Entitic vol] 95.8 fL 83.5-101 [facility] Comment on above: Performed By: #### P P, CBC, CREAT, BUN, LYTES, LIPID #### [place] [address] [place] Neutrophils [#/volume] in Bl ood by Automated countOrdered By: Yolanda Barrientos on 01-22-2024 Neutrophils (Bld) [#/Vol] 4.6 10*3/uL 1.8-7.7 [facility] Comment on above: Performed By: #### P P, CBC, CREAT, BUN, LYTES, LIPID #### [facility] [address] [place] [address] No Panel InformationOrdered By: Yolanda Barrientos on 01-22-2024 Estimated GFR (CKD-EPI) > 60.0 mL/Min [facility] Creatinine Clearance (Chem N/A [facility] Nucleated erythrocytes [Pres ence] in Blood by Automated countOrdered By: Yolanda Barrientos on 01-22-2024 Nucleated RBC Auto Ql (Bld) 0.1 /100{WBC} 0-0.5 [facility] Platelet mean volume [Entiti c volume] in Blood by Automated countOrdered By: Yolanda Barrientos on 01-22-2024 Platelet mean volume (Bld) [Entitic vol] 8.2 fL 6.6-10.1 [facility] Comment on above: Performed By: #### P P, CBC, CREAT, BUN, LYTES, LIPID #### [facility] [address] [place] [address] Platelets [#/volume] in Bloo d by Automated countOrdered By: Yolanda Barrientos on 01-22-2024 Platelets (Bld) [#/Vol] 175 10*3/uL 150-450 [facility] Comment on above: Performed By: #### P P, CBC, CREAT, BUN, LYTES, LIPID #### [facility] [address] [place] [address] Potassium [Moles/volume] in Serum or PlasmaOrdered By: Yolanda Barrientos on 01-22-2024 Potassium [Moles/Vol] 4.8 mmol/L 3.5-5.1 [facility] Comment on above: Performed By: #### P P, CBC, CREAT, BUN, LYTES, LIPID #### [facility] [address] [place] [address] Prothrombin time (PT)Ordered By: Yolanda Barrientos on 01-22-2024 PT Coag (PPP) [Time] 24.1 s High 9.0-12.9 [facility] Comment on above: A hematocrit value g reater than 55% may lead to inaccurate results in coagulation testing. Patients having hematocrit values >55% require a special collection tube for coagulation studies. Please contact the laboratory at [phone] for redraw instructions. Result Comment: A he matocrit value greater than 55% may lead to inaccurate results in coagulation testing. Patients having hematocrit values >55% require a special collection tube for coagulation studies. Please contact the laboratory at [phone] for redraw instructions. Performed By: #### P P, CBC, CREAT, BUN, LYTES, LIPID #### [facility] [address] Serum or plasma anion gap de terminationOrdered By: Yolanda Barrientos on 01-22-2024 Anion gap [Moles/Vol] 10.9 mmol/L 6.0-15.0 [facility] Comment on above: Performed By: #### P P, CBC, CREAT, BUN, LYTES, LIPID #### [facility] [address] Serum or plasma high density lipoprotein (HDL) cholesterol measurementOrdered By: Yolanda Barrientos on 01-22-2024 Cholesterol in HDL [Mass/Vol] 51 mg/dL [facility] Comment on above: HDL CHOL ATP-III CLA SSIFICATION Cardiovascular RiskHDL > or equal to 60 mg/dL LOWHDL < 40 mg/dL HIGH Result Comment: HDL CHOL ATP-III CLASSIFICATION Cardiovascular Risk HDL > or equal to 60 mg/dL LOW HDL < 40 mg/dL HIGH Performed By: #### P P, CBC, CREAT, BUN, LYTES, LIPID #### [facility] [address] Serum or plasma total choles terol/high density lipoprotein (HDL) cholesterol mass ratOrdered By: Yolanda Barrientos on 01-22-2024 Cholesterol.total/Chol esterol in HDL [Mass ratio] 4.2 {ratio} <5.0 [facility] Comment on above: Result Comment: PERF ORMED BY: [place] [address] PATHOLOGIST [employer] P[employer]ER ERICK AMARO M.D. Performed By: #### P P, CBC, CREAT, BUN, LYTES, LIPID #### [address] Sodium [Moles/volume] in Ser um or PlasmaOrdered By: Yolanda Barrientos on 01-22-2024 Sodium [Moles/Vol] 140 mmol/L 136-145 [facility] Comment on above: Performed By: #### P P, CBC, CREAT, BUN, LYTES, LIPID #### [address] Triglyceride [Mass/volume] i n Serum or PlasmaOrdered By: Yolanda Barrientos on 01-22-2024 Triglyceride [Mass/Vol] 72 mg/dL 0-149 [facility] Comment on above: TRIG ATP III CLASSIF ICATIONTRIG less than 150 mg/dL NormalTRIG 150-199 mg/dL Borderline highTRIG 200-500 mg/dL High TRIG greater than 500 mg/dL Very highStandard traceable to the Center for Disease Conrtrol and Prevention (CDC) test method. Urea nitrogen [Mass/volume] in Serum or PlasmaOrdered By: Yolanda Barrientos on 01-22-2024 Urea nitrogen [Mass/Vol] 17 mg/dL 7-25 [facility] Comment on above: Performed By: #### P P, CBC, CREAT, BUN, LYTES, LIPID #### [address] [facility] ECG *OFFICE ONLY*on 12-30 [facility] ECG *OFFICE ONLY* [facility] [place] [address] [place] [address] Electrocardiograph Report Signed Patient: David Jama MR#: [id number] : 1945 Acct:[id number] Age/Sex: 78 / M ADM Date: 01/15/24 Loc: EKGCARDIO Room: Type: [facility] Attending Dr: Yolanda Barrientos MD Ordering Provider: Yolanda Barrientos MD Date of Service: 01/15/24 ECG/[facility] ECG *OFFICE ONLY*: R94.39 - Abnormal result of other cardiovascular function... Copies to: Test Reason : Blood Pressure : / mmHG Vent. Rate : 076 BPM Atrial Rate : 000 BPM P-R Int : 000 ms QRS Dur : 078 ms QT Int : 350 ms P-R-T Axes : 000 023 -49 degrees QTc Int : 393 ms Atrial fibrillation Nonspecific T wave abnormality Abnormal ECG When compared with ECG of 02-NOV-2021 14:03, No significant change was found Confirmed by Yolanda Barrientos ([id number]) on 01/19/2024 4:44:11 PM Referred By: Electronically Signed By:Yolanda Barrientos Transcribed By: MUS Signed By Yolanda Barrientos MD 4 1644 Normal [facility] Basophils Auto (Bld) [#/Vol] on 01-07-2024 Basophils (Bld) [#/Vol] 0.1 10 3/uL 0.0-0.1 [facility] Basophils/100 WBC Auto (Bld) on 01-07-2024 Basophils/100 WBC (Bld) 0.8 % 0.2-2.0 [facility] Eosinophils/100 WBC Auto (Bl d)on 01-07-2024 Eosinophils/100 WBC (Bld) 1.0 % 0.9-7.0 [facility] Erythrocyte distribution wid th Auto (RBC) [Ratio]on 01-07-2024 Erythrocyte distribution width (RBC) [Ratio] 12.4 % 11.0-15.0 [facility] Estimated glomerular filtrat ion rate (GFR) non- Americanon 01-07-2024 GFR/1.73 sq M.predicted among non-blacks MDRD (S/P/Bld) [Vol rate/Area] mL/min/{1.73_m2} >=60 [facility] Globulin Calc (S) [Mass/Vol] on 01-07-2024 Globulin (S) [Mass/Vol] 3.3 g/dL [facility] Hematocrit Auto (Bld) [Volum e fraction]on 01-07-2024 Hematocrit (Bld) [Volume fraction] 47.3 % 42.0-54.0 [facility] Hemoglobin [Mass/volume] in Bloodon 01-07-2024 Hemoglobin (Bld) [Mass/Vol] 15.6 g/dL 14.0-18.0 [facility] Laboratory - Chemistry and C hemistry - challengeon 01-07-2024 Albumin [Mass/Vol] 3.7 g/dL 3.4-5.0 [facility] ALP [Catalytic activity/Vol] 85 U/L 46-116 [facility] ALT [Catalytic activity/Vol] 38 U/L 16-63 [facility] AST [Catalytic activity/Vol] 29 U/L 15-37 [facility] Bilirubin [Mass/Vol] 0.8 mg/dL 0.2-1.0 [facility] Calcium [Mass/Vol] 9.1 mg/dL 8.5-10.1 [facility] Chloride [Moles/Vol] 104 mmol/L 98-107 [facility] CO2 [Moles/Vol] 31.4 mmol/L 21.0-32.0 [facility] Creatinine [Mass/Vol] 1.00 mg/dL 0.70-1.30 [facility] GFR/1.73 sq M.predicted MDRD (S/P/Bld) [Vol rate/Area] mL/min/{1.73_m2} >=60 [facility] Glucose [Mass/Vol] 100 mg/dL 74-106 [facility] Potassium [Moles/Vol] 4.7 mmol/L 3.5-5.1 [facility] Protein [Mass/Vol] 7.0 g/dL 6.4-8.2 [facility] Sodium [Moles/Vol] 140 mmol/L 136-145 [facility] TSH Qn 1.839 m[IU]/L 0.358-3.740 [facility] Urea nitrogen [Mass/Vol] 15.0 mg/dL 7.0-18.0 [facility] Urea nitrogen/Creatinine [Mass ratio] 15.0 mg/mg [facility] Laboratory - Hematology and Cell countson 01-07-2024 Immature granulocytes/100 WBC (Bld) 0.4 % 0.0-0.5 [facility] Leukocytes [#/volume] correc cee for nucleated erythrocytes in Blood by Automated counon 01-07-2024 WBC corrected for nucl RBC Auto (Bld) [#/Vol] 7.3 10 3/uL 4.0-11.0 [facility] Lymphocytes Auto (Bld) [#/Vo l]on 01-07-2024 Lymphocytes (Bld) [#/Vol] 1.1 10 3/uL 1.2-3.8 [facility] Lymphocytes/100 WBC Auto (Bl d)on 01-07-2024 Lymphocytes/100 WBC (Bld) 15.3 % 20.5-60.0 [facility] MCH Auto (RBC) [Entitic mass ]on 01-07-2024 MCH (RBC) [Entitic mass] 31.6 pg 25.9-34.0 [facility] MCHC Auto (RBC) [Mass/Vol]on 01-07-2024 MCHC (RBC) [Mass/Vol] 33.0 g/dL 29.9-35.2 [facility] MCV Auto (RBC) [Entitic vol] on 01-07-2024 MCV (RBC) [Entitic vol] 95.7 fL 80.0-94.0 [facility] Monocytes Auto (Bld) [#/Vol] on 01-07-2024 Monocytes (Bld) [#/Vol] 0.6 10 3/uL 0.3-0.8 [facility] Monocytes/100 WBC Auto (Bld) on 01-07-2024 Monocytes/100 WBC (Bld) 7.5 % 1.7-12.0 [facility] Neutrophils Auto (Bld) [#/Vo l]on 01-07-2024 Neutrophils (Bld) [#/Vol] 5.5 10 3/uL 1.4-6.5 [facility] Neutrophils/100 WBC Auto (Bl d)on 01-07-2024 Neutrophils/100 WBC (Bld) 75.0 % 43.0-75.0 [facility] No Panel Informationon 01-06 Eosinophils # (Auto) 0.1 10 3/uL 0.0-0.7 [facility] Immature Granulocyte # (Auto) 0.03 10 3/uL 0.00-0.03 [facility] Platelet mean volume Auto (B ld) [Entitic vol]on 01-07-2024 Platelet mean volume (Bld) [Entitic vol] 10.3 fL 9.5-13.5 [facility] Platelets Auto (Bld) [#/Vol] on 01-07-2024 Platelets (Bld) [#/Vol] 172 10 3/uL 150-450 [facility] RBC Auto (Bld) [#/Vol]on RBC (Bld) [#/Vol] 4.94 10 6/uL 4.70-6.10 [facility] Serum or plasma albumin/glob ulin mass ratioon 01-07-2024 Albumin/Globulin [Mass ratio] 1.1 {ratio} [facility] Serum or plasma anion gap de terminationon 01-07-2024 Anion gap [Moles/Vol] 9.3 mmol/L [facility] Provider Letteron 11-21-2022 Provider Letter (Inserted Image. Viki ble to display) November 21, 2022 DAVID JAMA [id number] [id number] DAVID JAMA 1945 Dear Mr. Jama, We [...] prompt attention to this matter. Please call [phone] before end october to reschedule! Sincerely, [facility] [address], [place] [address] [facility] US CAROTID ART BILon 022 US CAROTID ART MICH EXAMINATION: US QUINTERO TID ART MICH HISTORY: Cardiovascular symptoms COMPARISON: No [...] by: LEDA MORALES Date: 2022-07-05 17:14 Normal [facility] RAD - CT Reporton 01-30-2022 RAD - CT Report [id number]:127 Normal [facility] Vital Signs Date Time Vital Sign Value Performing Clinician Facility 11-26-2024 12:03-0400 Body height 180.34 cm [facility] 11-26-2024 12:03-0400 Body mass index (BMI) [Ratio] 33.3 kg/m2 [facility] 11-26-2024 12:03-0400 Body weight 108.52 kg [facility] 11-26-2024 12:03-0400 Diastolic blood pressure 75 mm[Hg] [facility] 11-26-2024 12:03-0400 Heart rate 78 /min [facility] 11-26-2024 12:03-0400 Respiratory rate 12 /min [facility] 11-26-2024 12:03-0400 Systolic blood pressure 130 mm[Hg] [facility] 06-14-2024 13:42-0400 Body height 180.34 cm [facility] 06-14-2024 13:42-0400 Body mass index (BMI) [Ratio] 32.6 kg/m2 [facility] 06-14-2024 13:42-0400 Body weight 106.31 kg [facility] 06-14-2024 13:42-0400 Diastolic blood pressure 83 mm[Hg] [facility] 06-14-2024 13:42-0400 Heart rate 67 /min [facility] 06-14-2024 13:42-0400 Respiratory rate 12 /min [facility] 06-14-2024 13:42-0400 Systolic blood pressure 131 mm[Hg] [facility] 04-19-2024 10:43-0400 Body height 180.34 cm DO Domingo Ball Work Phone: [facility] 04-19-2024 10:43-0400 Body mass index (BMI) [Ratio] 32.5 kg/m2 DO Domingo Ball Work Phone: [facility] 04-19-2024 10:43-0400 Body weight 105.68 kg DO Domingo Ball Work Phone: [facility] 04-19-2024 10:43-0400 Diastolic blood pressure 74 mm[Hg] DO Domingo Ball Work Phone: [facility] 04-19-2024 10:43-0400 Heart rate 67 /min DO Domingo Ball Work Phone: [facility] 04-19-2024 10:43-0400 Respiratory rate 18 /min DO Domingo Ball Work Phone: [facility] 04-19-2024 10:43-0400 SaO2% (BldA) [Mass fraction] 97 % DO Domingo Ball Work Phone: [facility] 04-19-2024 10:43-0400 Systolic blood pressure 146 mm[Hg] DO Domingo Ball Work Phone: [facility] 02-09-2024 11:49-0400 Body height 180.34 cm DO Domingo Ball Work Phone: [facility] 02-09-2024 11:49-0400 Body mass index (BMI) [Ratio] 32.3 kg/m2 DO Domingo Ball Work Phone: [facility] 02-09-2024 11:49-0400 Body weight 105.23 kg DO Domingo Ball Work Phone: [facility] 02-09-2024 11:49-0400 Diastolic blood pressure 74 mm[Hg] DO Domingo Ball Work Phone: [facility] 02-09-2024 11:49-0400 Heart rate 77 /min DO Domingo Ball Work Phone: [facility] 02-09-2024 11:49-0400 Respiratory rate 18 /min DO Domingo Ball Work Phone: [facility] 02-09-2024 11:49-0400 SaO2% (BldA) [Mass fraction] 98 % DO Domingo Ball Work Phone: [facility] 02-09-2024 11:49-0400 Systolic blood pressure 132 mm[Hg] DO Domingo Ball Work Phone: [facility] 01-28-2024 16:30-0400 Diastolic blood pressure 72 mm[Hg] DO Domingo Ball Work Phone: [facility] 01-28-2024 16:30-0400 Heart rate 77 /min DO Domingo Ball Work Phone: [facility] 01-28-2024 16:30-0400 Respiratory rate 18 /min DO Domingo Ball Work Phone: [facility] 01-28-2024 16:30-0400 SaO2% (BldA) [Mass fraction] 96 % DO Domingo Ball Work Phone: [facility] 01-28-2024 16:30-0400 Systolic blood pressure 135 mm[Hg] DO Domingo Ball Work Phone: [facility] 01-28-2024 08:31-0400 Body height 180.34 cm DO Domingo Ball Work Phone: [facility] 01-28-2024 08:31-0400 Body temperature 96.7 [degF] DO Domingo Ball Work Phone: [facility] 01-28-2024 08:31-0400 Body weight 106 kg DO Domingo Ball Work Phone: [facility] 01-15-2024 15:11-0400 Body height 180.34 cm DO Domingo Ball Work Phone: [facility] 01-15-2024 15:11-0400 Body mass index (BMI) [Ratio] 32.6 kg/m2 DO Domingo Ball Work Phone: [facility] 01-15-2024 15:11-0400 Body weight 106.14 kg DO Domingo Ball Work Phone: [facility] 01-15-2024 15:11-0400 Diastolic blood pressure 68 mm[Hg] DO Domingo Ball Work Phone: [facility] 01-15-2024 15:11-0400 Heart rate 68 /min DO Domingo Ball Work Phone: [facility] 01-15-2024 15:11-0400 Respiratory rate 18 /min DO Domingo Ball Work Phone: [facility] 01-15-2024 15:11-0400 SaO2% (BldA) [Mass fraction] 97 % DO Domingo Ball Work Phone: [facility] 01-15-2024 15:11-0400 Systolic blood pressure 124 mm[Hg] DO Domingo Ball Work Phone: [facility] 01-09-2024 15:25-0400 Body height 180.34 cm [facility] 01-09-2024 15:25-0400 Body mass index (BMI) [Ratio] 32.5 kg/m2 [facility] 01-09-2024 15:25-0400 Body weight 105.68 kg [facility] 01-09-2024 15:25-0400 Diastolic blood pressure 66 mm[Hg] [facility] 01-09-2024 15:25-0400 Heart rate 76 /min [facility] 01-09-2024 15:25-0400 Respiratory rate 12 /min [facility] 01-09-2024 15:25-0400 Systolic blood pressure 114 mm[Hg] [facility] 12-15-2023 15:16-0400 Body height 180.34 cm [facility] 12-15-2023 15:16-0400 Body mass index (BMI) [Ratio] 32.8 kg/m2 [facility] 12-15-2023 15:16-0400 Body weight 106.7 kg [facility] 12-15-2023 15:16-0400 Diastolic blood pressure 74 mm[Hg] [facility] 12-15-2023 15:16-0400 Heart rate 85 /min [facility] 12-15-2023 15:16-0400 Respiratory rate 12 /min [facility] 12-15-2023 15:16-0400 Systolic blood pressure 170 mm[Hg] [facility] 12-05-2023 13:33-0400 Body height 180.34 cm [facility] 12-05-2023 13:33-0400 Body mass index (BMI) [Ratio] 34 kg/m2 [facility] 12-05-2023 13:33-0400 Body weight 110.67 kg [facility] 12-05-2023 13:33-0400 Diastolic blood pressure 88 mm[Hg] [facility] 12-05-2023 13:33-0400 Heart rate 80 /min [facility] 12-05-2023 13:33-0400 Respiratory rate 12 /min [facility] 12-05-2023 13:33-0400 Systolic blood pressure 138 mm[Hg] [facility] 08-13-2023 09:00-0500 Body height 180.34 cm Domingo Ball Other [employer] [facility] [employer] Other 08-13-2023 09:00-0500 Body mass index (BMI) [Ratio] 32.66 kg/m2 Domingo Ball Other [facility] Other 08-13-2023 09:00-0500 Body weight 106.23 kg Domingo Ball Other [facility] Other 08-13-2023 09:00-0500 Diastolic blood pressure 88 mm[Hg] Domingo Patterson Other [facility] Other 08-13-2023 09:00-0500 Respiratory rate 12 /min Domingo Patterson Other [facility] Other 08-13-2023 09:00-0500 Systolic blood pressure 139 mm[Hg] Domingo [email or web address] Other [facility] Other Encounters Encounter Date Encounter Type Care Provider Facility Start: 11-26-2024 End: 11-26-2024 ambulatory [facility] Work Phone: Start: 11-26-2024 End: 11-26-2024 Patient encounter procedure [facility] Work Phone: Start: 11-23-2024 Patient encounter procedure [facility] Start: 09-02-2024 End: 09-02-2024 Bamboo flowsheet Wiley Ramos MD Work Phone: [facility] Start: 09-02-2024 End: 09-02-2024 Bamboo flowsheet Wiley Ramos MD Work Phone: [facility] Start: 09-02-2024 End: 09-02-2024 ambulatory WILEY RAMOS Not Available Start: 07-05-2024 End: 07-05-2024 Bamboo flowsheet Rui Novoa ORDER PLANNER Work Phone: [facility] Start: 07-05-2024 End: 07-05-2024 Bamboo flowsheet Rui Novoa ORDER PLANNER Work Phone: [facility] Start: 07-05-2024 End: 07-05-2024 Office outpatient visit 25 minutes Rui Novoa ORDER PLANNER Work Phone: [facility] Comment on above: Right knee pain, uns pecified chronicity (Primary Dx); Arthritis of right knee Start: 07-05-2024 End: 07-05-2024 ambulatory RUI Espinoza APLING Not Available Start: 06-21-2024 End: 06-21-2024 Bamboo flowsheet Rui Novoa ORDER PLANNER Work Phone: [facility] Start: 06-21-2024 End: 06-21-2024 Bamboo flowsheet Rui Novoa ORDER PLANNER Work Phone: [facility] Start: 06-21-2024 End: 06-21-2024 Office outpatient visit 10 minutes Rui Novoa ORDER PLANNER Work Phone: [facility] Comment on above: Right knee pain, uns pecified chronicity (Primary Dx); Arthritis of right knee Start: 06-21-2024 End: 06-21-2024 ambulatory RUI Espinoza APLING Not Available Start: 06-14-2024 End: 06-14-2024 ambulatory [facility] Work Phone: Start: 06-14-2024 End: 06-14-2024 Patient encounter procedure [facility] Work Phone: Start: 06-09-2024 End: 06-09-2024 ambulatory [facility] Work Phone: Start: 06-09-2024 End: 06-09-2024 Patient encounter procedure [facility] Work Phone: Start: 04-19-2024 End: 04-19-2024 ambulatory DO Domingo Ball Work Phone: [facility] Work Phone: Start: 04-19-2024 End: 04-19-2024 Patient encounter procedure DO Domingo Ball Work Phone: [facility] Work Phone: Start: 02-09-2024 End: 02-09-2024 ambulatory DO Domingo Ball Work Phone: [facility] Work Phone: Start: 02-09-2024 End: 02-09-2024 Patient encounter procedure DO Domingo Ball Work Phone: [facility] Work Phone: Start: 01-28-2024 Non-patient / Non-visit DO Walter gibbons Ball Work Phone: [facility] Work Phone: Start: 01-28-2024 End: 01-28-2024 Admission to same day surgery center DO Domingo Ball Work Phone: [facility] Work Phone: Start: 01-28-2024 End: 01-28-2024 ambulatory DO Domingo Leonardo Work Phone: [facility] Work Phone: Start: 01-22-2024 End: 01-22-2024 Patient encounter procedure DO Domingo Ball Work Phone: [facility] [employer] Work Phone: Start: 01-22-2024 End: 01-22-2024 ambulatory DO Domingo Ball Work Phone: [facility] Work Phone: Start: 01-15-2024 End: 01-15-2024 ambulatory DO Domingo Ball Work Phone: [facility] Work Phone: Start: 01-15-2024 End: 01-15-2024 Patient encounter procedure DO Domingo Ball Work Phone: [facility] Work Phone: Start: 01-09-2024 End: 01-09-2024 ambulatory [facility] Work Phone: Start: 01-09-2024 End: 01-09-2024 Patient encounter procedure [facility] Work Phone: Start: 01-07-2024 Non-patient / Non-visit [facility] Work Phone: Start: 12-22-2023 End: 12-22-2023 ambulatory RUI Espinoza APLING Not Available Start: 12-15-2023 End: 12-15-2023 ambulatory [facility] Work Phone: Start: 12-15-2023 End: 12-15-2023 Patient encounter procedure [facility] Work Phone: Start: 12-12-2023 ambulatory [facility] Work Phone: Start: 12-12-2023 Non-patient / Non-visit [facility] Work Phone: Start: 12-10-2023 ambulatory [facility] Work Phone: Start: 12-10-2023 Non-patient / Non-visit [facility] Work Phone: Start: 12-05-2023 End: 12-05-2023 ambulatory [facility] Work Phone: Start: 12-05-2023 End: 12-05-2023 Patient encounter procedure [facility] Work Phone: Start: 09-30-2023 End: 09-30-2023 ambulatory Domingo Patterson Other [facility] Other Start: 09-30-2023 Telephone encounter Domingo Patterson FP [facility] Start: 08-15-2023 End: 08-15-2023 ambulatory Domingo Patterson Other A[facility] Other Start: 08-15-2023 Telephone encounter Domingo Patterson FP G [facility] Start: 08-13-2023 End: 08-13-2023 ambulatory Domingo Patterson Other AIM Other Start: 08-13-2023 Patient encounter procedure Domingo Patterson [facility] Start: 07-29-2023 End: 07-29-2023 ambulatory Domingo Patterson Other AIM Other Start: 07-29-2023 Telephone encounter Domingo DELGADO [facility] Start: 02-18-2023 End: 02-18-2023 ambulatory Domingo Patterson Other AIM Other Start: 02-18-2023 Telephone encounter Domingo DELGADO [facility] Start: 12-30-2022 End: 01-29-2023 ambulatory SHAIKH Reilly MORRELL Facility:[facility] Start: 12-03-2022 Office outpatient vi sit 15 minutes Domingo Patterson [facility] Start: 12-03-2022 End: 12-04-2022 ambulatory Sukhjinder Agnes MONTEMAYOR [facility] [employer] Other Start: 12-03-2022 End: 12-03-2022 Patient encounter procedure Ilir Mack Jr. [facility] Start: 12-02-2022 End: 12-27-2022 ambulatory SHAIKH Reilly MORRELL Facility:[facility] Start: 10-30-2022 End: 11-29-[address] DOMINGO PATTERSON Facility:[facility] Start: 10-02-2022 End: 10-30-2022 ambulatory SHAIKH Reilly MORRELL Facility:[facility] Start: 09-02-2022 End: 10-02-2022 ambulatory SHAIKH Reilly MORRELL Facility:[facility] Start: 08-13-2022 End: 08-13-2022 ambulatory MYA ODEN Facility:[facility] Start: 08-01-2022 End: 09-01-2022 ambulatory SHAIKH Reilly MORRELL Facility:[facility] Start: 07-08-2022 End: 07-08-2022 ambulatory JOAQUÍN SAUL Facility:[facility] Start: 07-05-2022 End: 07-06-[address] DOMINGO PATTERSON Facility:[facility] Start: 07-02-2022 End: 07-31-[address] DOMINGO PATTERSON Facility:[facility] Start: 06-02-2022 End: 07-01-[address] DOMINGO PATTERSON Facility:[facility] Start: 05-02-2022 End: 06-01-[address] DOMINGO PATTERSON Facility:[facility] Start: 04-01-2022 End: 05-01-[address] DOMINGO PATTERSON Facility:[facility] Start: 03-01-2022 End: 03-29-2022 ambulatory SHAIKH Reilly FOSTERFABIAN Facility:[facility] Start: 02-19-2022 ambulatory Sukhjinder Agnes Acevedo ty:[facility] [place] Start: 11-27-2021 End: 11-27-2021 Patient encounter procedure Ilir Mack Jr. [facility] Start: 09-20-2021 Adult health examination Domingo Patterson Other AIM Other Procedures Date Procedure Procedure Detail Performing Clinician Start: 09-02-2024 End: 09-02-2024 [facility] medical xm&eval comprhnsv estab pt 1/> PVD (posterior vitreous detachment), right eye Wiley Ramos MD Work Phone: Comment on above: PVD (posterior vitre ous detachment), right eye (Primary Dx); Pseudophakia Start: 07-05-2024 Arthrocentesis aspir &/inj major jt/bursa w/o us Rui Novoa ORDER PLANNER Work Phone: Start: 01-28-2024 CL AO Ascending w/He art Cath DO Domingo Patterson Work Phone: Start: 01-28-2024 CL Ivus Initial Vessel DO Domingo Patterson Work Phone: Start: 01-28-2024 CL LHC & COR Angio w/grafts DO Domingo Patterson Work Phone: Start: 01-28-2024 CL Stent 1st Vessel RCA LEAH DO Domingo Patterson Work Phone: Start: 01-28-2024 DO Vern Patterson Work Phone: Start: 11-07-2021 Transrectal biopsy o f prostate [...] Mack Jr. Start: 07-08-2014 Cystoscopy Ilir iqbal Start: 05-09-2010 Cysto/ TURP Ilir Julia iqbal Start: 04-24-2010 Cystoscopy Ilirzohra iqbal Start: 04-20-2010 Urodynamic studies Jyothi Mack Jr. Start: 04-06-2010 TRUS/BX Ilirzohra iqbal Start: 09-01-2001 TRUS/BX Ilir [facility] farida Coronary artery bypa ss graft operation planned Ilir Mack Jr. Depression screening Vern Patterson Other Plan of Treatment Date Care Activity Detail Author Start: 09-02-2024 End: 09-02-2024 Patient encounter procedure [facility] Comment on above: Arrived Start: 07-05-2024 End: 07-05-2024 Patient encounter procedure 07/05/2024 10:00 AM EST Office Visit [facility] [address] [place] [id number] Rui Novoa NP [address] [place] [address] Right knee pain, unspecified chronicity (Primary Dx); Arthritis of right knee [facility] Comment on above: Right knee pain, uns pecified chronicity (Primary Dx); Arthritis of right knee Start: 06-21-2024 End: 06-21-2024 Patient encounter procedure 06/21/2024 11:00 AM EDT Office Visit [facility] [address] [facility] [address] [place] [address] Rui Novoa NP [address] [facility] [address] [place] [address] Right knee pain, unspecified chronicity (Primary Dx); Arthritis of right knee [facility] Comment on above: Right knee pain, uns pecified chronicity (Primary Dx); Arthritis of right knee Start: 01-29-2024 [facility] Start: 01-28-2024 Hospital admission [facility] Start: 01-28-2024 End: 01-28-2024 [facility] Start: 01-28-2024 Hospital admission [facility] Start: 01-15-2024 [facility] Start: 01-15-2024 Patient referral [facility] Work Phone: Start: 01-09-2024 Patient referral [facility] Work Phone: Start: 12-12-2023 Patient referral [facility] Work Phone: Start: 12-10-2023 Patient referral [facility] Work Phone: Comprehensive metabo lic 1999 panel - Serum or Plasma [facility] Comprehensive metabo lic 1999 panel - Serum or Plasma [facility] Patient Education Coronary Angio plasty (DC) Know your [facility] Work Phone: Patient referral [facility] Work Phone: US Heart Transthoracic [facility] Immunizations Immunization Date Immunization Notes Care Provider Fa cility 06-09-2024 influenza, high dose seasonal, preservative-free [facility] 06-26-2023 COVID-19 (PFIZER) 12Y and older DO Domingo Patterson Work Phone: [facility] 06-09-2023 influenza virus vaccine, unspecified formulation [facility] 06-09-2023 influenza, high dose seasonal, preservative-free Domingo Patterson Other [facility] Other 06-28-2022 COVID-19 mRNA Bivale nt Booster (Pfizer) DO Domingo Patterson Work Phone: [facility] 06-24-2022 influenza virus vaccine, split virus (incl. purified surface antigen) Domingo Patterson Other [facility] Other 06-24-2022 influenza virus vaccine, unspecified formulation [facility] 03-16-2022 COVID-19 Comirnaty (Pfizer) Tri-Sucrose 12+ DO Domingo Patterson Work Phone: [facility] 07-09-2021 influenza virus vaccine, split virus (incl. purified surface antigen) Domingo Patterson Other [facility] Other 07-09-2021 influenza virus vaccine, unspecified formulation [facility] 06-10-2021 COVID-19 mRNA, Comirnaty (Pfizer) [facility] 06-03-2021 SARS-CoV-2 (COVID-19 ) Ad26 vaccine, recombinant Ilir Mack Jr. [facility] 11-10-2020 SARS-CoV-2 (COVID-19 ) Ad26 vaccine, recombinant Ilir Mack Jr. [facility] 10-27-2020 COVID-19 mRNA, Comirnaty (Pfizer) [facility] 10-13-2020 SARS-CoV-2 (COVID-19 ) Ad26 vaccine, recombinant Ilir Mack JrRoselia [facility] 10-06-2020 COVID-19 mRNA, Comirnaty (Pfizer) [facility] 06-06-2020 influenza virus vaccine, split virus (incl. purified surface antigen) Domingo Patterson Other [facility] [employer] Other 06-06-2020 influenza virus vaccine, unspecified formulation [facility] 06-04-2019 influenza virus vaccine, split virus (incl. purified surface antigen) Domingo Patterson Other [facility] Other 06-04-2019 influenza virus vaccine, unspecified formulation [facility] 06-12-2018 influenza virus vaccine, split virus (incl. purified surface antigen) Domingo Patterson Other [facility] Other 06-12-2018 influenza virus vaccine, unspecified formulation [facility] 06-30-2017 influenza virus vaccine, split virus (incl. purified surface antigen) Domingo Patterson Other [facility] Other 06-30-2017 influenza virus vaccine, unspecified formulation [facility] 06-27-2016 influenza virus vaccine, split virus (incl. purified surface antigen) Domingo Patterson Other [facility] Other 06-27-2016 influenza virus vaccine, unspecified formulation [facility] 08-21-2015 pneumococcal conjuga te vaccine, 13 valent Domingo Patterson Other [facility] 06-22-2015 tetanus and diphther ia toxoids, adsorbed, preservative free, for adult use (5 Lf of tetanus toxoid and 2 Lf of diphtheria toxoid) Domingo Patterson Other [facility] 07-08-2014 influenza virus vaccine, split virus (incl. purified surface antigen) Domingo Patterson Other [facility] Other 07-08-2014 influenza virus vaccine, unspecified formulation [facility] 07-08-2014 pneumococcal Conjuga te, unspecified formulation; Translations: [Need for prophylactic vaccination against Streptococcus pneumoniae (pneumococcus)] Domingo Patterson Other [facility] Other 07-08-2014 pneumococcal polysaccharide vaccine, 23 valent Domingo Patterson Other [facility] Payers Date Payer Category Payer Self-pay [id number] 2021 Medicaid [employer] MEDICARE A DVANTAGE [id number] 1959 Medicare [id number] 1945 Unknown [id number] [id number] 1945 Unknown [id number] 2.16.840.1.183045.3.579.2.727 1945 Unknown [id number] 2.16.840.1.658229.3.579.2.59 1946 Unknown [id number] 2.16.840.1.628280.3.579.2.59 1946 Unknown [id number] 2.16.840.1.759148.3.579.2.59 1946 Unknown [id number] 2.16.840.1.373925.3.579.2.593 1946 Unknown [id number] 2.16.840.1.129022.3.579.2.593 1946 Unknown [id number] 2.16.840.1.024370.3.579.2.593 1946 Unknown [id number] 2.16.840.1.902151.3.579.2.593 1946 Unknown [id number] 2.16.840.1.221071.3.579.2.593 1946 Unknown [id number] 2.16.840.1.173493.3.579.2.593 1946 Unknown [id number] 2.16.840.1.520667.3.579.2.593 1946 Unknown [id number] 2.16.840.1.520928.3.579.2.593 1946 Unknown [id number] 2.16.840.1.809079.3.579.2.593 1946 Unknown [id number] 2.16.840.1.151436.3.579.2.1259 1946 Unknown [id number] 2.16.840.1.607079.3.579.2.1259 1946 Unknown [id number] 2.16.840.1.047945.3.579.2.1259 1946 Unknown [id number] 2.16.840.1.880271.3.579.2.1259 Unknown [id number] 2.16.840.1.735087.3.579.2.531 Unknown [id number] 2.16.840.1.138216.3.579.2.531 Unknown [id number] 2.16.840.1.857232.3.579.2.531 Social History Date Type Detail Facility Start: 08-14-2021 End: 11-26-2024 Tobacco smoking status Ex-smoker (finding) [facility] Start: 12-22-2023 End: 07-05-2024 Sex Assigned At Male [facility] Start: 1945 Sex Assigned At Male F [facility] History of tobacco use Current smoker [facility] History of tobacco use Cigarette Smoker [facility] Start: 12-22-2023 End: 06-21-2024 Tobacco use and exposure Smokeless tobacco non-user [facility] Start: 12-22-2023 End: 09-02-2024 Alcoholic beverage intake Current drinker of alcohol (finding) [facility] Start: 12-22-2023 End: 07-05-2024 History of Social function [facility] Start: 1945 Sex assigned at Not on file [facility] Start: 11-26-2024 Sex Male (finding) [facility] Medical Equipment Procedure Code Equipment Code Equipment Origin al Text Equipment Identifier Dates CL STENT AMIE FRONTIER 4.0 X 38 FDA Start: 01-28-2024 CL STENT AMIE FRONTIER 4.0 X 38 FDA Start: 01-28-2024 CL STENT AMIE FRONTIER 4.0 X 38 FDA Start: 01-28-2024 CL STENT AMIE FRONTIER 4.0 X 38 FDA Start: 01-28-2024 CL STENT AMIE FRONTIER 4.0 X 38 FDA Start: 01-28-2024 Goals Date Patient Goal Desired Activity /State Clinical Notes 11-27-2021 to 09-02-2024 Wiley Ramos MD - 09/02/2024 9:15 AM Estefanía Novoa NP - 07/05/2024 10:00 AM Estefanía Novoa NP - 06/21/2024 11:00 AM EDT Note Date & Type Note Facility 09-02-2024 History of Presen t illness Narrative Assessment/Plan PVD: The patient has a posterior viterous detachment (PVD) in their affected eye (s). Patient was cautioned to call our office immediately if they experience a substantial change in their symptoms such as an increase in floaters, persistent flashes, loss of visual field (may appear as a shadow or a curtain) or decrease in visual acuity as these may indicate a retinal tear or detachment. documented in this encounter [facility] 07-05-2024 History of Presen t illness Narrative Associated Order(s): L Inj/Asp: R knee Post-Procedure Diagnose(s): Arthritis of right knee Images from the original note were not included. Subjective Patient ID: David Jama is a 79 y.o. male. RT Knee States his knee pain is the same as last visit. He played golf 06/11/24 and had increased pain after a swing. Knee is very stiff and he is unable to fully bend it. Has tried tyl, ice and heat w/o relief. His mortgage loan processor placed him on a statin and he stopped taking it for a week and the joint pain improved. He tried taking the statin again and the knee pain increased and he stopped taking it again. He had stopped the statin prior to the golfing incident. He began taking prednisone and took the last dose on 06/21/24, 10 days BID, with relief. He notes the is about 80% better than he was, he notes he is not able to sleep at night. He notes he still is not able to cross his leg. States he has increased pain when he bends the knee more than 90 degrees. Also states if he does quick movements on his daily walk he gets a dull ache posterior knee. Pain posterior knee. Pain at rest 0/10 with activities 3-4/10. States he still has difficulty putting on his shoes, when crossing his RT leg over his LT. Using heat with relief. Taking apsirin prn. Has tried voltaren gel and lidocaine patches with some relief. Denies swelling, denies N/T. [place]: PCP 06/14/24, 05/31/20 [facility], 05/12/20 [facility] MRI RT knee, depo medrol injection 05/31/20, PCP 06/14/24, voltaren gel, lidocaine patches, heat, aspirin. Objective Ortho Exam Knee Musculoskeletal Exam Inspection Right Erythema: none Effusion: mild Edema: none Ecchymosis: none Palpation Right Crepitus: patellofemoral Tenderness: present Medial joint line: mild Range of Motion Right Active extension: 0 Active flexion: 120 L Inj/Asp: R knee on 07/05/2024 10:39 AM Indications: pain Details: 20 G needle, anterolateral approach Medications: 40 mg methylPREDNISolone acetate 40 MG/ML UTILIZING ASEPTIC TECHNIQUE PT GIVEN INJECTION IN RIGHT KNEE, NEUROVASC INTACT S/P INJ, TOLERATED WELL Procedure, treatment alternatives, risks and benefits explained, specific risks discussed. Consent was given by the patient. Assessment/Plan Encounter Diagnoses: ICD-10-CM 1. Right knee pain, unspecified chronicity M25.561 2. Arthritis of right knee M17.11 Discussion of options, pt notes he would like an injection, side effects of bleeding and infection discussed, would like to proceed with the injection, using aspectic technique 40 mg of depo medrol was injected into the right lateral knee, pt tolerated well, bandaid applied, may do activities as tolerated, f/u prn documented in this encounter [facility] 06-21-2024 History of Presen t illness Narrative Images from the original note were not included. Subjective Patient ID: David Jama is a 79 y.o. male. RT Knee (no recent studies) 's office sending over office note He played golf 06/11/24 and had increased pain after a swing. Knee is very stiff and he is unable to fully bend it. Has tried tyl, ice and heat w/o relief. His mortgage loan processor placed him on a statin and he stopped taking it for a week and the joint pain improved. He tried taking the statin again and the knee pain increased and he stopped taking it again. He had stopped the statin prior to the golfing incident. He began taking prednisone and took the last dose this am, 10 days BID, with relief. He notes the is about 80 % better than he was, he notes he is not able to sleep at night. He notes he still is not able to cross his leg. Pain posterior. Pain at rest 0/10 with activities 2/10 since he was taking prednisone. Has used voltaren gel with some relief. Has used lidocaine patches with little relief. Denies swelling [place]: PCP 06/14/24, 05/31/20 [facility], 05/12/20 [facility] MRI RT knee, depo medrol injection 05/31/20, PCP 06/14/24 Objective Ortho Exam Knee Musculoskeletal Exam Inspection Right Erythema: none Effusion: mild Edema: none Ecchymosis: none Palpation Right Crepitus: patellofemoral Tenderness: present Range of Motion Right Active extension: 0 Active flexion: 115 I reviewed the pcp note from 06/14/24, pt was playing golf on 06/11/24 and had increased pain after his swing, went to PCP whom sent him to ortho since in the past injections have seemed to help with his knee pain. Assessment/Plan Encounter Diagnoses: ICD-10-CM 1. Right knee pain, unspecified chronicity M25.561 2. Arthritis of right knee M17.11 He is trending better, will continue to monitor, f/U in 1-2 weeks to see how he is doing documented in this encounter [facility] 08-13-2023 Evaluation note Encounter Date Diagnosis Assessment [...] are maintaining regular scheduled appts with their mortgage loan processor. Aug, Hypercholesteremia (ICD-10 - E78.00) Instructed on [...] use (ICD-10 - Z79.899) Check labs: CBC [facility] Other 04-04-2023 Evaluation note* Encounter Date Diagnosis [...] as Warfarin can be affected by Paxlovid [facility] Other 12-13-2022 NoteHNO ID: [id number] Author: Mya Oden V, MD Service: ? [...] patient was offered a surgery/procedure at a [facility] facility. The surgeon/proceduralist and patient have discussed [...] Mya ODEN MD August 13, 2022 12:27 [facility]12-13-2022 NoteHNO ID: [id number] Author: Chon Andersen OD Service: ? Author Type: ASSOCIATE PROFESSOR COMPUTER SCIENCE Type: Progress Notes Filed: 08/13/2022 12:32 PM [...] Chon Andersen, OD August 13, 2022 12:05 [facility]11-07-2022 NoteHNO ID: [id number] Author: Joaquín Saul MD Service: ? Author [...] at night; likely PVD related - Outside pickup driver recommend carotids, they were normal I have [...] MD Vitreoretinal Surgery AND Ocular Inflammatory Diseases [facility] Hospital Discharge instructions Patient Education 11/27/2021 12:13:58 [...] urethra. Follow these instructions at home: Take gnep-qxe-cryafbv and prescription medicines only as told by [...] 08/18/2006 Document Revised: 07/13/2019 Document Reviewed: 09/22/2017 [employer] Patient Education [employer]. Follow Up Care 11/05/2021 16:15:55 With:Frederick Eckert MD, Ilir Leach, URO Address: When:1 year Comments:w/psa [facility] evalyimyav + Plan note Future Appointments Appointment Date:12/03/2022 08:00:00 AM Scheduled Provider:Ilir Mack Jr., MD Location:[facility] Appointment Type:URO Office Visit Diagnostic Tests Pending * PSA Total 11/27/21 [facility] evalzotdtj noteNo [employer] Other Evaluation note* Diagnosis Onset Date Resolution Status Primary osteoarthritis of left knee noneactive Left knee pain noneactive Anticoagulated on Coumadin n oneactive [facility] Work Phone: Evaluation note* Diagnosis Onset Date Resolution Status Primary osteoarthritis of left knee noneactive Left knee pain noneactive Anticoagulated on Coumadin n oneactive ASHD (arteriosclerotic heart disease) acute Atrial fibrillation acute Chest pain acute [place]AISER (dyspnea on exertion[place] Hypercholesteremia acute Hypertension acute [facility] Work Phone: Evaluation note* Diagnosis Onset Date Resolution Status Primary osteoarthritis of left knee noneactive Left knee pain noneactive Anticoagulated on Coumadin n oneactive ASHD (arteriosclerotic heart disease) acute Atrial fibrillation acute Chest pain acute [place]ISER (dyspnea on exertion) [place] Hypercholesteremia acute Hypertension acute Abnormal stress test acute ASHD (arteriosclerotic heart disease) acute Atrial fibrillation acute Hypercholesteremia acute Hypertension acute Abnormal stress test acute ASHD (arteriosclerotic heart disease) acute Chest pain acute [place]ISER (dyspnea on exertion) [place] CHRISTINE (generalized anxiety disorder) acute Hypercholesteremia acute Hypertension acute Persistent atrial fibrillation acute [facility] Work Phone: Evaluation note* Diagnosis Onset Date Resolution Status Primary osteoarthritis of left knee noneactive Left knee pain noneactive Anticoagulated on Coumadin n oneactive ASHD (arteriosclerotic heart disease) acute Atrial fibrillation acute Chest pain acute [place]ER (dyspnea on exertion[place] Hypercholesteremia acute Hypertension acute Abnormal stress test acute ASHD (arteriosclerotic heart disease) acute Atrial fibrillation acute Hypercholesteremia acute Hypertension acute Abnormal stress test acute ASHD (arteriosclerotic heart disease) acute Chest pain acute [place] (dyspnea on exertion[place] CHRISTINE (generalized anxiety disorder) acute Hypercholesteremia acute Hypertension acute Persistent atrial fibrillation acute Abnormal stress test acute ASHD (arteriosclerotic heart disease) acute Chest pain acute [place]ER (dyspnea on exertion) [place] CHRISTINE (generalized anxiety disorder) acute Hypercholesteremia acute Hypertension acute Persistent atrial fibrillation acute [facility] Work Phone: Evaluation note* Diagnosis Onset Date Resolution Status Abnormal stress test acute ASHD (arteriosclerotic heart disease) acute Chest pain acute [place]ISER (dyspnea on exertion[place] CHRISTINE (generalized anxiety disorder) acute Hypercholesteremia acute Hypertension acute Persistent atrial fibrillation acute Abnormal stress test acute ASHD (arteriosclerotic heart disease) acute Chest pain acute [place] (dyspnea on exertion[place] CHRISTINE (generalized anxiety disorder) acute Hypercholesteremia acute Hypertension acute Persistent atrial fibrillation acute [facility] Work Phone: Evaluation note* Diagnosis Onset Date Resolution Status Abnormal stress test acute ASHD (arteriosclerotic heart disease) acute Chest pain acute [place]ER (dyspnea on exertion) [place] CHRISTINE (generalized anxiety disorder) acute Hypercholesteremia acute Hypertension acute Persistent atrial fibrillation acute [facility] Work Phone: Evaluation note* Diagnosis Right knee pain, unspecified chronicity- Primary Arthritis of right knee documented in this encounter [facility] HealthcareEvaluation note* Diagnosis Right knee pain, unspecified chronicity- Primary Arthritis of right knee documented in this encounter [facility]* Diagnosis PVD (posterior vitreous detachment), right eye- Primary Pseudophakia Lens replaced by other means documented in this encounter [facility] HealthcareEvaluation note* Diagnosis Onset Date Resolution Status Admit Date ASHD (arteriosclerotic heart disease) acute November 26, 2024 11:25am Atrial fibrillation acute November 26, 2024 11:25am High risk medication use acute November 26, 2024 11:25am Hypercholesteremia acute November 26, 2024 11:25am Hypertension acute November 26, 2024 11:25am Medicare annual wellness vis it, subsequent acute November 26, 2024 11:25am Screening PSA (prostate spec ific antigen) acute November 26, 2024 11:25am [facility] Work Phone: History general Narrative - Reported* Type Description Date Medical History hypertension Medical History BPH Surgical History open heart surgery 2007 Surgical History prostate surgery Phone2[facility] Other History general Narrative - Reported* Type Description Date Medical History hypertension Medical History BPH Surgical History open heart surgery 2007 Surgical History prostate surgery Hospitalization History see surgical hx Phone2[facility] Other Hospital course Narrative No data available for this section [facility] Hospital Discharge instructions No data available for this section [facility] Hospital Discharge instructionsAmbulatory Orders* Referral to Orthopedic Surgery Location: None Selected [facility] Work Phone: Hospital Discharge instructions Additional Instructions DISCHARGE INSTRUCTIONS FOR ANGIOPLASTY/CORONARY/PERIPHERAL/STENT IMPLANT FOR ADULT ANTICOAGULATION -Since the greatest risk of a blood clot forming with the stent occurs in the first 2-3 weeks after implantation, you will need to take anticoagulants for at least the next 30-90 days, in addition to Coumadin. Resume Coumadin tonight at prior dosage, have PT/INR checked in 5 days. ANTICOAGULATION MEDICATION: Aspirin 81mg once a day and Clopidogrel (Plavix) 75mg one tablet, in addition to Coumadin. STATIN MEDICATION: intolerance to statin medications, will discuss at next office visit. Drug-Eluting Stent (LEAH) DO NOT discontinue Plavix and/or Aspirin during the first few months regardless of what you are advised by your family doctor or pharmacist, without first calling your mortgage loan processor. If you require pain relief during this time, please take only ACETAMINOPHEN (TYLENOL)- NO additional aspirin or ibuprofen. DISCHARGE ACTIVITIES ARE FOLLOWS: First week after discharge: -Take it easy at home, no strenuous activity. -Do not lift or pull objects over 10-15 pounds, including children, and groceries for four weeks. If puncture site is at wrist do NOT lift more than three pounds for three days. - May walk up stairs. -May shower. -No excessive scrubbing of the affected site (groin). -May ride in car. -May resume sexual intercourse after 1-2 weeks. -No MRI for 12 days. -May drive in 4-7 days. -If puncture site is at the wrist do not manipulate the wrist for 24 hours, and no soaking wrist for three days. Second Week: -May take a bath -May start walking 3 times a week for 15-20 minutes at a leisurely pace. You should be able to carry on a conversation comfortably without feeling winded. -No strenuous activity as in jogging, running, weight lifting, stair steppers, etc. until the mortgage loan processor approves these activities. Check with the mortgage loan processor on your first follow-up visit. CALL YOUR HOT BILLET SHEAR OPERATOR: -If bleeding should occur from the catheter insertion site- apply pressure to the site then immediately call us. -Report any fever, redness, drainage, increased swelling, or firmness at the catheter insertion site. Some bruising or slight swelling may be present at the time of discharge. -Should arm or leg become cold, numb, white, or blue, contact the mortgage loan processor immediately. -IF you should experience episodes of angina, e.g. chest discomfort, heaviness, tightness, pressure burning with or without radiation to the neck, jaw, arms or back- use 1 Nitrostat tablet under your tongue every 5-10 minutes and up to three tablets. IF NO RELIEF, CALL 911 or GO TO THE NEAREST EMERGENCY ROOM. -Please notify our office if you have recurrent angina. -Cardiac Rehab Education Provided. Participation in the Cardiopulmonary Rehabilitation program is recommended. The attending mortgage loan processor or a nurse clinician should provide you with specific instructions regarding activity, diet, medications, and further follow up for you. Follow the medication instructions provided on your discharge. If the dosages and instructions on this sheet differ from the dosage and instructions on the bottle, follow the instructions on the bottle. [facility] is not responsible for incorrect prescription information provided by the patient during their visit. Do not stop your medications without consulting your health care provider. Please take the list with you to your next doctor's appointment.[facility] Work Phone: Progress note No data available for this section [facility] Summary Purpose Family History Relationship Condition Age at Onset Recorded Date/[place] Not Specified Cerebrovascular accident (CVA) Unknown father Cerebrovascular accident (CVA) Unknown brother Carotid artery disease Unknown Relationship Condition Age at Onset Recorded Date/T [place] Not Specified Cerebrovascular accident (CVA) Unknown Hypertension Unknown father Cerebrovascular accident (CVA) Unknown Deep vein thrombosis (DVT) Unknown brother Carotid artery disease Unknown Cerebrovascular accident (CVA) Unknown Heart disease Unknown Relationship Condition Age at Onset Recorded Date/[place] mother Cerebrovascular accident (CVA) Unknown Hypertension Unknown father Cerebrovascular accident (CVA) Unknown Deep vein thrombosis (DVT) Unknown brother Carotid artery disease Unknown Cerebrovascular accident (CVA) Unknown Heart disease Unknown Advance Directives Advance Directive Response Recorded Date/ Time Advance Directives No August 10:49am Advance Directive Response Recorded Date/ Time Advance Directives No January 13 10:29am Chief Complaint and Reason for Visit Chief [...] pain KAISER (dyspnea on exertion) Hypercholesteremia Hypertension Chief Complaint Pain in Knee increased BP discuss recent testing results ASHD, A-Fib Reason for Visit Primary osteoarthrit is of left knee Left knee pain Anticoagulated on Coumadin ASHD (arteriosclerotic heart disease) Atrial fibrillation Chest pain KAISER (dyspnea on exertion) Hypercholesteremia Hypertension Abnormal stress test ASHD (arteriosclerotic heart disease) Atrial fibrillation Hypercholesteremia Hypertension Abnormal stress test ASHD (arteriosclerotic heart disease) Chest pain KAISER (dyspnea on exertion) CHRISTINE (generalized anxiety disorder) Hypercholesteremia Hypertension Persistent atrial fibrillation Chief Complaint Pain in Knee increased BP discuss recent testing results ASHD, A-Fib Abnormal Stress Test, Chest Pain, CAD, Dyspnea Reason for Visit Primary osteoarthrit is of left knee Left knee pain Anticoagulated on Coumadin ASHD (arteriosclerotic heart disease) Atrial fibrillation Chest pain KAISER (dyspnea on exertion) Hypercholesteremia Hypertension Abnormal stress test ASHD (arteriosclerotic heart disease) Atrial fibrillation Hypercholesteremia Hypertension Abnormal stress test ASHD (arteriosclerotic heart disease) Chest pain KAISER (dyspnea on exertion) CHRISTINE (generalized anxiety disorder) Hypercholesteremia Hypertension Persistent atrial fibrillation Chief Complaint Pain in Knee increased BP discuss recent testing results ASHD, A-Fib Abnormal Stress Test, Chest Pain, CAD, Dyspnea Abnormal Stress Test, Chest Pain, CAD, Dyspnea Abnormal Stress Test, Chest Pain, CAD, Dyspnea Reason for Visit Primary osteoarthrit is of left knee Left knee pain Anticoagulated on Coumadin ASHD (arteriosclerotic heart disease) Atrial fibrillation Chest pain KAISER (dyspnea on exertion) Hypercholesteremia Hypertension Abnormal stress test ASHD (arteriosclerotic heart disease) Atrial fibrillation Hypercholesteremia Hypertension Abnormal stress test ASHD (arteriosclerotic heart disease) Chest pain KAISER (dyspnea on exertion) CHRISTINE (generalized anxiety disorder) Hypercholesteremia Hypertension Persistent atrial fibrillation Chief Complaint Pain in Knee increased BP discuss recent testing results ASHD, A-Fib Abnormal Stress Test, Chest Pain, CAD, Dyspnea Abnormal Stress Test, Chest Pain, CAD, Dyspnea Abnormal Stress Test, Chest Pain, CAD, Dyspnea Cath/PCI 01/27 Reason for Visit Primary osteoarthrit is of left knee Left knee pain Anticoagulated on Coumadin ASHD (arteriosclerotic heart disease) Atrial fibrillation Chest pain KAISER (dyspnea on exertion) Hypercholesteremia Hypertension Abnormal stress test ASHD (arteriosclerotic heart disease) Atrial fibrillation Hypercholesteremia Hypertension Abnormal stress test ASHD (arteriosclerotic heart disease) Chest pain KAISER (dyspnea on exertion) CHRISTINE (generalized anxiety disorder) Hypercholesteremia Hypertension Persistent atrial fibrillation Abnormal stress test ASHD (arteriosclerotic heart disease) Chest pain KAISER (dyspnea on exertion) CHRISTINE (generalized anxiety disorder) Hypercholesteremia Hypertension Persistent atrial fibrillation Chief Complaint Abnormal Stress Test , Chest Pain, CAD, Dyspnea Abnormal Stress Test, Chest Pain, CAD, Dyspnea Abnormal Stress Test, Chest Pain, CAD, Dyspnea Cath/PCI 01/27 2 months Reason for Visit Abnormal stress test ASHD (arteriosclerotic heart disease) Chest pain KAISER (dyspnea on exertion) CHRISTINE (generalized anxiety disorder) Hypercholesteremia Hypertension Persistent atrial fibrillation Abnormal stress test ASHD (arteriosclerotic heart disease) Chest pain KAISER (dyspnea on exertion) CHRISTINE (generalized anxiety disorder) Hypercholesteremia Hypertension Persistent atrial fibrillation Chief Complaint 2 months flu shot Reason for Visit Abnormal stress test ASHD (arteriosclerotic heart disease) Chest pain KAISER (dyspnea on exertion) CHRISTINE (generalized anxiety disorder) Hypercholesteremia Hypertension Persistent atrial fibrillation Chief Complaint 2 months flu shot R Leg Pain Reason for Visit Abnormal stress test ASHD (arteriosclerotic heart disease) Chest pain KAISER (dyspnea on exertion) CHRISTINE (generalized anxiety disorder) Hypercholesteremia Hypertension Persistent atrial fibrillation Chief Complaint Admit Date wellness November 26, 2024 11: 25am Reason for Visit Admit Date ASHD (arteriosclerotic heart disease) [facility] 2024 11:25am Atrial fibrillation November 26, 2024 11: 25am High risk medication use November 26 11:25am Hypercholesteremia November 26, 2024 11: 25am Hypertension November 26, 2024 11: 25am Medicare annual wellness visit, subseque nt November 26, 2024 11:25am Screening PSA (prostate specific antigen ) November 26, 2024 11:25am Additional Source Comments (unrecognized sect ion and content) No Status Records FoundNo Status Records FoundNo Status Records FoundNo Status Records FoundNo Status Records Found INFORMATION SOURCE (unrecogn ized section and content) DATE CREATED AUTHOR 08/14/2022 [facility] DATE CREATED AUTHOR AUTHOR'S ORGANIZ ATION 12/04/2022 Narayan [facility] DATE CREATED AUTHOR AUTHOR'S ORGANIZ ATION 02/07/2023 [facility] DATE CREATED AUTHOR AUTHOR'S ORGANIZ ATION 02/25/2024 [facility] DATE CREATED AUTHOR AUTHOR'S ORGANIZ ATION 09/03/2024 [facility] EPIC REASON FOR VISIT (unrecogniz ed section and content) Reason Comments Follow-up Reason Comments Eye Exam Spots and/or Floaters Patient Care team informatio n (unrecognized section and content) Team Status: Active Member Role Status Dates Domingo Patterson DO Primary Care Provider Active Team Status: Inactive Member Role Status Dates Domingo Patterson DO Primary Care Provide r, Attending Provider Active Start: December 05, 2023 End: December 05, 2023 Team Status: Active Member Role Status Marci Patterson DO Primary Care Provide r, Attending Provider Active Start: December 10, 2023 Team Status: Active Member Role Status Marci Patterson DO Primary Care Provide r, Attending Provider Active Start: December 12, 2023 Team Status: Inactive Member Role Status Marci Patterson DO Primary Care Provide r, Attending Provider Active Start: December 15, 2023 End: December 15, 2023 Team Status: Active Member Role Status Marci Patterson DO Primary Care Provide r, Attending Provider Active Start: January 07, 2024 Team Status: Inactive Member Role Status Marci Patterson DO Primary Care Provide r, Attending Provider Active Start: January 09, 2024 End: January 09, 2024 Team Status: Inactive Member Role Status Marci Patterson DO Primary Care Provider Active Start: January 15, 2024 End: January 15, 2024 Yolanda Barrientos MD Attending Provider Active Sta rt: January 15, 2024 End: January 15, 2024 Team Status: Inactive Member Role Status Marci Patterson DO Primary Care Provider Active Start: January 22, 2024 End: January 22, 2024 Vic Aquino MD Attending Provider Active Star t: January 22, 2024 End: January 22, 2024 Team Status: Active Member Role Status Dates Yolanda Barrientos MD [employer] Active Domingo Patterson DO Primary Care Provider Active Team Status: Inactive Member Role Status Dates Domingo Patterson DO Primary Care Provider Active Start: January 28, 2024 End: January 28, 2024 Ying Silva DO Attending Provider Active S tart: January 28, 2024 End: January 28, 2024 Team Status: Active Member Role Status Dates Domingo Patterson DO Primary Care Provider Active Start: January 28, 2024 Vic Aquino MD Attending Provider, Other Provider A ctive Start: January 28, 2024 Team Status: Inactive Member Role Status Dates Domingo Patterson DO Primary Care Provider Active Start: February 09, 2024 End: February 09, 2024 Yolanda Barrientos MD Attending Provider Active Sta rt: February 09, 2024 End: February 09, 2024 Team Status: Inactive Member Role Status Dates Domingo Patterson DO Primary Care Provider Active Start: April 19, 2024 End: April 19, 2024 Yolanda Barrientos MD Attending Provider Active Sta rt: April 19, 2024 End: April 19, 2024 Team Status: Inactive Member Role Status Dates Domingo Patterson DO Primary Care Provide r, Attending Provider Active Start: June 09, 2024 End: June 09, 2024 Team Status: Inactive Member Role Status Dates Domingo Patterson DO Primary Care Provide r, Attending Provider Active Start: June 14, 2024 End: June 14, 2024 [facility] Director Relationship Specialty Start Date End Date Domingo Patterson MD [address] [place] [id number] PCP - General Internal Medicine 08/14/23 [facility] Director Relationship Specialty Start Date End Date Domingo Patterson MD [address] [place] [id number] PCP - General Internal Medicine 08/14/23 [facility] Director Relationship Specialty Start Date End Date Domingo Patterson MD [address] [place] [id number] PCP - General Internal Medicine 08/14/23 [facility] Director Relationship Specialty Start Date End Date Domingo Patterson MD [address] [place] [id number] PCP - General Internal Medicine 08/14/23 [facility] Director Relationship Specialty Start Date End Date Domingo Patterson MD [address] [place] [id number] PCP - General Internal Medicine 08/14/23 Team Status: Inactive Member Role Status Dates Domingo Patterson , DO Primary Care Provide r, Attending Provider Active Start: November 26, 2024 End: November 26, 2024 Goals (unrecognized section and content) Goals [...] BE BASED ON THE PRIMARY CLINICAL RECORDS. Phone2Action [facility]. provides no warranty or guarantee of the accuracy or completeness of information in this document.
[2024-12-13 10:15] LABS: Alanine Aminotransferase 38 U/L (16-63); Albumin Globulin Ratio 1.2; Albumin Level 3.7 g/dL (3.4-5.0); Alkaline Phosphatase 101 U/L (46-116); Anion Gap 10.4; Aspartate Amino Transferase 34 U/L (15-37); Bilirubin Total 0.8 mg/dL (0.2-1.0); Carbon Dioxide 30.1 mmol/L (21.0-32.0); Chloride 104 mmol/L (98-107); Chol HDL Ratio 3.6; Cholesterol 196 mg/dL (<=200); Estimated GFR (African America >60 (>=60 mL/min/1.73m^2); Estimated GFR (Non-African Ame >60 (>=60 mL/min/1.73m^2); Globulin 3.1 g/dL; Glucose 111 mg/dL (74-106); HDL Cholesterol 54 mg/dL (40-60); LDL Cholesterol Calculated 132.8 mg/dL; Potassium 4.5 mmol/L (3.5-5.1); Sodium 140 mmol/L (136-145); Total Protein 6.8 g/dL (6.4-8.2); Triglycerides 46 mg/dL (<=150); VLDL CHOLESTEROL 9.2 mg/dL
== END 2024-12-13 09:19 | disposition home or self-care (01) ==
LOC: LAB 09:19
PROVIDERS: PCP Internal Medicine; Visit Provider Internal Medicine
DX: I25.10 Atherosclerotic heart disease of native coronary artery without angina pectoris (principal); I10 Essential (primary) hypertension; Z79.899 Other long term (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
CPT/HCPCS: 36415; 80053; 80061; 85025

== ENCOUNTER 2024-12-30 04:39 | Outpatient (RCR) | payer MEDICARE, SELFPAY | END 2025-01-29 07:20 | disposition home or self-care (01) | LOC: MM 04:39 | PROVIDERS: PCP Internal Medicine; Visit Provider Internal Medicine | DX: Z51.81 Encounter for therapeutic drug level monitoring (principal); Z79.01 Long term (current) use of anticoagulants | CPT/HCPCS: 85610; G0463 ==

== ENCOUNTER 2025-01-30 07:49 | Outpatient (RCR) | payer MEDICARE, SELFPAY | END 2025-02-24 14:44 | disposition home or self-care (01) | LOC: MM 07:49 | PROVIDERS: PCP Internal Medicine; Visit Provider Internal Medicine | DX: Z51.81 Encounter for therapeutic drug level monitoring (principal); Z79.01 Long term (current) use of anticoagulants | CPT/HCPCS: 85610; G0463 ==

== ENCOUNTER 2025-03-01 02:28 | Outpatient (RCR) | payer MEDICARE, SELFPAY | END 2025-03-31 16:51 | disposition home or self-care (01) | LOC: MM 02:28 | PROVIDERS: PCP Internal Medicine; Visit Provider Internal Medicine | DX: Z51.81 Encounter for therapeutic drug level monitoring (principal); Z79.01 Long term (current) use of anticoagulants | CPT/HCPCS: 85610; G0463 ==

== ENCOUNTER 2025-04-01 01:41 | Outpatient (RCR) | payer MEDICARE, SELFPAY | END 2025-04-28 13:13 | disposition home or self-care (01) | LOC: MM 01:41 | PROVIDERS: PCP Internal Medicine; Visit Provider Internal Medicine | DX: Z51.81 Encounter for therapeutic drug level monitoring (principal); Z79.01 Long term (current) use of anticoagulants; I48.91 Unspecified atrial fibrillation | CPT/HCPCS: 85610; G0463 ==

== ENCOUNTER 2025-05-02 00:32 | Outpatient (RCR) | payer MEDICARE, SELFPAY | END 2025-05-31 15:46 | disposition home or self-care (01) | LOC: MM 00:32 | PROVIDERS: PCP Internal Medicine; Visit Provider Internal Medicine | DX: Z51.81 Encounter for therapeutic drug level monitoring (principal); Z79.01 Long term (current) use of anticoagulants; I48.91 Unspecified atrial fibrillation ==

== ENCOUNTER 2025-06-01 01:25 | Outpatient (RCR) | payer MEDICARE, SELFPAY | END 2025-07-01 23:59 | disposition home or self-care (01) | LOC: MM 01:25 | PROVIDERS: PCP Internal Medicine; Visit Provider Internal Medicine | DX: Z51.81 Encounter for therapeutic drug level monitoring (principal); Z79.01 Long term (current) use of anticoagulants; I48.91 Unspecified atrial fibrillation | CPT/HCPCS: 85610; G0463 ==

== ENCOUNTER 2025-07-02 | Outpatient (RCR) | payer MEDICARE, SELFPAY | END 2025-07-31 23:59 | disposition home or self-care (01) | LOC: MM | PROVIDERS: PCP Internal Medicine; Visit Provider Internal Medicine | DX: Z51.81 Encounter for therapeutic drug level monitoring (principal); Z79.01 Long term (current) use of anticoagulants; I48.91 Unspecified atrial fibrillation | CPT/HCPCS: 85610; G0463 ==

== ENCOUNTER 2025-08-03 11:30 | Outpatient (RCR) | payer MEDICARE, SELFPAY | END 2025-08-31 13:20 | disposition home or self-care (01) | LOC: MM 11:30 | PROVIDERS: PCP Internal Medicine; Visit Provider Internal Medicine | DX: Z51.81 Encounter for therapeutic drug level monitoring (principal); Z79.01 Long term (current) use of anticoagulants; I48.91 Unspecified atrial fibrillation | CPT/HCPCS: 85610; G0463 ==